=== PATIENT | female | born 1970 | race Caucasian/White ===

== ENCOUNTER 2016-12-02 21:57 | Inpatient (IN) | payer MEDICAID ==
[~2016-12-02] VITALS: Ht 167.6 cm; Wt 99.8 kg
[~2016-12-02 21:57] MED LIST: ALBUTEROL2.5 MG/3 M INH; BENADRYL50 MG ORAL; FERROUS SULFAT325 MG ORAL; GABAPENTIN300 MG ORAL; MOTRIN IB200 MG ORAL; NORCO 5-325 TA1 EACH ORAL; TEGRETOL XR200 MG ORAL; TRAMADOL HCL50 MG ORAL; VENLAFAXINE HCL25 MG ORAL; ZOFRAN ODT4 MG ORAL
[2016-12-02] MEDS ORDERED: HYDROmorphone 1mg/ml Carpuject IVP ONE (22:30)
--- NOTE | 2016-12-02 22:32 | Emergency Room Report ---
History of Present Illness General Chief Complaint: Chest Pain Source: Patient Present Illness HPI This is a 46-year-old female with a history of chronic pain. She presents with chief complaint of chest pain. Onset for last 2 days. She says been coughing for last 2 days and woke up with severe pain. Worse with inspiration. Worse with movement. Nothing made it better. Pain is 10 out of 10. Localized the left chest. No radiation. No diaphoresis. No shortness of breath. Allergies: Coded Allergies: AMOXICILLIN (Verified Allergy, Mild, 06/28/15) ASPIRIN (Verified Allergy, Mild, 06/28/15) SALICYLATES (Verified Allergy, Mild, 06/28/15) Patient History Past Medical History: see triage record, old chart reviewed Past Surgical History: other Pertinent Family History: none Social History: Denies: alcohol use, drug use, smoking Now: No Immunizations: other Reviewed Nursing Documentation: PMH: Agreed, PSxH: Agreed Nursing Documentation-PMH Hx Asthma: Yes Hx Gastrointestinal Problems: Yes - GALLSTONES Review of Systems Eye: Denies: blurred vision, eye pain ENT: Denies: ear pain, nose congestion, throat swelling Respiratory: Denies: cough, shortness of breath Cardiovascular: Reports: chest pain, Denies: palpitations Gastrointestinal: Denies: abdominal pain, diarrhea, nausea, vomiting Musculoskeletal: Denies: back pain, joint pain Skin: Denies: rash Neurological: Denies: headache, numbness Endocrine: Denies: increased thirst, increased urine Hematologic/Lymphatic: Denies: easy bruising All Other Systems: negative except mentioned in HPI Physical Exam Vital Signs Date Time Temp Pulse Resp B/P Pulse Ox O2 Delivery O2 Flow Rate FiO2 12/02/16 22:14 98.8 111 18 112/69 91 Room Air vitals with tachycardia and hypoxia Sp02 EP Interpretation: abnormal General Appearance: well appearing, alert, GCS 15, mild distress Head: normocephalic, atraumatic Eyes: bilateral eye EOMI, bilateral eye PERRL ENT: hearing grossly normal, normal pharynx Neck: full range of motion, supple, no meningismus Respiratory: chest non-tender, crackles - Left side Cardiovascular #1: regular rate, rhythm, no murmur Gastrointestinal: normal bowel sounds, non tender, no mass, no organomegaly, no bruit, non-distended Musculoskeletal: back normal, gait/station normal, normal range of motion Psychiatric: mood/affect normal Skin: warm/dry Medical Decision Making Diagnostic Impression: Primary Impression: Pneumonia Qualified Codes: J18.9 - Pneumonia, unspecified organism Additional Impressions: Intractable pain Sepsis Qualified Codes: A41.9 - Sepsis, unspecified organism Cocaine abuse Amphetamine abuse Proteinuria ER Course Patient presents with chest pain and finding consistent with pneumonia. CT scan also showed pneumonia. No evidence of any ACS, PE, dissection to name a few. She continued to complain of severe pain. Because of this we'll admit for IV antibiotics and pain control. This may be secondary to drug abuse. Lab Results Impression labs with leukocytosis. EKG Diagnostic Results Rate: normal, tachycardiac Rhythm: NSR ST Segments: no acute changes Rhythm Strip Diag. Results EP Interpretation: yes Rate: 100 Rhythm: NSR, no PVC's, no ectopy Chest X-Ray Diagnostic Results EP Interpretation: Yes Findings: no pneumothorax, other - LLL infiltrate with effusion Number of Views: 1 CT/MRI/US Diagnostic Results CT/MRI/US Diagnostic Results : Imaging Test Ordered: CT chest Impression Read by radiologist as LLL infiltrate with effusion. Last Vital Signs Date Time Temp Pulse Resp B/P Pulse Ox O2 Delivery O2 Flow Rate FiO2 12/02/16 22:14 98.8 111 18 112/69 91 Room Air Status: improved Disposition: ADMITTED INPATIENT Condition: Serious MITCH TANNER M.D. Dec 02, 2016 22:32
[2016-12-02 22:57] VITALS: BP 128/68
[2016-12-02 23:10] LABS: BASOPHILS % (AUTO) 0.7 % (0.0-2.0); LYMPHOCYTES % (AUTO) 13.7 % (20.0-45.0); MEAN CORPUSCULAR HGB CONC 33.4 G/DL (32.0-36.0); MEAN CORPUSCULAR VOLUME 90 FL (80-99); MEAN PLATELET VOLUME 5.8 FL (6.5-10.1); MONOCYTES % (AUTO) 8.3 % (1.0-10.0); NEUTROPHILS % (AUTO) 74.4 % (45.0-75.0); PLATELET COUNT 519 K/UL (150-450); RED BLOOD COUNT 4.72 M/UL (4.20-5.40); RED CELL DISTRIBUTION WIDTH 11.6 % (11.6-14.8); WHITE BLOOD COUNT 17.9 K/UL (4.8-10.8)
[2016-12-02 23:20] LABS: APPEARANCE,URINE SLIGHTLY CLOUDY; KETONES,URINE 1+ (NEGATIVE); LEUKOCYTE ESTERASE ,URINE 1+ (NEGATIVE); NITRITE,URINE NEGATIVE (NEGATIVE); PH,URINE 5 (4.5-8.0); PROTEIN,URINE 2+ (NEGATIVE); UROBILINOGEN,URINE 4 MG/DL (0.0-1.0)
[2016-12-02 23:24] LABS: ALANINE AMINOTRANSFERASE 26 U/L (3-33); ANION GAP 18 (5-15); ASPARTATE AMINO TRANSFERASE 28 U/L (5-40); CALCIUM 8.8 mg/dL (8.6-10.2); CARBON DIOXIDE 25 mEQ/L (20-30); CHLORIDE 94 mEQ/L (98-107); CREATININE 0.8 mg/dL (0.5-0.9); GLOMERULAR FILTRATION RATE > 60 mL/min (>60); HEMOLYSIS 2; POTASSIUM 3.4 mEQ/L (3.4-4.9); SODIUM 137 mEQ/L (135-145); TOTAL PROTEIN 7.1 g/dL (6.6-8.7); TROPONIN I < 0.30 ng/mL (<=0.30)
[2016-12-02 23:25] LABS: ICTOTEST POSITIVE
[2016-12-02 23:27] LABS: BACTERIA,URINE FEW /HPF; RBC,URINE 0-2 /HPF (0 - 2); SQUAMOUS EPITHELIAL CELL,UR MODERATE /LPF (NONE/OCC); WBC,URINE 0-2 /HPF (0 - 2)
[2016-12-02 23:28] LABS: MUCUS,URINE MODERATE /LPF (NONE/OCC)
[2016-12-02 23:34] LABS: CKMB < 1.5 ng/mL (< 3.8)
[2016-12-02 23:42] LABS: REFLEX LACTIC ACID YES OR NO YES
[2016-12-02 23:50] VITALS: BP 123/72
[2016-12-03] MEDS ORDERED: cefTRIAXone 1 GM in NS 55 ML IVPB ONE (01:15)
[2016-12-03] MEDS ORDERED: Morphine Sulfate 4mg/ml Inj IVP ONE ×2 (01:30→02:15)
[2016-12-03 02:05] VITALS: BP 124/77
[2016-12-03] MEDS ORDERED: Azithromycin 250mg tab ORAL ONE (02:15)
[2016-12-03 03:18] VITALS: BP 121/71
[2016-12-03] MEDS ORDERED: GABAPENTIN600 MG ORAL (04:28)
[2016-12-03] MEDS ORDERED: IBUPROFEN600 MG ORAL (04:31)
[2016-12-03] MEDS ORDERED: CYCLOBENZAPRINE10 MG ORAL (04:34)
[2016-12-03] MEDS ORDERED: DILAUDID2 MG ORAL (04:37)
[2016-12-03] MEDS ORDERED: MELOXICAM7.5 MG PO (04:37)
[2016-12-03] MEDS ORDERED: PRILOSEC OTC20 MG ORAL (04:37)
[2016-12-03] MEDS ORDERED: TYLENOL EXTRA500 MG ORAL (04:37)
[2016-12-03] MEDS ORDERED: Promethazine/Codeine 5ml UD ORAL PRN (06:15)
[2016-12-03] MEDS ORDERED: Nitroglycerin Subl 0.4mg tab (Bottle Of 25) SL PRN (06:15)
[2016-12-03] MEDS ORDERED: DuoNeb 0.5-3(2.5)mg/3ml neb HHN PRN (06:15)
[2016-12-03] MEDS ORDERED: Miralax 17gm pkt ORAL PRN (06:15)
[2016-12-03] MEDS ORDERED: Mylanta II UD 30ml ORAL PRN (06:15)
[2016-12-03 08:13] VITALS: BP 119/74
[2016-12-03] MEDS: Heparin 5000 units/ml inj SUBQ SCH ×2 (09:00→20:23)
[2016-12-03] MEDS: carBAMazepine XR 200mg tab ORAL SCH (09:00)
[2016-12-03] MEDS: Vancomycin 1250mg in D5W 275ml IVPB SCH ×3 (09:11→22:28)
--- NOTE | 2016-12-03 09:16 | Infectious Diseases Prog Note ---
Assessment/Plan Problems: (1) CAP (community acquired pneumonia) Assessment & Plan: continue vancomycin and aztreonam empirically, send blood and sputum culture (2) Sepsis Assessment & Plan: due to pneumonia , continue wide spectrum antibiotics , send blood culture (3) Drug abuse Assessment & Plan: will screen for HIV and hepatitis, recommend counseling and rehabilitation (4) UTI (urinary tract infection) Assessment & Plan: continue aztreonam and send culture Subjective Allergies: Coded Allergies: AMOXICILLIN (Verified Allergy, Mild, 06/28/15) ASPIRIN (Verified Allergy, Mild, 06/28/15) SALICYLATES (Verified Allergy, Mild, 06/28/15) Objective Vital Signs Last 24 Hour Vital Signs Date Time Temp Pulse Resp B/P Pulse Ox O2 Delivery O2 Flow Rate FiO2 12/03/16 08:13 99.0 102 19 119/74 95 Room Air 12/03/16 08:08 101 20 Room Air 12/03/16 03:30 98.8 101 20 121/71 94 Room Air 12/03/16 03:18 98.8 101 20 121/71 94 Room Air 12/03/16 02:44 98.8 12/03/16 02:05 98.8 101 24 124/77 94 Room Air 12/03/16 01:53 98.8 12/02/16 23:50 98.8 106 14 123/72 97 Room Air 12/02/16 23:50 98.8 12/02/16 22:58 111 18 Room Air 12/02/16 22:57 98.8 105 17 128/68 96 Room Air 12/02/16 22:14 98.8 111 18 112/69 91 Room Air Height (Feet): 5 Height (Inches): 6.00 Weight (Pounds): 220 Laboratory Tests Test 12/02/16 22:50 12/03/16 02:30 White Blood Count 17.9 K/UL (4.8-10.8) H Red Blood Count 4.72 M/UL (4.20-5.40) Hemoglobin 14.1 G/DL (12.0-16.0) Hematocrit 42.4 % (37.0-47.0) Mean Corpuscular Volume 90 FL (80-99) Mean Corpuscular Hemoglobin 30.0 PG (27.0-31.0) Mean Corpuscular Hemoglobin Concent 33.4 G/DL (32.0-36.0) Red Cell Distribution Width 11.6 % (11.6-14.8) Platelet Count 519 K/UL (150-450) H Mean Platelet Volume 5.8 FL (6.5-10.1) L Neutrophils (%) (Auto) 74.4 % (45.0-75.0) Lymphocytes (%) (Auto) 13.7 % (20.0-45.0) L Monocytes (%) (Auto) 8.3 % (1.0-10.0) Eosinophils (%) (Auto) 3.0 % (0.0-3.0) Basophils (%) (Auto) 0.7 % (0.0-2.0) D-Dimer 2633 ng/mL (<500) H Urine Color Yellow Urine Appearance Slightly cloudy Urine pH 5 (4.5-8.0) Urine Specific [place] 1.025 (1.005-1.035) Urine Protein 2+ (NEGATIVE) H Urine Glucose (UA) Negative (NEGATIVE) Urine Ketones 1+ (NEGATIVE) H Urine Occult Blood Negative (NEGATIVE) Urine Nitrite Negative (NEGATIVE) Urine Bilirubin 1+ (NEGATIVE) H Urine Ictotest Positive Urine Urobilinogen 4 MG/DL (0.0-1.0) H Urine Leukocyte Esterase 1+ (NEGATIVE) H Urine RBC 0-2 /HPF (0 - 2) Urine WBC 0-2 /HPF (0 - 2) Urine Squamous Epithelial Cells Moderate /LPF (NONE/OCC) H Urine Bacteria Few /HPF (NONE) Urine Mucus Moderate /LPF (NONE/OCC) H Urine HCG, Qualitative Negative Sodium Level 137 mEQ/L (135-145) Potassium Level 3.4 mEQ/L (3.4-4.9) Chloride Level 94 mEQ/L (98-107) L Carbon Dioxide Level 25 mEQ/L (20-30) Anion Gap 18 (5-15) H Blood Urea Nitrogen 8 mg/dL (7-23) Creatinine 0.8 mg/dL (0.5-0.9) Estimat Glomerular Filtration Rate > 60 mL/min (>60) Glucose Level 192 mg/dL (74-106) H Lactic Acid Level 2.10 mmol/L (0.66-2.22) 0.90 mmol/L (0.66-2.22) Calcium Level 8.8 mg/dL (8.6-10.2) Total Bilirubin 0.3 mg/dL (0.0-1.2) Aspartate Amino Transf (AST/SGOT) 28 U/L (5-40) Alanine Aminotransferase (ALT/SGPT) 26 U/L (3-33) Alkaline Phosphatase 72 U/L (35-104) Total Creatine Kinase 33 U/L (26-140) Creatine Kinase MB < 1.5 ng/mL (< 3.8) Troponin I < 0.30 ng/mL (<=0.30) Total Protein 7.1 g/dL (6.6-8.7) Albumin 3.6 g/dL (3.5-5.2) Globulin 3.5 g/dL Albumin/Globulin Ratio 1.0 (1.0-2.7) Urine Opiates Screen Negative (NEGATIVE) Urine Barbiturates Screen Negative (NEGATIVE) Phencyclidine (PCP) Screen Negative (NEGATIVE) Urine Amphetamines Screen Positive (NEGATIVE) H Urine Benzodiazepines Screen Negative (NEGATIVE) Urine Cocaine Screen Positive (NEGATIVE) H Urine Marijuana (THC) Screen Negative (NEGATIVE) Current Medications Medications (Trade) Dose Ordered Sig/Ok Route PRN Reason Start Time Stop Time Status Last Admin Dose Admin Acetaminophen (Tylenol) 650 mg Q4H PRN ORAL fever 12/03/16 06:15 01/02/17 06:14 Al Hydroxide/Mg Hydroxide (Mylanta II) 30 ml Q6H PRN ORAL dyspepsia 12/03/16 06:15 01/02/17 06:14 Albuterol/ Ipratropium (DuoNeb 0.5-3(2.5)mg/3ml) 3 ml Q4H PRN HHN Shortness of Breath 12/03/16 06:15 12/08/16 06:14 Aztreonam/Sodium Chloride (Azactam/Sodium Chloride) 55 ml @ 110 mls/hr Q8H IVPB 12/03/16 14:00 12/10/16 13:59 Carbamazepine (TEGretol XR) 200 mg DAILY ORAL 12/03/16 09:00 01/02/17 08:59 Heparin Sodium (Porcine) (Heparin 5000 units/ml) 5,000 units EVERY 12 HOURS SUBQ 12/03/16 09:00 01/02/17 08:59 Nitroglycerin (Ntg) 0.4 mg Q5M PRN SL Prn Chest Pain 12/03/16 06:15 01/02/17 06:14 Ondansetron HCl (Zofran) 4 mg Q6H PRN IVP Nausea & Vomiting 12/03/16 06:15 01/02/17 06:14 Polyethylene Glycol (Miralax) 17 gm DAILYPRN PRN ORAL Constipation 12/03/16 06:15 01/02/17 06:14 Promethazine HCl/ Codeine (Phenergan with Codeine) 5 ml Q4H PRN ORAL For Cough 12/03/16 06:15 01/02/17 06:14 Temazepam 15 mg 15 mg HSPRN PRN ORAL Insomnia 12/03/16 06:15 12/10/16 06:14 Vancomycin HCl 1 ea 1 ea DAILY PRN MISC Per rx protocol 12/03/16 06:15 01/02/17 06:14 Vancomycin HCl/ Dextrose (Vancomycin/D5W) 275 ml @ 183.708 mls/hr Q8H IVPB 12/03/16 07:00 12/08/16 06:59 Josue Kelley M.D. Dec 03, 2016 09:16
--- NOTE | 2016-12-03 10:23 | Diagnostic Imaging Report ---
Indication: Chest pain Technique: One view of the chest Comparison: 01/31/2009 Findings: Interim development of left basilar opacity, consistent with combination of consolidation and pleural fluid. This is also demonstrated on subsequent chest CTA. Heart size is upper limits of normal. The right lung and pleural space are clear Impression: Left basilar opacity, consistent with parenchymal consolidation and pleural fluid documented on subsequent chest CT
[2016-12-03] MEDS: Morphine Sulfate 4mg/ml Inj IVP PRN ×3 (11:05→20:24)
--- NOTE | 2016-12-03 11:08 | Consultation ---
History of Present Illness General Date patient seen: Dec 03, 2016 Chief Complaint: Chest Pain Reason for Consultation: pneumonia Present Illness HPI 46-year-old female with a history of chronic pain. She presents with chief complaint of chest pain. Onset for last 2 days. She says been coughing for last 2 days and woke up with severe pain. She had a cxr and CT chest in ER showing LLL effusion. She doens't recall having fever or chills Allergies: Coded Allergies: AMOXICILLIN (Verified Allergy, Mild, 06/28/15) ASPIRIN (Verified Allergy, Mild, 06/28/15) SALICYLATES (Verified Allergy, Mild, 06/28/15) Medication History Scheduled Carbamazepine (Tegretol Xr), 200 MG ORAL 5 TIMES PER DAY, (Reported) Cyclobenzaprine Hcl* (Flexeril*), 10 MG ORAL THREE TIMES A DAY, (Reported) Ferrous Sulfate* (Ferrous Sulfate*), 325 MG ORAL TWICE A DAY, (Reported) Gabapentin* (Gabapentin*), 600 MG ORAL THREE TIMES A DAY, (Reported) Hydromorphone HCl (Dilaudid), 2 MG ORAL Q4H, (Reported) Ibuprofen* (Motrin*), 600 MG ORAL THREE TIMES A DAY, (Reported) Meloxicam* (Meloxicam*), 7.5 MG PO DAILY, (Reported) Omeprazole Magnesium (Prilosec Otc), 20 MG ORAL DAILY, (Reported) Scheduled PRN Acetaminophen* (Tylenol Extra Strength*), 500 MG ORAL Q6H PRN for Mild Pain/ Temp > 100.5, (Reported) Albuterol Sulfate* (Albuterol Sulfate Hhn*), 3 ML INH Q6H PRN for Shortness of Breath, (Reported) Diphenhydramine HCl (Diphenhydramine HCl), 50 MG ORAL HS PRN for Itching, ( Reported) Ondansetron Odt* (Zofran Odt*), 4 MG ORAL Q8H PRN for Nausea & Vomiting Discontinued Medications Gabapentin* (Gabapentin*), 300 MG ORAL THREE TIMES A DAY, (Reported) Discontinued Reason: Medication dose changed Hydrocodone Bit/Acetaminophen 5-325* (Banner 5-325*), 1 TAB ORAL Q6H PRN for For Pain Discontinued Reason: Pt stopped taking med Ibuprofen* (Motrin Ib*), 200 MG ORAL Q6H, (Reported) Discontinued Reason: Medication dose changed Tramadol Hcl* (Ultram*), 50 MG ORAL Q6H PRN for For Pain, (Reported) Discontinued Reason: Pt stopped taking med Tramadol Hcl* (Ultram*), 50 MG ORAL Q6H PRN for For Pain Discontinued Reason: Pt stopped taking med Venlafaxine Hcl* (Effexor*), 100 MG ORAL THREE TIMES A DAY, (Reported) Discontinued Reason: Pt stopped taking med Patient History Healthcare decision maker Resuscitation status Full Code Advanced Directive on File Past Medical/Surgical History Past Medical/Surgical History: (1) Drug abuse (2) Amphetamine abuse Review of Systems All Other Systems: negative except mentioned in HPI Physical Exam General Appearance: WD/WN Lines, tubes and drains: peripheral, central line HEENT: normocephalic, atraumatic Respiratory/Chest: chest wall non-tender, lungs clear Cardiovascular/Chest: normal peripheral pulses, normal rate Abdomen: normal bowel sounds, non tender Genitourinary/Rectal: normal genital exam Last 24 Hour Vital Signs Date Time Temp Pulse Resp B/P Pulse Ox O2 Delivery O2 Flow Rate FiO2 12/03/16 08:13 99.0 102 19 119/74 95 Room Air 12/03/16 08:08 101 20 Room Air 12/03/16 03:30 98.8 101 20 121/71 94 Room Air 12/03/16 03:18 98.8 101 20 121/71 94 Room Air 12/03/16 02:44 98.8 12/03/16 02:05 98.8 101 24 124/77 94 Room Air 12/03/16 01:53 98.8 12/02/16 23:50 98.8 106 14 123/72 97 Room Air 12/02/16 23:50 98.8 12/02/16 22:58 111 18 Room Air 12/02/16 22:57 98.8 105 17 128/68 96 Room Air 12/02/16 22:14 98.8 111 18 112/69 91 Room Air Intake and Output 12/02/16 12/03/16 19:00 07:00 Intake Total 1425 ml Balance 1425 ml Intake Oral 120 ml IV Total 1305 ml # Voids 1 Laboratory Tests Test 12/02/16 22:50 12/03/16 02:30 White Blood Count 17.9 K/UL (4.8-10.8) H Red Blood Count 4.72 M/UL (4.20-5.40) Hemoglobin 14.1 G/DL (12.0-16.0) Hematocrit 42.4 % (37.0-47.0) Mean Corpuscular Volume 90 FL (80-99) Mean Corpuscular Hemoglobin 30.0 PG (27.0-31.0) Mean Corpuscular Hemoglobin Concent 33.4 G/DL (32.0-36.0) Red Cell Distribution Width 11.6 % (11.6-14.8) Platelet Count 519 K/UL (150-450) H Mean Platelet Volume 5.8 FL (6.5-10.1) L Neutrophils (%) (Auto) 74.4 % (45.0-75.0) Lymphocytes (%) (Auto) 13.7 % (20.0-45.0) L Monocytes (%) (Auto) 8.3 % (1.0-10.0) Eosinophils (%) (Auto) 3.0 % (0.0-3.0) Basophils (%) (Auto) 0.7 % (0.0-2.0) D-Dimer 2633 ng/mL (<500) H Urine Color Yellow Urine Appearance Slightly cloudy Urine pH 5 (4.5-8.0) Urine Specific [place] 1.025 (1.005-1.035) Urine Protein 2+ (NEGATIVE) H Urine Glucose (UA) Negative (NEGATIVE) Urine Ketones 1+ (NEGATIVE) H Urine Occult Blood Negative (NEGATIVE) Urine Nitrite Negative (NEGATIVE) Urine Bilirubin 1+ (NEGATIVE) H Urine Ictotest Positive Urine Urobilinogen 4 MG/DL (0.0-1.0) H Urine Leukocyte Esterase 1+ (NEGATIVE) H Urine RBC 0-2 /HPF (0 - 2) Urine WBC 0-2 /HPF (0 - 2) Urine Squamous Epithelial Cells Moderate /LPF (NONE/OCC) H Urine Bacteria Few /HPF (NONE) Urine Mucus Moderate /LPF (NONE/OCC) H Urine HCG, Qualitative Negative Sodium Level 137 mEQ/L (135-145) Potassium Level 3.4 mEQ/L (3.4-4.9) Chloride Level 94 mEQ/L (98-107) L Carbon Dioxide Level 25 mEQ/L (20-30) Anion Gap 18 (5-15) H Blood Urea Nitrogen 8 mg/dL (7-23) Creatinine 0.8 mg/dL (0.5-0.9) Estimat Glomerular Filtration Rate > 60 mL/min (>60) Glucose Level 192 mg/dL (74-106) H Lactic Acid Level 2.10 mmol/L (0.66-2.22) 0.90 mmol/L (0.66-2.22) Calcium Level 8.8 mg/dL (8.6-10.2) Total Bilirubin 0.3 mg/dL (0.0-1.2) Aspartate Amino Transf (AST/SGOT) 28 U/L (5-40) Alanine Aminotransferase (ALT/SGPT) 26 U/L (3-33) Alkaline Phosphatase 72 U/L (35-104) Total Creatine Kinase 33 U/L (26-140) Creatine Kinase MB < 1.5 ng/mL (< 3.8) Troponin I < 0.30 ng/mL (<=0.30) Total Protein 7.1 g/dL (6.6-8.7) Albumin 3.6 g/dL (3.5-5.2) Globulin 3.5 g/dL Albumin/Globulin Ratio 1.0 (1.0-2.7) Urine Opiates Screen Negative (NEGATIVE) Urine Barbiturates Screen Negative (NEGATIVE) Phencyclidine (PCP) Screen Negative (NEGATIVE) Urine Amphetamines Screen Positive (NEGATIVE) H Urine Benzodiazepines Screen Negative (NEGATIVE) Urine Cocaine Screen Positive (NEGATIVE) H Urine Marijuana (THC) Screen Negative (NEGATIVE) Height (Feet): 5 Height (Inches): 6.00 Weight (Pounds): 220 Medications Current Medications Medications (Trade) Dose Ordered Sig/Ok Route PRN Reason Start Time Stop Time Status Last Admin Dose Admin Acetaminophen (Tylenol) 650 mg Q4H PRN ORAL fever 12/03/16 06:15 01/02/17 06:14 Al Hydroxide/Mg Hydroxide (Mylanta II) 30 ml Q6H PRN ORAL dyspepsia 12/03/16 06:15 01/02/17 06:14 Albuterol/ Ipratropium (DuoNeb 0.5-3(2.5)mg/3ml) 3 ml Q4H PRN HHN Shortness of Breath 12/03/16 06:15 12/08/16 06:14 Aztreonam/Sodium Chloride (Azactam/Sodium Chloride) 55 ml @ 110 mls/hr Q8H IVPB 12/03/16 14:00 12/10/16 13:59 Carbamazepine (TEGretol XR) 200 mg DAILY ORAL 12/03/16 09:00 01/02/17 08:59 Heparin Sodium (Porcine) (Heparin 5000 units/ml) 5,000 units EVERY 12 HOURS SUBQ 12/03/16 09:00 01/02/17 08:59 Morphine Sulfate (Morphine Sulfate) 4 mg Q4H PRN IVP Severe Pain (Pain Scale 7-10) 12/03/16 10:45 12/10/16 10:44 Nitroglycerin (Ntg) 0.4 mg Q5M PRN SL Prn Chest Pain 12/03/16 06:15 01/02/17 06:14 Ondansetron HCl (Zofran) 4 mg Q6H PRN IVP Nausea & Vomiting 12/03/16 06:15 01/02/17 06:14 Polyethylene Glycol (Miralax) 17 gm DAILYPRN PRN ORAL Constipation 12/03/16 06:15 01/02/17 06:14 Promethazine HCl/ Codeine (Phenergan with Codeine) 5 ml Q4H PRN ORAL For Cough 12/03/16 06:15 01/02/17 06:14 Temazepam 15 mg 15 mg HSPRN PRN ORAL Insomnia 12/03/16 06:15 12/10/16 06:14 Vancomycin HCl 1 ea 1 ea DAILY PRN MISC Per rx protocol 12/03/16 06:15 01/02/17 06:14 Vancomycin HCl/ Dextrose (Vancomycin/D5W) 275 ml @ 183.708 mls/hr Q8H IVPB 12/03/16 07:00 12/08/16 06:59 12/03/16 09:11 Assessment/Plan Problem List: (1) Pneumonia ICD Codes: J18.9 - Pneumonia, unspecified organism SNOMED: 057821603 Qualifiers: Qualified Codes: J18.9 - Pneumonia, unspecified organism (2) Pleural effusion ICD Codes: J90 - Pleural effusion, not elsewhere classified SNOMED: 70546697 (3) Amphetamine abuse ICD Codes: F15.10 - Other stimulant abuse, uncomplicated SNOMED: 14449463, 431551243 Assessment/Plan respiratory treatment IV antibiotics thoracentesis HIV PPd testing. LUIGI RAMÍREZ Dec 03, 2016 11:08
[2016-12-03 11:30] VITALS: BP 126/75
--- NOTE | 2016-12-03 12:11 | Cardiology Report ---
APPROVED REPORT EKG Measurement Heart [id number] Sinus tachycardia Otherwise normal ECG
[2016-12-03] MEDS ORDERED: PPD Tuberculin Skin Test 5TU IDERMAL ONE (13:00)
[2016-12-03 13:37] LABS: INR 1.1 (0.9-1.1); PROTHROMBIN TIME 10.7 SEC (9.30-11.50)
[2016-12-03] MEDS: Aztreonam Inj 1 GM in NS 55 ML IVPB SCH ×3 (14:47→21:12)
[2016-12-03 15:58] LABS: TROPONIN I < 0.30 ng/mL (<=0.30)
[2016-12-03 16:00] VITALS: BP 124/77
--- NOTE | 2016-12-03 16:07 | Diagnostic Imaging Report ---
Indication: PAIN Technique: 3 views of the left shoulder Comparison: None Findings: No acute fractures or dislocations. Joint spaces are preserved. Impression: Negative
[2016-12-03] MEDS: NovoLOG Insulin Flexpen SUBQ SCH ×3 (16:30→20:23)
[2016-12-03] MEDS: metroNIDAZOLE 500mg tab ORAL SCH ×2 (16:46→21:06)
[2016-12-03 20:00] VITALS: BP 124/74
--- NOTE | 2016-12-03 21:27 | History and Physical Report ---
DATE OF ADMISSION: 12/03/2016 TIME SEEN: 1 p.m. ATTENDING PHYSICIAN: Aidan Melara D.O. CONSULTANTS: 1. Bhavani Escobar M.D. 2. Josue Kelley M.D. CHIEF COMPLIANT: Shortness of breath and coughing. HISTORY OF PRESENT ILLNESS: The patient is a 46-year-old female, homeless, who presented to [facility] last night with increased shortness of breath and coughing for a week, diagnosed with pneumonia, coughing, and sepsis and admitted to medical floor for further treatment. Currently, calm, slightly short of breath, in bed, , and no complaints otherwise. PAST MEDICAL HISTORY: Includes diabetes. PAST SURGICAL HISTORY: Chest . MEDICATIONS: Aztreonam, morphine, gabapentin, vancomycin, MiraLax, Zofran, promethazine, vancomycin, Restoril, and Phenergan With Codeine. ALLERGIES: Penicillin, aspirin, amoxicillin, and salicylate. SOCIAL HISTORY: No smoking. No alcohol. Positive methamphetamine use. REVIEW OF SYSTEMS: No chest pain. Slightly short of breath. No nausea, vomiting, or diarrhea. PHYSICAL EXAMINATION: In general, calm in bed, oriented x3, and in no acute distress. LABORATORY DATA: White count 17 and platelets 519,000, otherwise CBC is normal. BMP show chloride 94 and glucose 192, otherwise normal. INR, D-dimer 253. Urine tox is positive for amphetamine and cocaine. Urinalysis, 1+ leukocyte esterase. ASSESSMENT: 1. Urinary tract infection. 2. Pneumonia. 3. Shortness of breath. 4. Cough. 5. Sepsis. 6. diabetes. PLAN: Continue premedications. O2 and pulmonary treatment. Antibiotics per Infectious Disease. Blood pressure, controlled. Blood sugar, controlled. Dietary followup. OT, PT, and dietary evaluation. CBC and BMP in the morning. We will continue to follow this patient. Dr. Escobar, Dr. Kelley, and Dr. Wright to consult. Aidan Melara D.O. DR: BETTY JOB#: [id number] CC:
--- NOTE | 2016-12-03 22:07 | Consultation ---
DATE OF CONSULTATION: REQUESTING PHYSICIAN: Aidan Melara D.O. REASON FOR CONSULTATION: Pneumonia, possible sepsis, recommendation for antibiotics therapy. HISTORY OF PRESENT ILLNESS: The patient is a 46-year-old female with history of asthma, gallstones, chronic pain syndrome, presented to the emergency room with chief complaint of left-sided chest pain for two days. The patient had a dry cough and developed severe left-sided chest pain worse with breathing and movement, pain was 10/10, localized on the left chest, get worse with moving her left arm and shoulder, radiates to the back. Denied any shortness of breath but she had cough productive and chills. The patient denied any trauma to the chest. She had temperature of 98.8 in the emergency room, saturating 91% on room air. The patient's chest x-ray showed left lower infiltrate with effusion. The patient was started on antibiotics therapy and I was consulted by the primary provider for antibiotics treatment and further recommendation. REVIEW OF SYSTEMS: A 12 point system reviewed were all negative apart from the one I mentioned above in my History and Physical. PAST MEDICAL HISTORY: Significant for asthma and gallstones. PAST SURGICAL HISTORY: Negative. MEDICATIONS: The patient received ceftriaxone and Zithromax in the emergency room. For the rest of the medications, please refer to MAR. ALLERGIES: She is allergic to amoxicillin, aspirin, and salicylates. FAMILY HISTORY: Noncontributory. SOCIAL HISTORY: The patient used drugs. She tested positive for cocaine and amphetamine, she sniff it and does not inject it. Denies any tobacco. She drink alcohol occasionally. She lives home alone. Unemployed on disability. PHYSICAL EXAMINATION: VITAL SIGNS: Temperature 98.9, pulse 106, respirations 20, blood pressure 126/75, saturation 90% on room air. GENERAL: Middle-aged female, lying in bed, awake, alert, complaining of left-sided pleuritic chest pain not in acute distress. HEENT: normocephalic and atraumatic. Pupils are reactive to light equally. Moist oral mucosa. No exudate. NECK: Supple. No lymphadenopathy. CARDIOVASCULAR: Regular rate and rhythm. No murmur. Tachycardic. LUNGS: She had diminished breathing sound on the left side mainly at the bases with crackles. Normal breathing sound with local chest wall tenderness and decreased range of motion in the left shoulder. No swelling or effusion in the left shoulder. ABDOMEN: Obese, soft, nontender nondistended. Positive bowel sounds. No hepatosplenomegaly. No ascites. EXTREMITIES: No edema or cyanosis. His left shoulder tenderness. SKIN: No rash or hives. LABORATORY AND DIAGNOSTIC DATA: White count 17.9, hemoglobin 14.1, and platelet count 519,000. BUN of 8 and creatinine of 0.8. Glucose of 192. AST of 28, ALT of 26. Serology was negative for human immunodeficiency virus and hepatitis panel is pending. Microbiology pending at this point. Imaging, chest x-ray showed left basilar opacity consistent with parenchymal consolidation and pleural fluid documented on subsequent chest CT. ASSESSMENT AND PLAN: 1. Community-acquired pneumonia complicated with pleural effusion, rule out empyema. We will continue vancomycin and aztreonam at this point since there were started in the emergency room. We will add Flagyl to cover anaerobes. Send blood culture and sputum culture. Recommend thoracentesis and fluid to be sent for culture, AFB, and fungal to rule out empyema. Pulmonary is following. 2. Sepsis due to pneumonia. Continue wide-spectrum antibiotics and blood culture. Await result. 3. Drug abuse including cocaine and amphetamines. We will screen patient for human immunodeficiency virus and hepatitis. Recommend counseling and rehabilitation. 4. Urinary tract infection. Continue aztreonam and await urine culture. Josue Kelley M.D. DR: Crystal JOB#: [id number] CC: SANDRA
[2016-12-04] VITALS (7 sets, daily range): BP systolic 113–130; BP diastolic 72–81
[2016-12-04] MEDS: Morphine Sulfate 4mg/ml Inj IVP PRN ×5 (05:22→23:56)
[2016-12-04] MEDS: metroNIDAZOLE 500mg tab ORAL SCH ×3 (05:22→21:14)
[2016-12-04] MEDS: NovoLOG Insulin Flexpen SUBQ SCH ×4 (05:54→21:00)
[2016-12-04] MEDS: Aztreonam Inj 1 GM in NS 55 ML IVPB SCH ×3 (05:55→21:14)
[2016-12-04] MEDS: Vancomycin 1250mg in D5W 275ml IVPB SCH ×4 (06:41→23:56)
[2016-12-04 07:16] LABS: BASOPHILS % (AUTO) 0.5 % (0.0-2.0); EOSINOPHILS % (AUTO) 1.5 % (0.0-3.0); LYMPHOCYTES % (AUTO) 7.3 % (20.0-45.0); MEAN CORPUSCULAR HEMOGLOBIN 30.5 PG (27.0-31.0); MEAN CORPUSCULAR HGB CONC 34.6 G/DL (32.0-36.0); MEAN CORPUSCULAR VOLUME 88 FL (80-99); MEAN PLATELET VOLUME 6.3 FL (6.5-10.1); MONOCYTES % (AUTO) 10.4 % (1.0-10.0); NEUTROPHILS % (AUTO) 80.4 % (45.0-75.0); PLATELET COUNT 449 K/UL (150-450); RED BLOOD COUNT 4.16 M/UL (4.20-5.40); RED CELL DISTRIBUTION WIDTH 11.6 % (11.6-14.8); WHITE BLOOD COUNT 17.2 K/UL (4.8-10.8)
[2016-12-04 07:32] LABS: ANION GAP 12 (5-15); CALCIUM 8.7 mg/dL (8.6-10.2); CARBON DIOXIDE 26 mEQ/L (20-30); CHLORIDE 100 mEQ/L (98-107); CREATININE 0.7 mg/dL (0.5-0.9); GLOMERULAR FILTRATION RATE > 60 mL/min (>60); HEMOLYSIS 4; PHOSPHORUS 3.3 mg/dL (2.5-4.8); SODIUM 138 mEQ/L (135-145)
[2016-12-04 07:53] LABS: ANION GAP 13 (5-15); CALCIUM 8.7 mg/dL (8.6-10.2); CARBON DIOXIDE 24 mEQ/L (20-30); CHLORIDE 97 mEQ/L (98-107); CREATININE 0.6 mg/dL (0.5-0.9); GLOMERULAR FILTRATION RATE > 60 mL/min (>60); POTASSIUM 4.6 mEQ/L (3.4-4.9); SODIUM 134 mEQ/L (135-145)
--- NOTE | 2016-12-04 08:47 | Consultation ---
DATE OF CONSULTATION: 12/04/2016 ENDOCRINOLOGY CONSULTATION CONSULTING PHYSICIAN: Evan Wright M.D. REFERRING PHYSICIAN: Aidan Melara D.O. REASON FOR CONSULTATION: Diabetes management. HISTORY OF PRESENT ILLNESS: The patient is a 46-year-old female with history of asthma, gallstones, chronic pain syndrome, presented to the hospital with left-sided chest pain with right pneumonia. The patient is diabetic and Endocrinology was consulted . PAST MEDICAL HISTORY: Diabetes type 1, asthma, and gallstones. PAST SURGICAL HISTORY: None. MEDICATIONS: Reviewed and reconciled. ALLERGIES: Amoxicillin, aspirin, and salicylates SOCIAL HISTORY: The patient is to use drugs, tested positive for cocaine and amphetamine. No alcohol and no smoking. She lives at home. She is unemployed on disability. FAMILY HISTORY: Noncontributory. REVIEW OF SYSTEMS: As per history of present illness. PHYSICAL EXAMINATION: VITAL SIGNS: Blood pressure is 126/75, pulse of 100, temperature of 98.0 degrees, and respiratory rate 18. HEENT: Pupils are equal and reactive to light and accommodation. Sclerae are anicteric NECK: No JVD. No thyromegaly. No bruit. LUNGS: Diminished breath sounds on the left side. HEART: Regular rate and rhythm. ABDOMEN: Positive bowel sounds. EXTREMITIES: No clubbing. No cyanosis. No edema. LABORATORY AND DIAGNOSTIC DATA: Laboratory values, sodium 137, potassium 3.4, chloride 94, bicarbonate 25, BUN 8, creatinine 0.9, and glucose of 192. A1c is pending. WBC 58892, hemoglobin 14, hematocrit 42.4, and platelets of 519,000. DIAGNOSES: 1. Pneumonia. 2. Diabetes, out of control. PLAN: Blood glucose monitoring before meal and at bedtime. Covering with sliding scale insulin. Will decide on basal-bolus insulin regimen versus oral regimen. I will follow her during her stay. Thank you, Dr. Melara, for the courtesy of this consultation. Evan Wright M.D. DR: BRITTON/shelley JOB#: [id number] CC: SANDRA
[2016-12-04] MEDS: carBAMazepine XR 200mg tab ORAL SCH (08:48)
[2016-12-04] MEDS: Heparin 5000 units/ml inj SUBQ SCH ×2 (08:48→21:00)
--- NOTE | 2016-12-04 13:52 | General Progress Note ---
Assessment/Plan Problem List: (1) Sepsis ICD Codes: A41.9 - Sepsis, unspecified organism SNOMED: 23907196, 532688907 Qualifiers: Qualified Codes: A41.9 - Sepsis, unspecified organism (2) Pneumonia ICD Codes: J18.9 - Pneumonia, unspecified organism SNOMED: 750637527 Qualifiers: Qualified Codes: J18.9 - Pneumonia, unspecified organism (3) UTI (urinary tract infection) ICD Codes: N39.0 - Urinary tract infection, site not specified SNOMED: 42289741 (4) Pleural effusion ICD Codes: J90 - Pleural effusion, not elsewhere classified SNOMED: 69393168 Status: stable, progressing, tolerating diet Assessment/Plan o2 pulm tx abx cbc bmp am Subjective Constitutional: Reports: weakness Respiratory: Reports: shortness of breath Allergies: Coded Allergies: AMOXICILLIN (Verified Allergy, Mild, 06/28/15) ASPIRIN (Verified Allergy, Mild, 06/28/15) SALICYLATES (Verified Allergy, Mild, 06/28/15) All Systems: reviewed and negative except above Subjective o2nc sleepy Objective Last 24 Hour Vital Signs Date Time Temp Pulse Resp B/P Pulse Ox O2 Delivery O2 Flow Rate FiO2 12/04/16 08:01 100.9 101 20 124/79 95 Nasal Cannula 3.0 12/04/16 07:48 106 20 Room Air 12/04/16 07:47 Nasal Cannula 3.0 32 12/04/16 07:47 94 Nasal Cannula 3.0 32 12/04/16 05:52 97.8 12/04/16 04:00 97.8 94 18 121/74 89 Room Air 12/04/16 00:00 97.7 95 18 113/76 85 Room Air 12/03/16 22:06 99.1 12/03/16 20:19 Room Air 12/03/16 20:19 110 18 Room Air 12/03/16 20:19 94 Room Air 12/03/16 20:00 100.6 108 21 124/74 96 Room Air 12/03/16 16:00 99.9 100 20 124/77 94 Nasal Cannula 3.0 12/03/16 15:07 94 Nasal Cannula 2.0 28 12/03/16 15:07 Nasal Cannula 2.0 28 Intake and Output 12/03/16 12/04/16 19:00 07:00 Intake Total 850.000 ml 320 ml Balance 850.000 ml 320 ml Intake Oral 520 ml 320 ml IV Total 330.000 ml # Voids 2 3 Laboratory Tests 12/03/16 14:25: Troponin I < 0.30 12/04/16 05:50: White Blood Count 17.2H, Red Blood Count 4.16L, Hemoglobin 12.7, Hematocrit 36.7L, Mean Corpuscular Volume 88, Mean Corpuscular Hemoglobin 30.5, Mean Corpuscular Hemoglobin Concent 34.6, Red Cell Distribution Width 11.6, Platelet Count 449, Mean Platelet Volume 6.3L, Neutrophils (%) (Auto) 80.4H, Lymphocytes (%) (Auto) 7.3L, Monocytes (%) (Auto) 10.4H, Eosinophils (%) (Auto) 1.5, Basophils (%) (Auto) 0.5, Sodium Level 134L, Potassium Level 4.6, Chloride Level 97L, Carbon Dioxide Level 24, Anion Gap 13, Blood Urea Nitrogen 12, Creatinine 0.6, Estimat Glomerular Filtration Rate > 60, Glucose Level 120H, Calcium Level 8.7, Phosphorus Level 3.3, Albumin 2.9L Height (Feet): 5 Height (Inches): 6.00 Weight (Pounds): 220 General Appearance: lethargic EENT: normal ENT inspection Neck: normal alignment Cardiovascular: normal peripheral pulses, normal rate, regular rhythm Respiratory/Chest: chest wall non-tender, lungs clear, decreased breath sounds Abdomen: normal bowel sounds, non tender, soft Extremities: normal inspection Edema: no edema noted Arm (L), no edema noted Arm (R), no edema noted Leg (L), no edema noted Leg (R), no edema noted Pedal (L), no edema noted Pedal (R), no edema noted Generalized Neurologic: responsive, motor weakness Skin: normal pigmentation, warm/dry MARIZOL MAGUIRE Dec 04, 2016 13:52
--- NOTE | 2016-12-04 16:59 | Infectious Diseases Prog Note ---
Assessment/Plan Problems: (1) CAP (community acquired pneumonia) Assessment & Plan: continue vancomycin, flagyl and aztreonam empirically, send blood and sputum culture (2) Sepsis Assessment & Plan: due to pneumonia , continue wide spectrum antibiotics , send blood culture (3) Drug abuse Assessment & Plan: will screen for HIV and hepatitis, recommend counseling and rehabilitation (4) UTI (urinary tract infection) Assessment & Plan: continue aztreonam and send culture (5) Pleural effusion Assessment & Plan: needs to rule out empyema, recommend thoracentesis and fluids to be sent for culture , fungal and AFB, and for cytology Subjective Constitutional: Reports: fatigue, fever Respiratory: Reports: dry cough Cardiovascular: Reports: chest pain Psychiatric: Reports: anxiety, depression Allergies: Coded Allergies: AMOXICILLIN (Verified Allergy, Mild, 06/28/15) ASPIRIN (Verified Allergy, Mild, 06/28/15) SALICYLATES (Verified Allergy, Mild, 06/28/15) All Systems: reviewed and negative except above Objective Vital Signs Last 24 Hour Vital Signs Date Time Temp Pulse Resp B/P Pulse Ox O2 Delivery O2 Flow Rate FiO2 12/04/16 16:30 100.0 107 20 128/81 93 Nasal Cannula 3.0 12/04/16 12:00 99.8 100 20 130/75 95 Nasal Cannula 3.0 12/04/16 08:01 100.9 101 20 124/79 95 Nasal Cannula 3.0 12/04/16 07:48 106 20 Room Air 12/04/16 07:47 Nasal Cannula 3.0 32 12/04/16 07:47 94 Nasal Cannula 3.0 32 12/04/16 05:52 97.8 12/04/16 04:00 97.8 94 18 121/74 89 Room Air 12/04/16 00:00 97.7 95 18 113/76 85 Room Air 12/03/16 22:06 99.1 12/03/16 20:19 Room Air 12/03/16 20:19 110 18 Room Air 12/03/16 20:19 94 Room Air 12/03/16 20:00 100.6 108 21 124/74 96 Room Air Height (Feet): 5 Height (Inches): 6.00 Weight (Pounds): 220 General Appearance: WD/WN, no acute distress HEENT: normocephalic, atraumatic, anicteric, mucous membranes moist Respiratory/Chest: normal breath sounds, no respiratory distress, no accessory muscle use, decreased breath sounds, crackles/rales Cardiovascular: normal peripheral pulses, normal rate, regular rhythm, no gallop/murmur, no JVD Abdomen: normal bowel sounds, soft, non tender, no organomegaly, non distended , no mass, no scars Extremities: no cyanosis, no clubbing Skin: no rash, no lesions, no ulcers Microbiology Date/Time Source Procedure Growth Status 12/02/16 22:50 Blood Blood Culture - Preliminary NO GROWTH AFTER 24 HOURS Resulted 12/02/16 22:35 Blood Blood Culture - Preliminary NO GROWTH AFTER 24 HOURS Resulted Laboratory Tests Test 12/04/16 05:50 White Blood Count 17.2 K/UL (4.8-10.8) H Red Blood Count 4.16 M/UL (4.20-5.40) L Hemoglobin 12.7 G/DL (12.0-16.0) Hematocrit 36.7 % (37.0-47.0) L Mean Corpuscular Volume 88 FL (80-99) Mean Corpuscular Hemoglobin 30.5 PG (27.0-31.0) Mean Corpuscular Hemoglobin Concent 34.6 G/DL (32.0-36.0) Red Cell Distribution Width 11.6 % (11.6-14.8) Platelet Count 449 K/UL (150-450) Mean Platelet Volume 6.3 FL (6.5-10.1) L Neutrophils (%) (Auto) 80.4 % (45.0-75.0) H Lymphocytes (%) (Auto) 7.3 % (20.0-45.0) L Monocytes (%) (Auto) 10.4 % (1.0-10.0) H Eosinophils (%) (Auto) 1.5 % (0.0-3.0) Basophils (%) (Auto) 0.5 % (0.0-2.0) Sodium Level 134 mEQ/L (135-145) L Potassium Level 4.6 mEQ/L (3.4-4.9) Chloride Level 97 mEQ/L (98-107) L Carbon Dioxide Level 24 mEQ/L (20-30) Anion Gap 13 (5-15) Blood Urea Nitrogen 12 mg/dL (7-23) Creatinine 0.6 mg/dL (0.5-0.9) Estimat Glomerular Filtration Rate > 60 mL/min (>60) Glucose Level 120 mg/dL (74-106) H Calcium Level 8.7 mg/dL (8.6-10.2) Phosphorus Level 3.3 mg/dL (2.5-4.8) Albumin 2.9 g/dL (3.5-5.2) L Current Medications Medications (Trade) Dose Ordered Sig/Ok Route PRN Reason Start Time Stop Time Status Last Admin Dose Admin Acetaminophen (Tylenol) 650 mg Q4H PRN ORAL fever 12/03/16 06:15 01/02/17 06:14 12/03/16 21:07 Al Hydroxide/Mg Hydroxide (Mylanta II) 30 ml Q6H PRN ORAL dyspepsia 12/03/16 06:15 01/02/17 06:14 Albuterol/ Ipratropium (DuoNeb 0.5-3(2.5)mg/3ml) 3 ml Q4H PRN HHN Shortness of Breath 12/03/16 06:15 12/08/16 06:14 Aztreonam/Sodium Chloride (Azactam/Sodium Chloride) 55 ml @ 110 mls/hr Q8H IVPB 12/03/16 14:00 12/10/16 13:59 12/04/16 13:05 Carbamazepine (TEGretol XR) 200 mg DAILY ORAL 12/03/16 09:00 01/02/17 08:59 Dextrose (Dextrose 50%) STAT PRN IV Hypoglycemia 12/03/16 13:45 01/02/17 13:44 Heparin Sodium (Porcine) (Heparin 5000 units/ml) 5,000 units EVERY 12 HOURS SUBQ 12/03/16 09:00 01/02/17 08:59 Insulin Aspart (NovoLOG) BEFORE MEALS AND HS SUBQ 12/03/16 16:30 01/02/17 16:29 Metronidazole 500 mg 500 mg Q8HR ORAL 12/03/16 16:30 12/10/16 16:29 12/04/16 14:46 Morphine Sulfate (Morphine Sulfate) 4 mg Q4H PRN IVP Severe Pain (Pain Scale 7-10) 12/03/16 10:45 12/10/16 10:44 12/04/16 14:51 Nitroglycerin (Ntg) 0.4 mg Q5M PRN SL Prn Chest Pain 12/03/16 06:15 01/02/17 06:14 Ondansetron HCl (Zofran) 4 mg Q6H PRN IVP Nausea & Vomiting 12/03/16 06:15 01/02/17 06:14 12/03/16 16:47 Polyethylene Glycol (Miralax) 17 gm DAILYPRN PRN ORAL Constipation 12/03/16 06:15 01/02/17 06:14 Promethazine HCl/ Codeine (Phenergan with Codeine) 5 ml Q4H PRN ORAL For Cough 12/03/16 06:15 01/02/17 06:14 Temazepam 15 mg 15 mg HSPRN PRN ORAL Insomnia 12/03/16 06:15 12/10/16 06:14 Vancomycin HCl (Vanco rx to dose) 1 ea DAILY PRN MISC Per rx protocol 12/03/16 06:15 01/02/17 06:14 Vancomycin HCl/ Dextrose (Vancomycin/D5W) 275 ml @ 183.708 mls/hr Q8H IVPB 12/04/16 16:00 12/09/16 15:59 Josue Kelley M.D. Dec 04, 2016 16:59
[2016-12-04] MEDS ORDERED: Tubing IV Secondary IV ONE (19:46)
[2016-12-04] MEDS ORDERED: NS 275ml ONE (19:46)
--- NOTE | 2016-12-04 23:35 | Pulmonology Progress Note ---
Assessment/Plan Problems: (1) Pneumonia (2) Pleural effusion (3) Amphetamine abuse Assessment/Plan iv antibiotics check cultures tolerating diet Subjective ROS Limited/Unobtainable: No Interval Events: still has chest pain Allergies: Coded Allergies: AMOXICILLIN (Verified Allergy, Mild, 06/28/15) ASPIRIN (Verified Allergy, Mild, 06/28/15) SALICYLATES (Verified Allergy, Mild, 06/28/15) Objective Last 24 Hour Vital Signs Date Time Temp Pulse Resp B/P Pulse Ox O2 Delivery O2 Flow Rate FiO2 12/04/16 23:31 97.5 92 22 122/72 93 Nasal Cannula 3.0 12/04/16 20:17 Nasal Cannula 3.0 32 12/04/16 20:16 94 Nasal Cannula 3.0 32 12/04/16 20:16 90 18 Nasal Cannula 2.0 12/04/16 20:00 98.2 96 18 130/80 94 Nasal Cannula 3.0 12/04/16 18:09 98.2 12/04/16 16:30 100.0 107 20 128/81 93 Nasal Cannula 3.0 12/04/16 12:00 99.8 100 20 130/75 95 Nasal Cannula 3.0 12/04/16 08:01 100.9 101 20 124/79 95 Nasal Cannula 3.0 12/04/16 07:48 106 20 Room Air 12/04/16 07:47 Nasal Cannula 3.0 32 12/04/16 07:47 94 Nasal Cannula 3.0 32 12/04/16 05:52 97.8 12/04/16 04:00 97.8 94 18 121/74 89 Room Air 12/04/16 00:00 97.7 95 18 113/76 85 Room Air Intake and Output 12/03/16 12/04/16 19:00 07:00 Intake Total 850.000 ml 320 ml Balance 850.000 ml 320 ml Intake Oral 520 ml 320 ml IV Total 330.000 ml # Voids 2 3 General Appearance: WD/WN HEENT: normocephalic, atraumatic Respiratory/Chest: chest wall non-tender, lungs clear Breasts: no masses Cardiovascular: normal peripheral pulses Abdomen: normal bowel sounds, soft, non tender Extremities: no cyanosis, no clubbing 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, no motor/sensory deficits Lymphatic: no neck adenopathy Microbiology Date/Time Source Procedure Growth Status 12/02/16 22:50 Blood Blood Culture - Preliminary NO GROWTH AFTER 24 HOURS Resulted 12/02/16 22:35 Blood Blood Culture - Preliminary NO GROWTH AFTER 24 HOURS Resulted Laboratory Tests 12/04/16 05:50: White Blood Count 17.2H, Red Blood Count 4.16L, Hemoglobin 12.7, Hematocrit 36.7L, Mean Corpuscular Volume 88, Mean Corpuscular Hemoglobin 30.5, Mean Corpuscular Hemoglobin Concent 34.6, Red Cell Distribution Width 11.6, Platelet Count 449, Mean Platelet Volume 6.3L, Neutrophils (%) (Auto) 80.4H, Lymphocytes (%) (Auto) 7.3L, Monocytes (%) (Auto) 10.4H, Eosinophils (%) (Auto) 1.5, Basophils (%) (Auto) 0.5, Sodium Level 134L, Potassium Level 4.6, Chloride Level 97L, Carbon Dioxide Level 24, Anion Gap 13, Blood Urea Nitrogen 12, Creatinine 0.6, Estimat Glomerular Filtration Rate > 60, Glucose Level 120H, Calcium Level 8.7, Phosphorus Level 3.3, Albumin 2.9L Current Medications Medications (Trade) Dose Ordered Sig/Ok Route PRN Reason Start Time Stop Time Status Last Admin Dose Admin Acetaminophen (Tylenol) 650 mg Q4H PRN ORAL fever 12/03/16 06:15 01/02/17 06:14 12/04/16 17:10 Al Hydroxide/Mg Hydroxide (Mylanta II) 30 ml Q6H PRN ORAL dyspepsia 12/03/16 06:15 01/02/17 06:14 Albuterol/ Ipratropium (DuoNeb 0.5-3(2.5)mg/3ml) 3 ml Q4H PRN HHN Shortness of Breath 12/03/16 06:15 12/08/16 06:14 Aztreonam/Sodium Chloride (Azactam/Sodium Chloride) 55 ml @ 110 mls/hr Q8H IVPB 12/03/16 14:00 12/10/16 13:59 12/04/16 21:14 Carbamazepine (TEGretol XR) 200 mg DAILY ORAL 12/03/16 09:00 01/02/17 08:59 Dextrose (Dextrose 50%) STAT PRN IV Hypoglycemia 12/03/16 13:45 01/02/17 13:44 Heparin Sodium (Porcine) (Heparin 5000 units/ml) 5,000 units EVERY 12 HOURS SUBQ 12/03/16 09:00 01/02/17 08:59 Insulin Aspart (NovoLOG) BEFORE MEALS AND HS SUBQ 12/03/16 16:30 01/02/17 16:29 12/04/16 17:15 Metronidazole 500 mg 500 mg Q8HR ORAL 12/03/16 16:30 12/10/16 16:29 12/04/16 21:14 Morphine Sulfate (Morphine Sulfate) 4 mg Q4H PRN IVP Severe Pain (Pain Scale 7-10) 12/03/16 10:45 12/10/16 10:44 12/04/16 19:34 Nitroglycerin (Ntg) 0.4 mg Q5M PRN SL Prn Chest Pain 12/03/16 06:15 01/02/17 06:14 Ondansetron HCl (Zofran) 4 mg Q6H PRN IVP Nausea & Vomiting 12/03/16 06:15 01/02/17 06:14 12/04/16 20:19 Polyethylene Glycol (Miralax) 17 gm DAILYPRN PRN ORAL Constipation 12/03/16 06:15 01/02/17 06:14 Promethazine HCl/ Codeine (Phenergan with Codeine) 5 ml Q4H PRN ORAL For Cough 12/03/16 06:15 01/02/17 06:14 Temazepam 15 mg 15 mg HSPRN PRN ORAL Insomnia 12/03/16 06:15 12/10/16 06:14 Vancomycin HCl (Vanco rx to dose) 1 ea DAILY PRN MISC Per rx protocol 12/03/16 06:15 01/02/17 06:14 Vancomycin HCl/ Dextrose (Vancomycin/D5W) 275 ml @ 183.708 mls/hr Q8H IVPB 12/04/16 16:00 12/09/16 15:59 LUIGI RAMÍREZ Dec 04, 2016 23:35
[2016-12-05 04:00] VITALS: BP 130/77
[2016-12-05] MEDS: metroNIDAZOLE 500mg tab ORAL SCH ×3 (05:15→21:25)
[2016-12-05] MEDS: Aztreonam Inj 1 GM in NS 55 ML IVPB SCH ×3 (05:15→21:25)
[2016-12-05] MEDS: Morphine Sulfate 4mg/ml Inj IVP PRN ×5 (05:16→23:27)
[2016-12-05] MEDS: NovoLOG Insulin Flexpen SUBQ SCH ×4 (05:59→21:00)
[2016-12-05 07:02] LABS: ANION GAP 11 (5-15); CALCIUM 8.7 mg/dL (8.6-10.2); CARBON DIOXIDE 29 mEQ/L (20-30); CHLORIDE 93 mEQ/L (98-107); CREATININE 0.6 mg/dL (0.5-0.9); GLOMERULAR FILTRATION RATE > 60 mL/min (>60); HEMOLYSIS 1; POTASSIUM 4.1 mEQ/L (3.4-4.9); SODIUM 133 mEQ/L (135-145)
[2016-12-05 07:05] LABS: MEAN CORPUSCULAR HEMOGLOBIN 30.1 PG (27.0-31.0); MEAN CORPUSCULAR HGB CONC 34.1 G/DL (32.0-36.0); MEAN CORPUSCULAR VOLUME 88 FL (80-99); MEAN PLATELET VOLUME 6.1 FL (6.5-10.1); PLATELET COUNT 471 K/UL (150-450); RED BLOOD COUNT 4.23 M/UL (4.20-5.40); RED CELL DISTRIBUTION WIDTH 11.7 % (11.6-14.8); WHITE BLOOD COUNT 18.6 K/UL (4.8-10.8)
[2016-12-05 08:32] VITALS: BP 121/77
[2016-12-05 08:37] LABS: BAND NEUTROPHILS % (MANUAL) 0 % (0-8); BASOPHILS % (MANUAL) 0 % (0-2); EOSINOPHILS % (MANUAL) 1 % (0-3); LYMPHOCYTES % (MANUAL) 8 % (20-45); NEUTROPHILS % (MANUAL) 79 % (45-75); PLATELET ESTIMATE INCREASED; PLATELET MORPHOLOGY NORMAL; TOTAL CELLS COUNTED 100
[2016-12-05] MEDS: Heparin 5000 units/ml inj SUBQ SCH ×2 (09:00→21:00)
[2016-12-05] MEDS: carBAMazepine XR 200mg tab ORAL SCH (09:00)
[2016-12-05] MEDS: Vancomycin 1250mg in D5W 275ml IVPB SCH ×3 (09:39→23:26)
[2016-12-05 12:47] VITALS: BP 134/77
--- NOTE | 2016-12-05 14:26 | General Progress Note ---
Assessment/Plan Problem List: (1) Sepsis ICD Codes: A41.9 - Sepsis, unspecified organism SNOMED: 84129975, 305153366 Qualifiers: Qualified Codes: A41.9 - Sepsis, unspecified organism (2) Pneumonia ICD Codes: J18.9 - Pneumonia, unspecified organism SNOMED: 467545910 Qualifiers: Qualified Codes: J18.9 - Pneumonia, unspecified organism (3) UTI (urinary tract infection) ICD Codes: N39.0 - Urinary tract infection, site not specified SNOMED: 19289089 (4) Pleural effusion ICD Codes: J90 - Pleural effusion, not elsewhere classified SNOMED: 86277202 Status: stable, progressing, tolerating diet Assessment/Plan o2 pulm tx abx cbc bmp am dc plan Subjective Constitutional: Reports: weakness Allergies: Coded Allergies: AMOXICILLIN (Verified Allergy, Mild, 06/28/15) ASPIRIN (Verified Allergy, Mild, 06/28/15) SALICYLATES (Verified Allergy, Mild, 06/28/15) All Systems: reviewed and negative except above Subjective o2nc sleepy Objective Last 24 Hour Vital Signs Date Time Temp Pulse Resp B/P Pulse Ox O2 Delivery O2 Flow Rate FiO2 12/05/16 12:47 98.2 101 20 134/77 95 Room Air 12/05/16 08:32 99.7 102 21 121/77 95 Room Air 12/05/16 07:52 Nasal Cannula 2.0 28 12/05/16 07:51 93 Nasal Cannula 2.0 28 12/05/16 07:51 102 20 Nasal Cannula 2.0 12/05/16 05:46 97.6 12/05/16 04:00 97.6 102 22 130/77 93 Nasal Cannula 3.0 12/04/16 23:31 97.5 92 22 122/72 93 Nasal Cannula 3.0 12/04/16 20:17 Nasal Cannula 3.0 32 12/04/16 20:16 94 Nasal Cannula 3.0 32 12/04/16 20:16 90 18 Nasal Cannula 2.0 12/04/16 20:00 98.2 96 18 130/80 94 Nasal Cannula 3.0 12/04/16 18:09 98.2 12/04/16 16:30 100.0 107 20 128/81 93 Nasal Cannula 3.0 Intake and Output 12/04/16 12/05/16 19:00 07:00 Intake Total 1135 ml 955.000 ml Balance 1135 ml 955.000 ml Intake Oral 1080 ml 570 ml IV Total 55 ml 385.000 ml # Voids 5 1 # Bowel Movements 1 Laboratory Tests 12/05/16 05:25: White Blood Count 18.6H, Red Blood Count 4.23, Hemoglobin 12.7, Hematocrit 37.3 , Mean Corpuscular Volume 88, Mean Corpuscular Hemoglobin 30.1, Mean Corpuscular Hemoglobin Concent 34.1, Red Cell Distribution Width 11.7, Platelet Count 471H, Mean Platelet Volume 6.1L, Neutrophils (%) (Auto) , Lymphocytes (%) (Auto) , Monocytes (%) (Auto) , Eosinophils (%) (Auto) , Basophils (%) (Auto) , Differential Total Cells Counted 100, Neutrophils % (Manual) 79H, Lymphocytes % (Manual) 8L, Monocytes % (Manual) 12H, Eosinophils % (Manual) 1, Basophils % ( Manual) 0, Band Neutrophils 0, Platelet Estimate IncreasedH, Platelet Morphology Normal, Red Blood Cell Morphology Normal, Sodium Level 133L, Potassium Level 4.1, Chloride Level 93L, Carbon Dioxide Level 29, Anion Gap 11, Blood Urea Nitrogen 10, Creatinine 0.6, Estimat Glomerular Filtration Rate > 60 , Glucose Level 122H, Calcium Level 8.7 Height (Feet): 5 Height (Inches): 6.00 Weight (Pounds): 220 General Appearance: lethargic EENT: normal ENT inspection Neck: normal alignment Cardiovascular: normal peripheral pulses, normal rate, regular rhythm Respiratory/Chest: chest wall non-tender, lungs clear, decreased breath sounds Abdomen: normal bowel sounds, non tender, soft Extremities: normal inspection Edema: no edema noted Arm (L), no edema noted Arm (R), no edema noted Leg (L), no edema noted Leg (R), no edema noted Pedal (L), no edema noted Pedal (R), no edema noted Generalized Neurologic: responsive, motor weakness Skin: normal pigmentation, warm/dry MARIZOL MAGUIRE Dec 05, 2016 14:26
[2016-12-05 16:00] VITALS: BP 135/82
--- NOTE | 2016-12-05 17:55 | Infectious Diseases Prog Note ---
Assessment/Plan Problems: (1) CAP (community acquired pneumonia) Assessment & Plan: continue vancomycin, flagyl and aztreonam empirically, send blood and sputum culture (2) Sepsis Assessment & Plan: due to pneumonia , continue wide spectrum antibiotics , send blood culture (3) Drug abuse Assessment & Plan: will screen for HIV and hepatitis, recommend counseling and rehabilitation (4) UTI (urinary tract infection) Assessment & Plan: continue aztreonam and send culture (5) Pleural effusion Assessment & Plan: needs to rule out empyema, recommend thoracentesis and fluids to be sent for culture , fungal and AFB, and for cytology Subjective Respiratory: Reports: dry cough Cardiovascular: Reports: chest pain Allergies: Coded Allergies: AMOXICILLIN (Verified Allergy, Mild, 06/28/15) ASPIRIN (Verified Allergy, Mild, 06/28/15) SALICYLATES (Verified Allergy, Mild, 06/28/15) All Systems: reviewed and negative except above Objective Vital Signs Last 24 Hour Vital Signs Date Time Temp Pulse Resp B/P Pulse Ox O2 Delivery O2 Flow Rate FiO2 12/05/16 16:00 97.3 111 23 135/82 92 Nasal Cannula 3.0 12/05/16 12:47 98.2 101 20 134/77 95 Room Air 12/05/16 08:32 99.7 102 21 121/77 95 Room Air 12/05/16 07:52 Nasal Cannula 2.0 28 12/05/16 07:51 93 Nasal Cannula 2.0 28 12/05/16 07:51 102 20 Nasal Cannula 2.0 12/05/16 05:46 97.6 12/05/16 04:00 97.6 102 22 130/77 93 Nasal Cannula 3.0 12/04/16 23:31 97.5 92 22 122/72 93 Nasal Cannula 3.0 12/04/16 20:17 Nasal Cannula 3.0 32 12/04/16 20:16 94 Nasal Cannula 3.0 32 12/04/16 20:16 90 18 Nasal Cannula 2.0 12/04/16 20:00 98.2 96 18 130/80 94 Nasal Cannula 3.0 12/04/16 18:09 98.2 Height (Feet): 5 Height (Inches): 6.00 Weight (Pounds): 220 General Appearance: WD/WN, no acute distress HEENT: normocephalic, atraumatic, anicteric, mucous membranes moist Respiratory/Chest: lungs clear, no respiratory distress, no accessory muscle use, decreased breath sounds, crackles/rales Cardiovascular: normal peripheral pulses, normal rate, regular rhythm Abdomen: normal bowel sounds, soft, non tender, no organomegaly, non distended , no mass, no scars Extremities: no cyanosis, no clubbing Skin: no rash, no lesions Microbiology Date/Time Source Procedure Growth Status 12/02/16 22:50 Blood Blood Culture - Preliminary NO GROWTH AFTER 48 HOURS Resulted 12/02/16 22:35 Blood Blood Culture - Preliminary NO GROWTH AFTER 48 HOURS Resulted 12/03/16 05:30 Nasal Nares MRSA Culture - Final NO METHICILLIN RESISTANT STAPH AUREUS... Complete Laboratory Tests Test 12/05/16 05:25 White Blood Count 18.6 K/UL (4.8-10.8) H Red Blood Count 4.23 M/UL (4.20-5.40) Hemoglobin 12.7 G/DL (12.0-16.0) Hematocrit 37.3 % (37.0-47.0) Mean Corpuscular Volume 88 FL (80-99) Mean Corpuscular Hemoglobin 30.1 PG (27.0-31.0) Mean Corpuscular Hemoglobin Concent 34.1 G/DL (32.0-36.0) Red Cell Distribution Width 11.7 % (11.6-14.8) Platelet Count 471 K/UL (150-450) H Mean Platelet Volume 6.1 FL (6.5-10.1) L Neutrophils (%) (Auto) % (45.0-75.0) Lymphocytes (%) (Auto) % (20.0-45.0) Monocytes (%) (Auto) % (1.0-10.0) Eosinophils (%) (Auto) % (0.0-3.0) Basophils (%) (Auto) % (0.0-2.0) Differential Total Cells Counted 100 Neutrophils % (Manual) 79 % (45-75) H Lymphocytes % (Manual) 8 % (20-45) L Monocytes % (Manual) 12 % (1-10) H Eosinophils % (Manual) 1 % (0-3) Basophils % (Manual) 0 % (0-2) Band Neutrophils 0 % (0-8) Platelet Estimate Increased H Platelet Morphology Normal Red Blood Cell Morphology Normal Sodium Level 133 mEQ/L (135-145) L Potassium Level 4.1 mEQ/L (3.4-4.9) Chloride Level 93 mEQ/L (98-107) L Carbon Dioxide Level 29 mEQ/L (20-30) Anion Gap 11 (5-15) Blood Urea Nitrogen 10 mg/dL (7-23) Creatinine 0.6 mg/dL (0.5-0.9) Estimat Glomerular Filtration Rate > 60 mL/min (>60) Glucose Level 122 mg/dL (74-106) H Calcium Level 8.7 mg/dL (8.6-10.2) Current Medications Medications (Trade) Dose Ordered Sig/Ok Route PRN Reason Start Time Stop Time Status Last Admin Dose Admin Acetaminophen (Tylenol) 650 mg Q4H PRN ORAL fever 12/03/16 06:15 01/02/17 06:14 12/04/16 17:10 Al Hydroxide/Mg Hydroxide (Mylanta II) 30 ml Q6H PRN ORAL dyspepsia 12/03/16 06:15 01/02/17 06:14 Albuterol/ Ipratropium (DuoNeb 0.5-3(2.5)mg/3ml) 3 ml Q4H PRN HHN Shortness of Breath 12/03/16 06:15 12/08/16 06:14 Aztreonam/Sodium Chloride (Azactam/Sodium Chloride) 55 ml @ 110 mls/hr Q8H IVPB 12/03/16 14:00 12/10/16 13:59 12/05/16 13:57 Carbamazepine (TEGretol XR) 200 mg DAILY ORAL 12/03/16 09:00 01/02/17 08:59 Dextrose (Dextrose 50%) STAT PRN IV Hypoglycemia 12/03/16 13:45 01/02/17 13:44 Heparin Sodium (Porcine) (Heparin 5000 units/ml) 5,000 units EVERY 12 HOURS SUBQ 12/03/16 09:00 01/02/17 08:59 Insulin Aspart (NovoLOG) BEFORE MEALS AND HS SUBQ 12/03/16 16:30 01/02/17 16:29 12/04/16 17:15 Metronidazole 500 mg 500 mg Q8HR ORAL 12/03/16 16:30 12/10/16 16:29 12/05/16 13:57 Morphine Sulfate (Morphine Sulfate) 4 mg Q4H PRN IVP Severe Pain (Pain Scale 7-10) 12/03/16 10:45 12/10/16 10:44 12/05/16 13:57 Nitroglycerin (Ntg) 0.4 mg Q5M PRN SL Prn Chest Pain 12/03/16 06:15 01/02/17 06:14 Ondansetron HCl (Zofran) 4 mg Q6H PRN IVP Nausea & Vomiting 12/03/16 06:15 01/02/17 06:14 12/04/16 20:19 Polyethylene Glycol (Miralax) 17 gm DAILYPRN PRN ORAL Constipation 12/03/16 06:15 01/02/17 06:14 Promethazine HCl/ Codeine (Phenergan with Codeine) 5 ml Q4H PRN ORAL For Cough 12/03/16 06:15 01/02/17 06:14 Temazepam 15 mg 15 mg HSPRN PRN ORAL Insomnia 12/03/16 06:15 12/10/16 06:14 Vancomycin HCl (Vanco rx to dose) 1 ea DAILY PRN MISC Per rx protocol 12/03/16 06:15 01/02/17 06:14 Vancomycin HCl/ Dextrose (Vancomycin/D5W) 275 ml @ 183.708 mls/hr Q8H IVPB 12/04/16 16:00 12/09/16 15:59 12/05/16 17:00 Josue Kelley M.D. Dec 05, 2016 17:55
[2016-12-05 20:00] VITALS: BP 145/93
--- NOTE | 2016-12-05 21:58 | Pulmonology Progress Note ---
Assessment/Plan Problems: (1) Pneumonia (2) Pleural effusion (3) Amphetamine abuse Assessment/Plan thoracentesis IV antibioitcs cultures were negative. Subjective ROS Limited/Unobtainable: No Constitutional: Reports: no symptoms HEENT: Repors: no symptoms Allergies: Coded Allergies: AMOXICILLIN (Verified Allergy, Mild, 06/28/15) ASPIRIN (Verified Allergy, Mild, 06/28/15) SALICYLATES (Verified Allergy, Mild, 06/28/15) Objective Last 24 Hour Vital Signs Date Time Temp Pulse Resp B/P Pulse Ox O2 Delivery O2 Flow Rate FiO2 12/05/16 19:50 Nasal Cannula 4.0 36 12/05/16 19:50 104 20 Nasal Cannula 2.0 12/05/16 19:50 94 Nasal Cannula 4.0 36 12/05/16 16:00 97.3 111 23 135/82 92 Nasal Cannula 3.0 12/05/16 12:47 98.2 101 20 134/77 95 Room Air 12/05/16 08:32 99.7 102 21 121/77 95 Room Air 12/05/16 07:52 Nasal Cannula 2.0 28 12/05/16 07:51 93 Nasal Cannula 2.0 28 12/05/16 07:51 102 20 Nasal Cannula 2.0 12/05/16 05:46 97.6 12/05/16 04:00 97.6 102 22 130/77 93 Nasal Cannula 3.0 12/04/16 23:31 97.5 92 22 122/72 93 Nasal Cannula 3.0 Intake and Output 12/04/16 12/05/16 19:00 07:00 Intake Total 1135 ml 955.000 ml Balance 1135 ml 955.000 ml Intake Oral 1080 ml 570 ml IV Total 55 ml 385.000 ml # Voids 5 1 # Bowel Movements 1 General Appearance: WD/WN HEENT: normocephalic Respiratory/Chest: chest wall non-tender, lungs clear Abdomen: normal bowel sounds Skin: no lesions 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 Complete Laboratory Tests 12/05/16 05:25: White Blood Count 18.6H, Red Blood Count 4.23, Hemoglobin 12.7, Hematocrit 37.3 , Mean Corpuscular Volume 88, Mean Corpuscular Hemoglobin 30.1, Mean Corpuscular Hemoglobin Concent 34.1, Red Cell Distribution Width 11.7, Platelet Count 471H, Mean Platelet Volume 6.1L, Neutrophils (%) (Auto) , Lymphocytes (%) (Auto) , Monocytes (%) (Auto) , Eosinophils (%) (Auto) , Basophils (%) (Auto) , Differential Total Cells Counted 100, Neutrophils % (Manual) 79H, Lymphocytes % (Manual) 8L, Monocytes % (Manual) 12H, Eosinophils % (Manual) 1, Basophils % ( Manual) 0, Band Neutrophils 0, Platelet Estimate IncreasedH, Platelet Morphology Normal, Red Blood Cell Morphology Normal, Sodium Level 133L, Potassium Level 4.1, Chloride Level 93L, Carbon Dioxide Level 29, Anion Gap 11, Blood Urea Nitrogen 10, Creatinine 0.6, Estimat Glomerular Filtration Rate > 60 , Glucose Level 122H, Calcium Level 8.7 Current Medications Medications (Trade) Dose Ordered Sig/Ok Route PRN Reason Start Time Stop Time Status Last Admin Dose Admin Acetaminophen (Tylenol) 650 mg Q4H PRN ORAL fever 12/03/16 06:15 01/02/17 06:14 12/04/16 17:10 Al Hydroxide/Mg Hydroxide (Mylanta II) 30 ml Q6H PRN ORAL dyspepsia 12/03/16 06:15 01/02/17 06:14 Albuterol/ Ipratropium (DuoNeb 0.5-3(2.5)mg/3ml) 3 ml Q4H PRN HHN Shortness of Breath 12/03/16 06:15 12/08/16 06:14 Aztreonam/Sodium Chloride (Azactam/Sodium Chloride) 55 ml @ 110 mls/hr Q8H IVPB 12/03/16 14:00 12/10/16 13:59 12/05/16 21:25 Carbamazepine (TEGretol XR) 200 mg DAILY ORAL 12/03/16 09:00 01/02/17 08:59 Dextrose (Dextrose 50%) STAT PRN IV Hypoglycemia 12/03/16 13:45 01/02/17 13:44 Heparin Sodium (Porcine) (Heparin 5000 units/ml) 5,000 units EVERY 12 HOURS SUBQ 12/03/16 09:00 01/02/17 08:59 Insulin Aspart (NovoLOG) BEFORE MEALS AND HS SUBQ 12/03/16 16:30 01/02/17 16:29 12/04/16 17:15 Lidocaine (Lidoderm 5% PATCH) 1 patch Q24H TDERMAL 12/05/16 21:00 01/04/17 20:59 12/05/16 21:28 Metronidazole 500 mg 500 mg Q8HR ORAL 12/03/16 16:30 12/10/16 16:29 12/05/16 21:25 Morphine Sulfate (Morphine Sulfate) 6 mg Q4H PRN IVP Severe Pain (Pain Scale 7-10) 12/05/16 23:00 12/12/16 22:59 Nitroglycerin (Ntg) 0.4 mg Q5M PRN SL Prn Chest Pain 12/03/16 06:15 01/02/17 06:14 Ondansetron HCl (Zofran) 4 mg Q6H PRN IVP Nausea & Vomiting 12/03/16 06:15 01/02/17 06:14 12/05/16 18:59 Polyethylene Glycol (Miralax) 17 gm DAILYPRN PRN ORAL Constipation 12/03/16 06:15 01/02/17 06:14 Promethazine HCl/ Codeine (Phenergan with Codeine) 5 ml Q4H PRN ORAL For Cough 12/03/16 06:15 01/02/17 06:14 Temazepam 15 mg 15 mg HSPRN PRN ORAL Insomnia 12/03/16 06:15 12/10/16 06:14 Vancomycin HCl (Vanco rx to dose) 1 ea DAILY PRN MISC Per rx protocol 12/03/16 06:15 01/02/17 06:14 Vancomycin HCl/ Dextrose (Vancomycin/D5W) 275 ml @ 183.708 mls/hr Q8H IVPB 12/04/16 16:00 12/09/16 15:59 12/05/16 17:00 LUIGI RAMÍREZ Dec 05, 2016 21:58
[2016-12-06] VITALS: BP 138/94
[2016-12-06 04:00] VITALS: BP 130/86
[2016-12-06] MEDS: Aztreonam Inj 1 GM in NS 55 ML IVPB SCH ×3 (05:11→22:14)
[2016-12-06] MEDS: metroNIDAZOLE 500mg tab ORAL SCH ×3 (05:11→22:14)
[2016-12-06] MEDS: Morphine Sulfate 4mg/ml Inj IVP PRN (05:12)
[2016-12-06] MEDS: NovoLOG Insulin Flexpen SUBQ SCH ×4 (06:04→21:00)
[2016-12-06 07:18] LABS: MEAN CORPUSCULAR HEMOGLOBIN 29.6 PG (27.0-31.0); MEAN CORPUSCULAR HGB CONC 33.7 G/DL (32.0-36.0); MEAN CORPUSCULAR VOLUME 88 FL (80-99); MEAN PLATELET VOLUME 6.2 FL (6.5-10.1); PLATELET COUNT 484 K/UL (150-450); RED BLOOD COUNT 4.26 M/UL (4.20-5.40); RED CELL DISTRIBUTION WIDTH 11.8 % (11.6-14.8); WHITE BLOOD COUNT 19.5 K/UL (4.8-10.8)
[2016-12-06 07:28] LABS: ANION GAP 13 (5-15); CALCIUM 8.7 mg/dL (8.6-10.2); CARBON DIOXIDE 30 mEQ/L (20-30); CHLORIDE 90 mEQ/L (98-107); CREATININE 0.6 mg/dL (0.5-0.9); GLOMERULAR FILTRATION RATE > 60 mL/min (>60); HEMOLYSIS 3; POTASSIUM 4.1 mEQ/L (3.4-4.9); SODIUM 133 mEQ/L (135-145)
[2016-12-06] MEDS: Heparin 5000 units/ml inj SUBQ SCH ×2 (08:08→21:00)
[2016-12-06 08:26] VITALS: BP 116/76
[2016-12-06] MEDS: carBAMazepine XR 200mg tab ORAL SCH (09:00)
[2016-12-06] MEDS: Lyrica 75mg cap ORAL SCH ×3 (09:05→17:03)
[2016-12-06] MEDS: Vancomycin 1250mg in D5W 275ml IVPB SCH ×2 (09:13→17:04)
--- NOTE | 2016-12-06 09:48 | Consultation ---
History of Present Illness General Date patient seen: Dec 06, 2016 Chief Complaint: Chest Pain Reason for Consultation: pneumonia Present Illness Allergies: Coded Allergies: AMOXICILLIN (Verified Allergy, Mild, 06/28/15) ASPIRIN (Verified Allergy, Mild, 06/28/15) SALICYLATES (Verified Allergy, Mild, 06/28/15) Medication History Scheduled Carbamazepine (Tegretol Xr), 200 MG ORAL 5 TIMES PER DAY, (Reported) Cyclobenzaprine Hcl* (Flexeril*), 10 MG ORAL THREE TIMES A DAY, (Reported) Ferrous Sulfate* (Ferrous Sulfate*), 325 MG ORAL TWICE A DAY, (Reported) Gabapentin* (Gabapentin*), 600 MG ORAL THREE TIMES A DAY, (Reported) Hydromorphone HCl (Dilaudid), 2 MG ORAL Q4H, (Reported) Ibuprofen* (Motrin*), 600 MG ORAL THREE TIMES A DAY, (Reported) Meloxicam* (Meloxicam*), 7.5 MG PO DAILY, (Reported) Omeprazole Magnesium (Prilosec Otc), 20 MG ORAL DAILY, (Reported) Scheduled PRN Acetaminophen* (Tylenol Extra Strength*), 500 MG ORAL Q6H PRN for Mild Pain/ Temp > 100.5, (Reported) Albuterol Sulfate* (Albuterol Sulfate Hhn*), 3 ML INH Q6H PRN for Shortness of Breath, (Reported) Diphenhydramine HCl (Diphenhydramine HCl), 50 MG ORAL HS PRN for Itching, ( Reported) Ondansetron Odt* (Zofran Odt*), 4 MG ORAL Q8H PRN for Nausea & Vomiting Discontinued Medications Gabapentin* (Gabapentin*), 300 MG ORAL THREE TIMES A DAY, (Reported) Discontinued Reason: Medication dose changed Hydrocodone Bit/Acetaminophen 5-325* ([place] 5-325*), 1 TAB ORAL Q6H PRN for For Pain Discontinued Reason: Pt stopped taking med Ibuprofen* (Motrin Ib*), 200 MG ORAL Q6H, (Reported) Discontinued Reason: Medication dose changed Tramadol Hcl* (Ultram*), 50 MG ORAL Q6H PRN for For Pain, (Reported) Discontinued Reason: Pt stopped taking med Tramadol Hcl* (Ultram*), 50 MG ORAL Q6H PRN for For Pain Discontinued Reason: Pt stopped taking med Venlafaxine Hcl* (Effexor*), 100 MG ORAL THREE TIMES A DAY, (Reported) Discontinued Reason: Pt stopped taking med Patient History Healthcare decision maker Resuscitation status Full Code Advanced Directive on File Physical Exam Last 24 Hour Vital Signs Date Time Temp Pulse Resp B/P Pulse Ox O2 Delivery O2 Flow Rate FiO2 12/06/16 08:26 98.8 96 21 116/76 97 Room Air 12/06/16 05:42 98.3 12/06/16 04:00 98.3 100 20 130/86 Nasal Cannula 2.0 12/06/16 00:00 98.2 108 22 138/94 95 Nasal Cannula 2.0 12/05/16 19:50 Nasal Cannula 4.0 36 12/05/16 19:50 104 20 Nasal Cannula 2.0 12/05/16 19:50 94 Nasal Cannula 4.0 36 12/05/16 16:00 97.3 111 23 135/82 92 Nasal Cannula 3.0 12/05/16 12:47 98.2 101 20 134/77 95 Room Air Intake and Output 12/05/16 12/06/16 19:00 07:00 Intake Total 569.908 ml 905.000 ml Balance 569.908 ml 905.000 ml Intake Oral 240 ml 575 ml IV Total 329.908 ml 330.000 ml # Voids 3 Laboratory Tests Test 12/06/16 06:50 White Blood Count 19.5 K/UL (4.8-10.8) H Red Blood Count 4.26 M/UL (4.20-5.40) Hemoglobin 12.6 G/DL (12.0-16.0) Hematocrit 37.4 % (37.0-47.0) Mean Corpuscular Volume 88 FL (80-99) Mean Corpuscular Hemoglobin 29.6 PG (27.0-31.0) Mean Corpuscular Hemoglobin Concent 33.7 G/DL (32.0-36.0) Red Cell Distribution Width 11.8 % (11.6-14.8) Platelet Count 484 K/UL (150-450) H Mean Platelet Volume 6.2 FL (6.5-10.1) L Neutrophils (%) (Auto) % (45.0-75.0) Lymphocytes (%) (Auto) % (20.0-45.0) Monocytes (%) (Auto) % (1.0-10.0) Eosinophils (%) (Auto) % (0.0-3.0) Basophils (%) (Auto) % (0.0-2.0) Neutrophils % (Manual) Pending Lymphocytes % (Manual) Pending Platelet Estimate Pending Platelet Morphology Pending Sodium Level 133 mEQ/L (135-145) L Potassium Level 4.1 mEQ/L (3.4-4.9) Chloride Level 90 mEQ/L (98-107) L Carbon Dioxide Level 30 mEQ/L (20-30) Anion Gap 13 (5-15) Blood Urea Nitrogen 9 mg/dL (7-23) Creatinine 0.6 mg/dL (0.5-0.9) Estimat Glomerular Filtration Rate > 60 mL/min (>60) Glucose Level 123 mg/dL (74-106) H Calcium Level 8.7 mg/dL (8.6-10.2) Vancomycin Level Trough 13.4 ug/mL (5.0-12.0) H Height (Feet): 5 Height (Inches): 6.00 Weight (Pounds): 220 Medications Current Medications Medications (Trade) Dose Ordered Sig/Ok Route PRN Reason Start Time Stop Time Status Last Admin Dose Admin Acetaminophen (Tylenol) 650 mg Q4H PRN ORAL fever 12/03/16 06:15 01/02/17 06:14 12/04/16 17:10 Al Hydroxide/Mg Hydroxide (Mylanta II) 30 ml Q6H PRN ORAL dyspepsia 12/03/16 06:15 01/02/17 06:14 Albuterol/ Ipratropium (DuoNeb 0.5-3(2.5)mg/3ml) 3 ml Q4H PRN HHN Shortness of Breath 12/03/16 06:15 12/08/16 06:14 Aztreonam/Sodium Chloride (Azactam/Sodium Chloride) 55 ml @ 110 mls/hr Q8H IVPB 12/03/16 14:00 12/10/16 13:59 12/06/16 05:11 Carbamazepine (TEGretol XR) 200 mg DAILY ORAL 12/03/16 09:00 01/02/17 08:59 Dextrose (Dextrose 50%) STAT PRN IV Hypoglycemia 12/03/16 13:45 01/02/17 13:44 Heparin Sodium (Porcine) (Heparin 5000 units/ml) 5,000 units EVERY 12 HOURS SUBQ 12/03/16 09:00 01/02/17 08:59 Hydromorphone HCl (Dilaudid) 1.5 mg Q4H PRN IVP severe pain 12/06/16 08:45 12/13/16 08:44 12/06/16 09:06 Insulin Aspart (NovoLOG) BEFORE MEALS AND HS SUBQ 12/03/16 16:30 01/02/17 16:29 12/04/16 17:15 Lidocaine (Lidoderm 5% PATCH) 1 patch Q24H TDERMAL 12/05/16 21:00 01/04/17 20:59 12/05/16 21:28 Metronidazole 500 mg 500 mg Q8HR ORAL 12/03/16 16:30 12/10/16 16:29 12/06/16 05:11 Nitroglycerin (Ntg) 0.4 mg Q5M PRN SL Prn Chest Pain 12/03/16 06:15 01/02/17 06:14 Ondansetron HCl (Zofran) 4 mg Q6H PRN IVP Nausea & Vomiting 12/03/16 06:15 01/02/17 06:14 12/05/16 18:59 Oxycodone/ Acetaminophen (Percocet 10/325) 1 tab Q6H PRN ORAL moderate pain 12/06/16 08:30 12/13/16 08:29 Polyethylene Glycol (Miralax) 17 gm DAILYPRN PRN ORAL Constipation 12/03/16 06:15 01/02/17 06:14 Pregabalin (Lyrica) 150 mg THREE TIMES A DAY ORAL 12/06/16 09:00 01/05/17 08:59 12/06/16 09:05 Promethazine HCl/ Codeine (Phenergan with Codeine) 5 ml Q4H PRN ORAL For Cough 12/03/16 06:15 01/02/17 06:14 Temazepam 15 mg 15 mg HSPRN PRN ORAL Insomnia 12/03/16 06:15 12/10/16 06:14 Vancomycin HCl (Vanco rx to dose) 1 ea DAILY PRN MISC Per rx protocol 12/03/16 06:15 01/02/17 06:14 Vancomycin HCl/ Dextrose (Vancomycin/D5W) 275 ml @ 183.708 mls/hr Q8H IVPB 12/04/16 16:00 12/09/16 15:59 12/06/16 09:13 Assessment/Plan Assessment/Plan (1) Polysubstance abuse (2) Chest wall pain due to pneumonia and pleural effusion (3) Lumbar DDD (4) Lumbar Spondylosis (5) Lumbar Radiculopathy seen dictated HARSH SCOTT Dec 06, 2016 09:48
[2016-12-06 10:00] LABS: BAND NEUTROPHILS % (MANUAL) 1 % (0-8); BASOPHILS % (MANUAL) 0 % (0-2); EOSINOPHILS % (MANUAL) 0 % (0-3); HYPOCHROMASIA 1+; LYMPHOCYTES % (MANUAL) 5 % (20-45); NEUTROPHILS % (MANUAL) 83 % (45-75); PLATELET ESTIMATE ADEQUATE; PLATELET MORPHOLOGY NORMAL; TOTAL CELLS COUNTED 100
--- NOTE | 2016-12-06 12:54 | General Progress Note ---
Assessment/Plan Problem List: (1) Sepsis ICD Codes: A41.9 - Sepsis, unspecified organism SNOMED: 97662193, 316908032 Qualifiers: Qualified Codes: A41.9 - Sepsis, unspecified organism (2) Pneumonia ICD Codes: J18.9 - Pneumonia, unspecified organism SNOMED: 782765272 Qualifiers: Qualified Codes: J18.9 - Pneumonia, unspecified organism (3) UTI (urinary tract infection) ICD Codes: N39.0 - Urinary tract infection, site not specified SNOMED: 42345068 (4) Pleural effusion ICD Codes: J90 - Pleural effusion, not elsewhere classified SNOMED: 41954891 Status: stable, progressing, tolerating diet Assessment/Plan o2 pulm tx abx cbc bmp am dc plan Subjective Constitutional: Reports: weakness Respiratory: Reports: shortness of breath Allergies: Coded Allergies: AMOXICILLIN (Verified Allergy, Mild, 06/28/15) ASPIRIN (Verified Allergy, Mild, 06/28/15) SALICYLATES (Verified Allergy, Mild, 06/28/15) All Systems: reviewed and negative except above Subjective o2nc sleepy awaiting thorocentesis Objective Last 24 Hour Vital Signs Date Time Temp Pulse Resp B/P Pulse Ox O2 Delivery O2 Flow Rate FiO2 12/06/16 09:36 98.8 12/06/16 09:36 98.8 12/06/16 08:26 98.8 96 21 116/76 97 Room Air 12/06/16 05:42 98.3 12/06/16 04:00 98.3 100 20 130/86 Nasal Cannula 2.0 12/06/16 00:00 98.2 108 22 138/94 95 Nasal Cannula 2.0 12/05/16 19:50 Nasal Cannula 4.0 36 12/05/16 19:50 104 20 Nasal Cannula 2.0 12/05/16 19:50 94 Nasal Cannula 4.0 36 12/05/16 16:00 97.3 111 23 135/82 92 Nasal Cannula 3.0 Intake and Output 12/05/16 12/06/16 18:59 06:59 Intake Total 569.908 ml 905.000 ml Balance 569.908 ml 905.000 ml Intake Oral 240 ml 575 ml IV Total 329.908 ml 330.000 ml # Voids 3 Laboratory Tests 12/06/16 06:50: White Blood Count 19.5H, Red Blood Count 4.26, Hemoglobin 12.6, Hematocrit 37.4 , Mean Corpuscular Volume 88, Mean Corpuscular Hemoglobin 29.6, Mean Corpuscular Hemoglobin Concent 33.7, Red Cell Distribution Width 11.8, Platelet Count 484H, Mean Platelet Volume 6.2L, Neutrophils (%) (Auto) , Lymphocytes (%) (Auto) , Monocytes (%) (Auto) , Eosinophils (%) (Auto) , Basophils (%) (Auto) , Differential Total Cells Counted 100, Neutrophils % (Manual) 83H, Lymphocytes % (Manual) 5L, Monocytes % (Manual) 11H, Eosinophils % (Manual) 0, Basophils % ( Manual) 0, Band Neutrophils 1, Platelet Estimate Adequate, Platelet Morphology Normal, Hypochromasia 1+, Sodium Level 133L, Potassium Level 4.1, Chloride Level 90L, Carbon Dioxide Level 30, Anion Gap 13, Blood Urea Nitrogen 9, Creatinine 0.6, Estimat Glomerular Filtration Rate > 60, Glucose Level 123H, Calcium Level 8.7, Vancomycin Level Trough 13.4H Height (Feet): 5 Height (Inches): 6.00 Weight (Pounds): 220 General Appearance: lethargic EENT: normal ENT inspection Neck: normal alignment Cardiovascular: normal peripheral pulses, normal rate, regular rhythm Respiratory/Chest: chest wall non-tender, lungs clear, decreased breath sounds Abdomen: normal bowel sounds, non tender, soft Extremities: normal inspection Edema: no edema noted Arm (L), no edema noted Arm (R), no edema noted Leg (L), no edema noted Leg (R), no edema noted Pedal (L), no edema noted Pedal (R), no edema noted Generalized Skin: normal pigmentation, warm/dry MARIZOL MAGUIRE Dec 06, 2016 12:54
--- NOTE | 2016-12-06 12:59 | Diagnostic Imaging Report ---
ndication: Chest Technique: IV administration nonionic contrast. Spiral acquisitions obtained from the lung bases to the lung apices. Multiplanar and 3-D reconstructions were generated. Total dose length product 1566 mGycm. CTDIvol(s) 12, 88, 42 mGy Comparison: None Findings: There is image degradation due to motion artifact. This precludes confident exclusion of lower lobe pulmonary embolus on either side. There are no gross large vessel central pulmonary emboli no evidence of upper lobe pulmonary emboli. Pulmonary arterial opacification is adequate. The main pulmonary artery is ectatic, measures 3.6 cm diameter. No evidence of right ventricular dilatation. The heart size is upper limits of normal The lungs demonstrate consolidation and atelectasis of much of the left lower lobe. There is a moderate-sized left-sided pleural effusion. Some atelectasis is seen in the inferior lingula. Some atelectatic changes are seen in the medial right lower lobe. There is a moderate to large sliding-type hiatal hernia. There is some wall thickening of the distal esophagus. No mediastinal or hilar Nasser adenopathy. There is a low-attenuation posterior right lobe thyroid nodule which measures 3.1 x 1.8 cm. No axillary or chest wall mass or adenopathy. The included upper abdominal anatomy is unremarkable Impression: Limited evaluation for pulmonary emboli, due to motion artifact. No gross large vessel central pulmonary embolus demonstrated ectatic main pulmonary artery, could indicate pulmonary tear hypertension Consolidation and atelectasis of most of the left lower lobe. Moderate size left-sided pleural effusion Parenchymal atelectatic changes elsewhere, as described Moderate to large sliding-type hiatal hernia. Associated distal esophageal wall thickening, could indicate esophagitis. Neoplasm less likely but also possible 3.1 x 1.8 cm posterior right lobe thyroid nodule. Further evaluation with thyroid ultrasound is recommended This agrees with the preliminary interpretation provided overnight by [facility]. The CT scanner at [facility] is accredited by the [employer] and the scans are performed using protocols designed to limit radiation exposure to as low as reasonably achievable to attain images of sufficient resolution adequate for diagnostic evaluation.
[2016-12-06 13:00] VITALS: BP 118/73
--- NOTE | 2016-12-06 14:04 | Diagnostic Imaging Report ---
Indications: Status post left thoracentesis Technique: Portable AP chest Findings: Comparison: 12/02/16 There has been marked increase in volume of left pleural effusion. Left mid and lower lung zones obscured. Linear densities and aerated portions of left upper lung. No pneumothorax. Right lung and pleura remain clear. Cardiac silhouette partially obscured. Pulmonary vasculature within normal limits. IMPRESSION: Marked increase in volume of left pleural effusion despite thoracentesis, since previous exam; no pneumothorax Underlying left mid and lower lung base pathology not excludable Subsegmental atelectasis left upper lung
--- NOTE | 2016-12-06 14:05 | Diagnostic Imaging Report ---
Indications: Shortness of breath, pleural effusion Technique: Procedure, indications, risks and alternatives were explained to the patient who understands and gives consent to proceed. The left pleural space was surveyed sonographically. The skin over the posterior aspect of the left hemithorax was sterilely prepped and draped in usual fashion. Skin and subcutaneous soft tissues were infiltrated with 1% lidocaine and sodium bicarbonate. A small dermatotomy was made, through which an 8 Estonian thoracentesis catheter was advanced under direct sonographic guidance into the left pleural space. Pleural fluid was maximally drained via vacuum apparatus.. Followup imaging was performed. Catheter was removed. Dermatotomy site was manually compressed to achieve stasis, then cleansed and bandaged. Patient tolerated the procedure well without immediate complications. Fluid was sent to laboratory and pathology for analysis, as ordered. Findings: Initial imaging demonstrates a large amount of fluid within the left pleural space with multiple loculations. Post procedure imaging demonstrates decrease in volume of of left pleural fluid with significant residual. Thoracentesis yields 800 cc of 3 fluid. IMPRESSION: Ultrasound-guided left thoracentesis yielding 800 cc of of pleural fluid , laboratory and pathology results pending. Multiloculation of left pleural effusion with incomplete drainage Followup chest radiograph pending.
[2016-12-06 16:00] VITALS: BP 124/74
--- NOTE | 2016-12-06 17:04 | Pulmonology Progress Note ---
Assessment/Plan Problems: (1) Pneumonia (2) Pleural effusion (3) Amphetamine abuse Assessment/Plan pt had thoracentesis, 800 cc removed. cxr today is worse than yesterday, with increasing amoutn of fluid I called thoracic to see her Subjective ROS Limited/Unobtainable: No Constitutional: Reports: no symptoms HEENT: Repors: no symptoms Respiratory: Reports: no symptoms Cardiovascular: Reports: no symptoms Allergies: Coded Allergies: AMOXICILLIN (Verified Allergy, Mild, 06/28/15) ASPIRIN (Verified Allergy, Mild, 06/28/15) SALICYLATES (Verified Allergy, Mild, 06/28/15) Objective Last 24 Hour Vital Signs Date Time Temp Pulse Resp B/P Pulse Ox O2 Delivery O2 Flow Rate FiO2 12/06/16 16:00 98.3 95 21 124/74 98 Nasal Cannula 2.5 12/06/16 14:46 98.0 12/06/16 14:46 98.0 12/06/16 13:00 98.0 90 19 118/73 98 Room Air 12/06/16 08:26 98.8 96 21 116/76 97 Room Air 12/06/16 06:50 94 18 Nasal Cannula 2.0 12/06/16 06:49 96 Nasal Cannula 2.0 12/06/16 06:48 Nasal Cannula 2.0 12/06/16 05:42 98.3 12/06/16 04:00 98.3 100 20 130/86 Nasal Cannula 2.0 12/06/16 00:00 98.2 108 22 138/94 95 Nasal Cannula 2.0 12/05/16 19:50 Nasal Cannula 4.0 36 12/05/16 19:50 104 20 Nasal Cannula 2.0 12/05/16 19:50 94 Nasal Cannula 4.0 36 Intake and Output 12/05/16 12/06/16 19:00 07:00 Intake Total 569.908 ml 905.000 ml Balance 569.908 ml 905.000 ml Intake Oral 240 ml 575 ml IV Total 329.908 ml 330.000 ml # Voids 3 Respiratory/Chest: chest wall non-tender, lungs clear Breasts: no masses Cardiovascular: normal peripheral pulses, normal rate Abdomen: normal bowel sounds, soft, non tender Genitourinary: normal external genitalia Extremities: no clubbing 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 normal, no motor/sensory deficits Laboratory Tests 12/06/16 06:50: White Blood Count 19.5H, Red Blood Count 4.26, Hemoglobin 12.6, Hematocrit 37.4 , Mean Corpuscular Volume 88, Mean Corpuscular Hemoglobin 29.6, Mean Corpuscular Hemoglobin Concent 33.7, Red Cell Distribution Width 11.8, Platelet Count 484H, Mean Platelet Volume 6.2L, Neutrophils (%) (Auto) , Lymphocytes (%) (Auto) , Monocytes (%) (Auto) , Eosinophils (%) (Auto) , Basophils (%) (Auto) , Differential Total Cells Counted 100, Neutrophils % (Manual) 83H, Lymphocytes % (Manual) 5L, Monocytes % (Manual) 11H, Eosinophils % (Manual) 0, Basophils % ( Manual) 0, Band Neutrophils 1, Platelet Estimate Adequate, Platelet Morphology Normal, Hypochromasia 1+, Sodium Level 133L, Potassium Level 4.1, Chloride Level 90L, Carbon Dioxide Level 30, Anion Gap 13, Blood Urea Nitrogen 9, Creatinine 0.6, Estimat Glomerular Filtration Rate > 60, Glucose Level 123H, Calcium Level 8.7, Vancomycin Level Trough 13.4H Current Medications Medications (Trade) Dose Ordered Sig/Ok Route PRN Reason Start Time Stop Time Status Last Admin Dose Admin Acetaminophen (Tylenol) 650 mg Q4H PRN ORAL fever 12/03/16 06:15 01/02/17 06:14 12/04/16 17:10 Al Hydroxide/Mg Hydroxide (Mylanta II) 30 ml Q6H PRN ORAL dyspepsia 12/03/16 06:15 01/02/17 06:14 Albuterol/ Ipratropium (DuoNeb 0.5-3(2.5)mg/3ml) 3 ml Q4H PRN HHN Shortness of Breath 12/03/16 06:15 12/08/16 06:14 Aztreonam/Sodium Chloride (Azactam/Sodium Chloride) 55 ml @ 110 mls/hr Q8H IVPB 12/03/16 14:00 12/10/16 13:59 12/06/16 14:06 Carbamazepine (TEGretol XR) 200 mg DAILY ORAL 12/03/16 09:00 01/02/17 08:59 Dextrose (Dextrose 50%) STAT PRN IV Hypoglycemia 12/03/16 13:45 01/02/17 13:44 Heparin Sodium (Porcine) (Heparin 5000 units/ml) 5,000 units EVERY 12 HOURS SUBQ 12/03/16 09:00 01/02/17 08:59 Hydromorphone HCl (Dilaudid) 1.5 mg Q4H PRN IVP severe pain 12/06/16 08:45 12/13/16 08:44 12/06/16 14:16 Insulin Aspart (NovoLOG) BEFORE MEALS AND HS SUBQ 12/03/16 16:30 01/02/17 16:29 12/04/16 17:15 Lidocaine (Lidoderm 5% PATCH) 1 patch Q24H TDERMAL 12/05/16 21:00 01/04/17 20:59 12/05/16 21:28 Metronidazole 500 mg 500 mg Q8HR ORAL 12/03/16 16:30 12/10/16 16:29 12/06/16 14:06 Nitroglycerin (Ntg) 0.4 mg Q5M PRN SL Prn Chest Pain 12/03/16 06:15 01/02/17 06:14 Ondansetron HCl (Zofran) 4 mg Q6H PRN IVP Nausea & Vomiting 12/03/16 06:15 01/02/17 06:14 12/05/16 18:59 Oxycodone/ Acetaminophen (Percocet 10/325) 1 tab Q6H PRN ORAL moderate pain 12/06/16 08:30 12/13/16 08:29 Polyethylene Glycol (Miralax) 17 gm DAILYPRN PRN ORAL Constipation 12/03/16 06:15 01/02/17 06:14 Pregabalin (Lyrica) 150 mg THREE TIMES A DAY ORAL 12/06/16 09:00 01/05/17 08:59 12/06/16 14:03 Promethazine HCl/ Codeine (Phenergan with Codeine) 5 ml Q4H PRN ORAL For Cough 12/03/16 06:15 01/02/17 06:14 Temazepam 15 mg 15 mg HSPRN PRN ORAL Insomnia 12/03/16 06:15 12/10/16 06:14 Vancomycin HCl (Vanco rx to dose) 1 ea DAILY PRN MISC Per rx protocol 12/03/16 06:15 3/1/17 06:14 Vancomycin HCl/ Dextrose (Vancomycin/D5W) 275 ml @ 183.708 mls/hr Q8H IVPB 12/04/16 16:00 12/09/16 15:59 12/06/16 09:13 LUIGI RAMÍREZ Dec 06, 2016 17:04
[2016-12-06 20:00] VITALS: BP 119/69
--- NOTE | 2016-12-06 20:20 | Infectious Diseases Prog Note ---
Assessment/Plan Problems: (1) Pleural effusion Assessment & Plan: loculated, S/P thoracentesis , await fluids culture to rule out empyema, recommend thoracic surgery evaluation for possible decortication (2) CAP (community acquired pneumonia) Assessment & Plan: complicated with loculated pleural effusion , S/P thoracentesis , continue vancomycin, flagyl and aztreonam empirically, await blood and sputum culture (3) UTI (urinary tract infection) Assessment & Plan: continue aztreonam , await culture (4) Sepsis Assessment & Plan: due to pneumonia , continue wide spectrum antibiotics , send blood culture (5) Drug abuse Assessment & Plan: screening for HIV and hepatitis are negative , recommend counseling and rehabilitation Subjective Constitutional: Reports: fatigue Respiratory: Reports: dry cough Cardiovascular: Reports: chest pain, dyspnea on exertion Musculoskeletal: Reports: pain Allergies: Coded Allergies: AMOXICILLIN (Verified Allergy, Mild, 06/28/15) ASPIRIN (Verified Allergy, Mild, 06/28/15) SALICYLATES (Verified Allergy, Mild, 06/28/15) All Systems: reviewed and negative except above Objective Vital Signs Last 24 Hour Vital Signs Date Time Temp Pulse Resp B/P Pulse Ox O2 Delivery O2 Flow Rate FiO2 12/06/16 16:00 98.3 95 21 124/74 98 Nasal Cannula 2.5 12/06/16 14:46 98.0 12/06/16 14:46 98.0 12/06/16 13:00 98.0 90 19 118/73 98 Room Air 12/06/16 08:26 98.8 96 21 116/76 97 Room Air 12/06/16 06:50 94 18 Nasal Cannula 2.0 12/06/16 06:49 96 Nasal Cannula 2.0 12/06/16 06:48 Nasal Cannula 2.0 12/06/16 05:42 98.3 12/06/16 04:00 98.3 100 20 130/86 Nasal Cannula 2.0 12/06/16 00:00 98.2 108 22 138/94 95 Nasal Cannula 2.0 Height (Feet): 5 Height (Inches): 6.00 Weight (Pounds): 220 General Appearance: WD/WN, no acute distress HEENT: normocephalic, atraumatic, anicteric, mucous membranes moist Respiratory/Chest: normal breath sounds, no respiratory distress, no accessory muscle use, decreased breath sounds, crackles/rales Cardiovascular: normal peripheral pulses, normal rate, regular rhythm, no gallop/murmur, no JVD Abdomen: normal bowel sounds, soft, non tender, no organomegaly, non distended , no mass, no scars Extremities: no cyanosis, no clubbing Skin: no rash, no lesions Laboratory Tests Test 12/06/16 06:50 White Blood Count 19.5 K/UL (4.8-10.8) H Red Blood Count 4.26 M/UL (4.20-5.40) Hemoglobin 12.6 G/DL (12.0-16.0) Hematocrit 37.4 % (37.0-47.0) Mean Corpuscular Volume 88 FL (80-99) Mean Corpuscular Hemoglobin 29.6 PG (27.0-31.0) Mean Corpuscular Hemoglobin Concent 33.7 G/DL (32.0-36.0) Red Cell Distribution Width 11.8 % (11.6-14.8) Platelet Count 484 K/UL (150-450) H Mean Platelet Volume 6.2 FL (6.5-10.1) L Neutrophils (%) (Auto) % (45.0-75.0) Lymphocytes (%) (Auto) % (20.0-45.0) Monocytes (%) (Auto) % (1.0-10.0) Eosinophils (%) (Auto) % (0.0-3.0) Basophils (%) (Auto) % (0.0-2.0) Differential Total Cells Counted 100 Neutrophils % (Manual) 83 % (45-75) H Lymphocytes % (Manual) 5 % (20-45) L Monocytes % (Manual) 11 % (1-10) H Eosinophils % (Manual) 0 % (0-3) Basophils % (Manual) 0 % (0-2) Band Neutrophils 1 % (0-8) Platelet Estimate Adequate Platelet Morphology Normal Hypochromasia 1+ Sodium Level 133 mEQ/L (135-145) L Potassium Level 4.1 mEQ/L (3.4-4.9) Chloride Level 90 mEQ/L (98-107) L Carbon Dioxide Level 30 mEQ/L (20-30) Anion Gap 13 (5-15) Blood Urea Nitrogen 9 mg/dL (7-23) Creatinine 0.6 mg/dL (0.5-0.9) Estimat Glomerular Filtration Rate > 60 mL/min (>60) Glucose Level 123 mg/dL (74-106) H Calcium Level 8.7 mg/dL (8.6-10.2) Vancomycin Level Trough 13.4 ug/mL (5.0-12.0) H Current Medications Medications (Trade) Dose Ordered Sig/Ok Route PRN Reason Start Time Stop Time Status Last Admin Dose Admin Acetaminophen (Tylenol) 650 mg Q4H PRN ORAL fever 12/03/16 06:15 01/02/17 06:14 12/04/16 17:10 Al Hydroxide/Mg Hydroxide (Mylanta II) 30 ml Q6H PRN ORAL dyspepsia 12/03/16 06:15 01/02/17 06:14 Albuterol/ Ipratropium (DuoNeb 0.5-3(2.5)mg/3ml) 3 ml Q4H PRN HHN Shortness of Breath 12/03/16 06:15 12/08/16 06:14 Aztreonam/Sodium Chloride (Azactam/Sodium Chloride) 55 ml @ 110 mls/hr Q8H IVPB 12/03/16 14:00 12/10/16 13:59 12/06/16 14:06 Carbamazepine (TEGretol XR) 200 mg DAILY ORAL 12/03/16 09:00 01/02/17 08:59 Dextrose (Dextrose 50%) STAT PRN IV Hypoglycemia 12/03/16 13:45 01/02/17 13:44 Heparin Sodium (Porcine) (Heparin 5000 units/ml) 5,000 units EVERY 12 HOURS SUBQ 12/03/16 09:00 01/02/17 08:59 Hydromorphone HCl (Dilaudid) 1.5 mg Q4H PRN IVP severe pain 12/06/16 08:45 12/13/16 08:44 12/06/16 14:16 Insulin Aspart (NovoLOG) BEFORE MEALS AND HS SUBQ 12/03/16 16:30 01/02/17 16:29 12/04/16 17:15 Lidocaine (Lidoderm 5% PATCH) 1 patch Q24H TDERMAL 12/05/16 21:00 01/04/17 20:59 12/05/16 21:28 Metronidazole 500 mg 500 mg Q8HR ORAL 12/03/16 16:30 12/10/16 16:29 12/06/16 14:06 Nitroglycerin (Ntg) 0.4 mg Q5M PRN SL Prn Chest Pain 12/03/16 06:15 01/02/17 06:14 Ondansetron HCl (Zofran) 4 mg Q6H PRN IVP Nausea & Vomiting 12/03/16 06:15 01/02/17 06:14 12/05/16 18:59 Oxycodone/ Acetaminophen (Percocet 10/325) 1 tab Q6H PRN ORAL moderate pain 12/06/16 08:30 12/13/16 08:29 Polyethylene Glycol (Miralax) 17 gm DAILYPRN PRN ORAL Constipation 12/03/16 06:15 01/02/17 06:14 Pregabalin (Lyrica) 150 mg THREE TIMES A DAY ORAL 12/06/16 09:00 01/05/17 08:59 12/06/16 17:03 Promethazine HCl/ Codeine (Phenergan with Codeine) 5 ml Q4H PRN ORAL For Cough 12/03/16 06:15 01/02/17 06:14 Temazepam 15 mg 15 mg HSPRN PRN ORAL Insomnia 12/03/16 06:15 12/10/16 06:14 Vancomycin HCl (Vanco rx to dose) 1 ea DAILY PRN MISC Per rx protocol 12/03/16 06:15 01/02/17 06:14 Vancomycin HCl/ Dextrose (Vancomycin/D5W) 275 ml @ 183.708 mls/hr Q8H IVPB 12/04/16 16:00 12/09/16 15:59 12/06/16 17:04 Josue Kelley M.D. Dec 06, 2016 20:20
[2016-12-07] MEDS: Vancomycin 1250mg in D5W 275ml IVPB SCH ×3 (00:08→16:00)
[2016-12-07 00:11] VITALS: BP 118/71
[2016-12-07 04:00] VITALS: BP 106/72
--- NOTE | 2016-12-07 06:08 | Consultation ---
DATE OF CONSULTATION: 12/06/2016 PAIN MANAGEMENT CONSULTATION CONSULTING PHYSICIAN: Reny Castellano M.D. REFERRING PHYSICIAN: Aidan Melara D.O. CHIEF COMPLAINT: Left-sided chest pain and low back pain. HISTORY OF PRESENT ILLNESS: This is a 46-year-old female, who is being seen on the Medical/Surgical floor of [facility] for initial complaints of pain management consultation. The patient has been admitted under the care of Dr. Melara, being seen by mortar carrier and having pain in the left side of her chest due to the pneumonia and pleural effusion, was found on admission to be positive for cocaine and amphetamine abuse in the urine. Reports that she has had a history of low back pain, which is chronic. At this time, the patient's pain is 10/10, on morphine 6 mg IV every four hours as needed for severe pain, which was ordered by Dr. Castellano with minimal pain relief. As an outpatient, the patient was taking Percocet 10 mg three times a day with Neurontin 600 mg four times a day and at times Dilaudid 2 mg tablets or tramadol 50 mg tablet. At this time, the patient is in severe pain. The pain is not tolerable at this time. We were consulted, so that the patient would have pain control while here in the hospital. PAST MEDICAL HISTORY: Bipolar disorder and diabetes. PAST SURGICAL HISTORY: , tubal surgery, collapsed lung, appendectomy, and knee surgery. MEDICATIONS: Tegretol, Flexeril, ferrous sulfate, Neurontin, Dilaudid, Motrin, meloxicam, Prilosec, Tylenol Extra-Strength, albuterol, Benadryl, and Zofran. ALLERGIES: Penicillin. SOCIAL HISTORY: Cocaine abuse and amphetamine abuse. REVIEW OF SYSTEMS: Denies rash, fever, chills, sweating, dizziness, drowsiness, blurred vision, sore throat, or change in weight. No bowel or bladder incontinence. She is complaining of left-sided chest wall pain and back pain. PHYSICAL EXAMINATION: GENERAL: Alert, awake, and oriented. VITAL SIGNS: Blood pressure 116/76, heart rate is 96, saturation 97% saturation, respiratory rate 21, and temperature 98.8 degrees Fahrenheit. Height is 5 feet 6 inches. Weight is 285 pounds. HEENT: PERRLA. NECK: Range of motion is decreased due to the patient's clinical condition. LUNGS: Decreased breath sounds bilaterally. HEART: S1 and S2, regular. ABDOMEN: Obese. BACK: Range of motion is decreased due to the patient's clinical condition. EXTREMITIES: Upper extremities: The range of motion is decreased due to the patient's clinical condition. Motor is intact. No cyanosis, clubbing or edema. Sensory is intact. Lower extremities, the range of motion is decreased due to the patient's clinical condition. Motor is intact. No cyanosis, clubbing or edema noted. Sensory is intact. There is no adenopathy. ASSESSMENT AND PLAN: This is a 46-year-old female with polysubstance abuse, chest wall pain due to pneumonia and pleural effusion, lumbar degenerative disease, lumbar spondylosis, and lumbar radiculopathy. The patient will discontinue the morphine, started on Dilaudid 1.5 mg IV every four hours as needed for severe pain and Percocet 10 mg every six hours as needed for moderate pain, and Lyrica 50 mg tablet three times a day. The patient was discussed with Dr. Castellano and Dr. Castellano concurred. We will follow the patient. Thank you very much for the courtesy of this consultation. Reny Castellano M.D. SOULEYMANE Epps DR: SEAN JOB#: [id number] CC:
[2016-12-07] MEDS: NovoLOG Insulin Flexpen SUBQ SCH ×4 (06:30→20:58)
[2016-12-07] MEDS: Aztreonam Inj 1 GM in NS 55 ML IVPB SCH ×3 (06:42→22:00)
[2016-12-07] MEDS: metroNIDAZOLE 500mg tab ORAL SCH ×3 (06:45→22:01)
[2016-12-07 07:25] LABS: BASOPHILS % (AUTO) 0.7 % (0.0-2.0); LYMPHOCYTES % (AUTO) 13.1 % (20.0-45.0); MEAN CORPUSCULAR HEMOGLOBIN 29.5 PG (27.0-31.0); MEAN CORPUSCULAR HGB CONC 33.5 G/DL (32.0-36.0); MEAN CORPUSCULAR VOLUME 88 FL (80-99); MEAN PLATELET VOLUME 6.1 FL (6.5-10.1); MONOCYTES % (AUTO) 11.2 % (1.0-10.0); PLATELET COUNT 486 K/UL (150-450); RED BLOOD COUNT 4.13 M/UL (4.20-5.40); RED CELL DISTRIBUTION WIDTH 11.8 % (11.6-14.8); WHITE BLOOD COUNT 13.3 K/UL (4.8-10.8)
[2016-12-07 08:13] LABS: ANION GAP 11 (5-15); CALCIUM 8.9 mg/dL (8.6-10.2); CARBON DIOXIDE 31 mEQ/L (20-30); CHLORIDE 94 mEQ/L (98-107); CREATININE 0.6 mg/dL (0.5-0.9); GLOMERULAR FILTRATION RATE > 60 mL/min (>60); HEMOLYSIS 1; POTASSIUM 4.3 mEQ/L (3.4-4.9); SODIUM 136 mEQ/L (135-145)
[2016-12-07 08:28] VITALS: BP 106/60
[2016-12-07] MEDS: Heparin 5000 units/ml inj SUBQ SCH ×2 (09:00→20:58)
[2016-12-07] MEDS: Lyrica 75mg cap ORAL SCH ×3 (09:13→17:44)
[2016-12-07] MEDS: carBAMazepine XR 200mg tab ORAL SCH (09:13)
--- NOTE | 2016-12-07 10:26 | General Progress Note ---
Assessment/Plan Assessment/Plan (1) Polysubstance abuse (2) Chest wall pain due to pneumonia and pleural effusion (3) Lumbar DDD (4) Lumbar Spondylosis (5) Lumbar Radiculopathy We will continue Dilaudid, Percocet and Lyrica. The patient was discussed with Dr. Castellano and Dr. Castellano concurred. Subjective Date patient seen: Dec 07, 2016 Time patient seen: 09:45 - am Allergies: Coded Allergies: AMOXICILLIN (Verified Allergy, Mild, 06/28/15) ASPIRIN (Verified Allergy, Mild, 06/28/15) SALICYLATES (Verified Allergy, Mild, 06/28/15) Subjective REVIEW OF SYSTEMS: Denies rash, fever, chills, sweating, dizziness, drowsiness, blurred vision, sore throat, or change in weight. No bowel or bladder incontinence. She is complaining of left-sided chest wall pain and back pain. SUBJECTIVE: Pt states that her pain has been reduced on the changed medications The pain is a 7/10 reduced to a 2/10 while on the medications. Objective Last 24 Hour Vital Signs Date Time Temp Pulse Resp B/P Pulse Ox O2 Delivery O2 Flow Rate FiO2 12/07/16 10:11 97.9 12/07/16 10:11 97.9 12/07/16 08:28 97.9 90 20 106/60 95 Room Air 12/07/16 04:00 97.2 90 20 106/72 93 Nasal Cannula 12/07/16 00:11 97.7 79 21 118/71 95 Nasal Cannula 12/06/16 20:00 98.3 91 21 119/69 97 Nasal Cannula 2.0 12/06/16 19:02 95 Nasal Cannula 2.0 12/06/16 19:02 Nasal Cannula 2.0 28 12/06/16 19:02 91 18 Nasal Cannula 2.0 12/06/16 16:00 98.3 95 21 124/74 98 Nasal Cannula 2.5 12/06/16 13:00 98.0 90 19 118/73 98 Room Air Intake and Output 12/06/16 12/07/16 19:00 07:00 Intake Total 910.000 ml 655 ml Output Total 500 ml Balance 410.000 ml 655 ml Intake Oral 360 ml 600 ml IV Total 550.000 ml 55 ml Output Urine Total 500 ml # Voids 3 4 # Bowel Movements 1 Laboratory Tests 12/07/16 05:25: White Blood Count 13.3H, Red Blood Count 4.13L, Hemoglobin 12.2, Hematocrit 36.4L, Mean Corpuscular Volume 88, Mean Corpuscular Hemoglobin 29.5, Mean Corpuscular Hemoglobin Concent 33.5, Red Cell Distribution Width 11.8, Platelet Count 486H, Mean Platelet Volume 6.1L, Neutrophils (%) (Auto) 72.0, Lymphocytes (%) (Auto) 13.1L, Monocytes (%) (Auto) 11.2H, Eosinophils (%) (Auto) 3.0, Basophils (%) (Auto) 0.7, Sodium Level 136, Potassium Level 4.3, Chloride Level 94L, Carbon Dioxide Level 31H, Anion Gap 11, Blood Urea Nitrogen 11, Creatinine 0.6, Estimat Glomerular Filtration Rate > 60, Glucose Level 94, Calcium Level 8.9 Height (Feet): 5 Height (Inches): 6.00 Weight (Pounds): 220 Objective PHYSICAL EXAMINATION: GENERAL: Alert, awake, and oriented. HEENT: PERRLA. NECK: Range of motion is decreased due to the patient's clinical condition. LUNGS: Decreased breath sounds bilaterally. HEART: S1 and S2, regular. ABDOMEN: Obese. BACK: Range of motion is decreased due to the patient's pain and condition. EXTREMITIES: No cyanosis, clubbing or edema. NEURO: No changes HARSH SCOTT Dec 07, 2016 10:26
[2016-12-07 12:27] VITALS: BP 116/69
--- NOTE | 2016-12-07 12:49 | Diagnostic Imaging Report ---
Indication: MASS pain Technique: Grayscale and duplex images of the thyroid Comparison: Reference made to chest CT angiogram 12/02/2016 Findings: Right thyroid lobe measures 3.9 cm length x 2.4 cm AP. Left thyroid lobe measures 2.8 cm length x 1.5 cm AP. Both thyroid lobes demonstrate normal echogenicity.. In the right thyroid lower pole, there is a 3.2 x 1.9 cm mass, corresponding to the abnormality described on recent CT scan. This is solid, slightly hypoechoic as compared to normal thyroid parenchyma. The left thyroid lobe demonstrates a few subcentimeter nodules. Impression: 3.2 x 1.9 cm posterior right lower pole thyroid nodule, corresponding to abnormality described on recent CT. Further evaluation with tissue sampling should be considered Subcentimeter left lobe thyroid nodules.
--- NOTE | 2016-12-07 13:17 | General Progress Note ---
Assessment/Plan Problem List: (1) Sepsis ICD Codes: A41.9 - Sepsis, unspecified organism SNOMED: 46753292, 880322357 Qualifiers: Qualified Codes: A41.9 - Sepsis, unspecified organism (2) Pneumonia ICD Codes: J18.9 - Pneumonia, unspecified organism SNOMED: 176044146 Qualifiers: Qualified Codes: J18.9 - Pneumonia, unspecified organism (3) UTI (urinary tract infection) ICD Codes: N39.0 - Urinary tract infection, site not specified SNOMED: 33383482 (4) Pleural effusion ICD Codes: J90 - Pleural effusion, not elsewhere classified SNOMED: 79945757 Status: stable, progressing, tolerating diet Assessment/Plan o2 pulm tx abx cbc bmp am dc plan Subjective Constitutional: Reports: weakness Allergies: Coded Allergies: AMOXICILLIN (Verified Allergy, Mild, 06/28/15) ASPIRIN (Verified Allergy, Mild, 06/28/15) SALICYLATES (Verified Allergy, Mild, 06/28/15) All Systems: reviewed and negative except above Subjective o2nc sleepy s/p thorocentesis Objective Last 24 Hour Vital Signs Date Time Temp Pulse Resp B/P Pulse Ox O2 Delivery O2 Flow Rate FiO2 12/07/16 12:27 98.8 93 20 116/69 95 Room Air 12/07/16 10:11 97.9 12/07/16 10:11 97.9 12/07/16 08:28 97.9 90 20 106/60 95 Room Air 12/07/16 04:00 97.2 90 20 106/72 93 Nasal Cannula 12/07/16 00:11 97.7 79 21 118/71 95 Nasal Cannula 12/06/16 20:00 98.3 91 21 119/69 97 Nasal Cannula 2.0 12/06/16 19:02 95 Nasal Cannula 2.0 12/06/16 19:02 Nasal Cannula 2.0 28 12/06/16 19:02 91 18 Nasal Cannula 2.0 12/06/16 16:00 98.3 95 21 124/74 98 Nasal Cannula 2.5 Intake and Output 12/06/16 12/07/16 19:00 07:00 Intake Total 910.000 ml 655 ml Output Total 500 ml Balance 410.000 ml 655 ml Intake Oral 360 ml 600 ml IV Total 550.000 ml 55 ml Output Urine Total 500 ml # Voids 3 4 # Bowel Movements 1 Laboratory Tests 12/07/16 05:25: White Blood Count 13.3H, Red Blood Count 4.13L, Hemoglobin 12.2, Hematocrit 36.4L, Mean Corpuscular Volume 88, Mean Corpuscular Hemoglobin 29.5, Mean Corpuscular Hemoglobin Concent 33.5, Red Cell Distribution Width 11.8, Platelet Count 486H, Mean Platelet Volume 6.1L, Neutrophils (%) (Auto) 72.0, Lymphocytes (%) (Auto) 13.1L, Monocytes (%) (Auto) 11.2H, Eosinophils (%) (Auto) 3.0, Basophils (%) (Auto) 0.7, Sodium Level 136, Potassium Level 4.3, Chloride Level 94L, Carbon Dioxide Level 31H, Anion Gap 11, Blood Urea Nitrogen 11, Creatinine 0.6, Estimat Glomerular Filtration Rate > 60, Glucose Level 94, Calcium Level 8.9 Height (Feet): 5 Height (Inches): 6.00 Weight (Pounds): 220 General Appearance: alert EENT: normal ENT inspection Neck: normal alignment Cardiovascular: normal peripheral pulses, normal rate, regular rhythm Respiratory/Chest: chest wall non-tender, lungs clear, decreased breath sounds Abdomen: normal bowel sounds, non tender, soft Extremities: normal inspection Edema: no edema noted Arm (L), no edema noted Arm (R), no edema noted Leg (L), no edema noted Leg (R), no edema noted Pedal (L), no edema noted Pedal (R), no edema noted Generalized Neurologic: responsive, 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
[2016-12-07 16:00] VITALS: BP 117/71
--- NOTE | 2016-12-07 17:41 | Infectious Diseases Prog Note ---
Assessment/Plan Problems: (1) Pleural effusion Assessment & Plan: loculated, S/P thoracentesis , await fluids culture to rule out empyema, recommend thoracic surgery evaluation for possible decortication (2) CAP (community acquired pneumonia) Assessment & Plan: complicated with loculated pleural effusion , S/P thoracentesis , continue vancomycin, flagyl and aztreonam empirically, await blood and sputum culture (3) UTI (urinary tract infection) Assessment & Plan: continue aztreonam , await culture (4) Sepsis Assessment & Plan: due to pneumonia , continue wide spectrum antibiotics , send blood culture (5) Drug abuse Assessment & Plan: screening for HIV and hepatitis are negative , recommend counseling and rehabilitation Subjective Respiratory: Reports: dry cough Breasts: Reports: tenderness Cardiovascular: Reports: chest pain Allergies: Coded Allergies: AMOXICILLIN (Verified Allergy, Mild, 06/28/15) ASPIRIN (Verified Allergy, Mild, 06/28/15) SALICYLATES (Verified Allergy, Mild, 06/28/15) All Systems: reviewed and negative except above Objective Vital Signs Last 24 Hour Vital Signs Date Time Temp Pulse Resp B/P Pulse Ox O2 Delivery O2 Flow Rate FiO2 12/07/16 16:00 99.9 98 20 117/71 96 Nasal Cannula 2.0 12/07/16 14:29 98.8 12/07/16 12:27 98.8 93 20 116/69 95 Room Air 12/07/16 10:11 97.9 12/07/16 08:28 97.9 90 20 106/60 95 Room Air 12/07/16 04:00 97.2 90 20 106/72 93 Nasal Cannula 12/07/16 00:11 97.7 79 21 118/71 95 Nasal Cannula 12/06/16 20:00 98.3 91 21 119/69 97 Nasal Cannula 2.0 12/06/16 19:02 95 Nasal Cannula 2.0 12/06/16 19:02 Nasal Cannula 2.0 28 12/06/16 19:02 91 18 Nasal Cannula 2.0 Height (Feet): 5 Height (Inches): 6.00 Weight (Pounds): 220 General Appearance: WD/WN, no acute distress HEENT: normocephalic, atraumatic, anicteric, mucous membranes moist Respiratory/Chest: chest wall non-tender, lungs clear, normal breath sounds, no respiratory distress, no accessory muscle use Cardiovascular: normal peripheral pulses, normal rate, regular rhythm, no gallop/murmur, no JVD Abdomen: normal bowel sounds, soft, non tender, no organomegaly, non distended , no mass, no scars Extremities: no cyanosis, no clubbing Skin: no rash, no lesions, no ulcers Microbiology Date/Time Source Procedure Growth Status 12/06/16 16:00 Other Fluid Gram Stain - Final Resulted 12/06/16 16:00 Other Fluid Body Fluid Culture Pending Resulted Laboratory Tests Test 12/07/16 05:25 White Blood Count 13.3 K/UL (4.8-10.8) H Red Blood Count 4.13 M/UL (4.20-5.40) L Hemoglobin 12.2 G/DL (12.0-16.0) Hematocrit 36.4 % (37.0-47.0) L Mean Corpuscular Volume 88 FL (80-99) Mean Corpuscular Hemoglobin 29.5 PG (27.0-31.0) Mean Corpuscular Hemoglobin Concent 33.5 G/DL (32.0-36.0) Red Cell Distribution Width 11.8 % (11.6-14.8) Platelet Count 486 K/UL (150-450) H Mean Platelet Volume 6.1 FL (6.5-10.1) L Neutrophils (%) (Auto) 72.0 % (45.0-75.0) Lymphocytes (%) (Auto) 13.1 % (20.0-45.0) L Monocytes (%) (Auto) 11.2 % (1.0-10.0) H Eosinophils (%) (Auto) 3.0 % (0.0-3.0) Basophils (%) (Auto) 0.7 % (0.0-2.0) Sodium Level 136 mEQ/L (135-145) Potassium Level 4.3 mEQ/L (3.4-4.9) Chloride Level 94 mEQ/L (98-107) L Carbon Dioxide Level 31 mEQ/L (20-30) H Anion Gap 11 (5-15) Blood Urea Nitrogen 11 mg/dL (7-23) Creatinine 0.6 mg/dL (0.5-0.9) Estimat Glomerular Filtration Rate > 60 mL/min (>60) Glucose Level 94 mg/dL (74-106) Calcium Level 8.9 mg/dL (8.6-10.2) Current Medications Medications (Trade) Dose Ordered Sig/Ok Route PRN Reason Start Time Stop Time Status Last Admin Dose Admin Acetaminophen (Tylenol) 650 mg Q4H PRN ORAL fever 12/03/16 06:15 01/02/17 06:14 12/04/16 17:10 Al Hydroxide/Mg Hydroxide (Mylanta II) 30 ml Q6H PRN ORAL dyspepsia 12/03/16 06:15 01/02/17 06:14 Albuterol/ Ipratropium (DuoNeb 0.5-3(2.5)mg/3ml) 3 ml Q4H PRN HHN Shortness of Breath 12/03/16 06:15 12/08/16 06:14 Aztreonam/Sodium Chloride (Azactam/Sodium Chloride) 55 ml @ 110 mls/hr Q8H IVPB 12/03/16 14:00 12/10/16 13:59 12/07/16 15:15 Carbamazepine (TEGretol XR) 200 mg DAILY ORAL 12/03/16 09:00 01/02/17 08:59 12/07/16 09:13 Dextrose (Dextrose 50%) STAT PRN IV Hypoglycemia 12/03/16 13:45 01/02/17 13:44 Heparin Sodium (Porcine) (Heparin 5000 units/ml) 5,000 units EVERY 12 HOURS SUBQ 12/03/16 09:00 01/02/17 08:59 Heparin Sodium/ Sodium Chloride (Heparin 2000 units/Ns 1000ml premix) 2,000 unit ONCE PRN INJ PICC PLACEMENT 12/10/16 09:00 12/10/16 23:59 Hydromorphone HCl (Dilaudid) 1.5 mg Q4H PRN IVP severe pain 12/06/16 08:45 12/13/16 08:44 12/07/16 09:41 Insulin Aspart (NovoLOG) BEFORE MEALS AND HS SUBQ 12/03/16 16:30 01/02/17 16:29 12/04/16 17:15 Lidocaine (Lidoderm 5% PATCH) 1 patch Q24H TDERMAL 12/05/16 21:00 01/04/17 20:59 12/06/16 22:15 Lidocaine HCl (Xylocaine 1% 30ml) 30 ml ONCE PRN INJ PICC PLACEMENT 12/10/16 09:00 12/10/16 23:59 Metronidazole 500 mg 500 mg Q8HR ORAL 12/03/16 16:30 12/10/16 16:29 12/07/16 13:30 Nitroglycerin (Ntg) 0.4 mg Q5M PRN SL Prn Chest Pain 12/03/16 06:15 01/02/17 06:14 Ondansetron HCl (Zofran) 4 mg Q6H PRN IVP Nausea & Vomiting 12/03/16 06:15 01/02/17 06:14 12/07/16 11:29 Oxycodone/ Acetaminophen (Percocet 10/325) 1 tab Q6H PRN ORAL moderate pain 12/06/16 08:30 12/13/16 08:29 12/07/16 16:39 Polyethylene Glycol (Miralax) 17 gm DAILYPRN PRN ORAL Constipation 12/03/16 06:15 01/02/17 06:14 Pregabalin (Lyrica) 150 mg THREE TIMES A DAY ORAL 12/06/16 09:00 01/05/17 08:59 12/07/16 13:30 Promethazine HCl/ Codeine (Phenergan with Codeine) 5 ml Q4H PRN ORAL For Cough 12/03/16 06:15 01/02/17 06:14 Sodium Bicarbonate (Sodium Bicarbonate) 50 ml ONCE PRN IV PICC PLACEMENT 12/10/16 06:00 12/10/16 23:59 Temazepam 15 mg 15 mg HSPRN PRN ORAL Insomnia 12/03/16 06:15 12/10/16 06:14 Vancomycin HCl (Vanco rx to dose) 1 ea DAILY PRN MISC Per rx protocol 12/03/16 06:15 01/02/17 06:14 Vancomycin HCl/ Dextrose (Vancomycin/D5W) 275 ml @ 183.708 mls/hr Q8H IVPB 12/04/16 16:00 12/09/16 15:59 12/07/16 09:32 Josue Kelley M.D. Dec 07, 2016 17:41
[2016-12-07 20:00] VITALS: BP 118/77
[2016-12-08] VITALS: BP 110/79
[2016-12-08 04:00] VITALS: BP 119/69
[2016-12-08] MEDS: metroNIDAZOLE 500mg tab ORAL SCH ×3 (05:59→21:25)
[2016-12-08] MEDS: Aztreonam Inj 1 GM in NS 55 ML IVPB SCH ×2 (06:00→11:50)
[2016-12-08] MEDS: NovoLOG Insulin Flexpen SUBQ SCH ×4 (06:01→20:13)
[2016-12-08 08:00] VITALS: BP 123/83
[2016-12-08] MEDS: Vancomycin 1250mg in D5W 275ml IVPB SCH ×3 (08:00)
--- NOTE | 2016-12-08 08:27 | General Progress Note ---
Assessment/Plan Problem List: (1) Sepsis ICD Codes: A41.9 - Sepsis, unspecified organism SNOMED: 79439538, [id number] Qualifiers: Qualified Codes: A41.9 - Sepsis, unspecified organism (2) Pneumonia ICD Codes: J18.9 - Pneumonia, unspecified organism SNOMED: 535652911 Qualifiers: Qualified Codes: J18.9 - Pneumonia, unspecified organism (3) UTI (urinary tract infection) ICD Codes: N39.0 - Urinary tract infection, site not specified SNOMED: 15014662 (4) Pleural effusion ICD Codes: J90 - Pleural effusion, not elsewhere classified SNOMED: 85176124 Status: stable, progressing, tolerating diet Assessment/Plan o2 pulm tx abx cbc bmp am dc plan Subjective Constitutional: Reports: weakness Allergies: Coded Allergies: AMOXICILLIN (Verified Allergy, Mild, 06/28/15) ASPIRIN (Verified Allergy, Mild, 06/28/15) SALICYLATES (Verified Allergy, Mild, 06/28/15) All Systems: reviewed and negative except above Subjective o2nc sleepy s/p thorocentesis Objective Last 24 Hour Vital Signs Date Time Temp Pulse Resp B/P Pulse Ox O2 Delivery O2 Flow Rate FiO2 12/08/16 05:47 96.6 12/08/16 04:00 97.8 78 20 119/69 98 Room Air 12/08/16 00:00 96.6 103 19 110/79 93 Nasal Cannula 3.0 12/07/16 20:00 96.8 105 19 118/77 92 Nasal Cannula 3.0 12/07/16 19:05 Nasal Cannula 2.0 28 12/07/16 19:05 95 2.0 12/07/16 19:05 95 20 Nasal Cannula 2.0 12/07/16 16:00 99.9 98 20 117/71 96 Nasal Cannula 2.0 12/07/16 14:29 98.8 12/07/16 12:27 98.8 93 20 116/69 95 Room Air 12/07/16 10:11 97.9 12/07/16 08:28 97.9 90 20 106/60 95 Room Air Intake and Output 12/07/16 12/08/16 19:00 07:00 Intake Total 1115.000 ml 460 ml Balance 1115.000 ml 460 ml Intake Oral 840 ml 460 ml IV Total 275.000 ml # Voids 3 3 Height (Feet): 5 Height (Inches): 6.00 Weight (Pounds): 220 General Appearance: alert EENT: normal ENT inspection Neck: supple Cardiovascular: normal peripheral pulses, normal rate Respiratory/Chest: chest wall non-tender, lungs clear, decreased breath sounds Abdomen: normal bowel sounds, non tender, soft Extremities: normal inspection Edema: no edema noted Arm (L), no edema noted Arm (R), no edema noted Leg (L), no edema noted Leg (R), no edema noted Pedal (L), no edema noted Pedal (R), no edema noted Generalized Neurologic: motor weakness Skin: normal pigmentation, warm/dry MARIZOL MAGUIRE Dec 08, 2016 08:27
[2016-12-08 08:54] LABS: BASOPHILS % (AUTO) 0.6 % (0.0-2.0); EOSINOPHILS % (AUTO) 1.6 % (0.0-3.0); LYMPHOCYTES % (AUTO) 16.7 % (20.0-45.0); MEAN CORPUSCULAR HEMOGLOBIN 28.7 PG (27.0-31.0); MEAN CORPUSCULAR HGB CONC 32.9 G/DL (32.0-36.0); MEAN CORPUSCULAR VOLUME 87 FL (80-99); MEAN PLATELET VOLUME 6.1 FL (6.5-10.1); MONOCYTES % (AUTO) 7.7 % (1.0-10.0); NEUTROPHILS % (AUTO) 73.4 % (45.0-75.0); PLATELET COUNT 494 K/UL (150-450); RED CELL DISTRIBUTION WIDTH 11.8 % (11.6-14.8); WHITE BLOOD COUNT 14.3 K/UL (4.8-10.8)
[2016-12-08] MEDS: Heparin 5000 units/ml inj SUBQ SCH ×2 (08:56→20:12)
[2016-12-08] MEDS: carBAMazepine XR 200mg tab ORAL SCH (08:56)
[2016-12-08] MEDS: Lyrica 75mg cap ORAL SCH ×3 (08:56→17:38)
[2016-12-08 09:27] LABS: ANION GAP 11 (5-15); CALCIUM 8.5 mg/dL (8.6-10.2); CARBON DIOXIDE 31 mEQ/L (20-30); CHLORIDE 94 mEQ/L (98-107); CREATININE 0.6 mg/dL (0.5-0.9); GLOMERULAR FILTRATION RATE > 60 mL/min (>60); HEMOLYSIS 3; POTASSIUM 3.6 mEQ/L (3.4-4.9); SODIUM 136 mEQ/L (135-145)
[2016-12-08] MEDS ORDERED: Tubing IV Secondary IV ONE (10:59)
[2016-12-08] MEDS ORDERED: NS 275ml ONE (10:59)
[2016-12-08 11:08] VITALS: BP 105/63
[2016-12-08 11:16] LABS: FREE T3 2.5 pg/mL (2.3-4.2); THYROID STIMULATING HORMONE 1.46 uIU/mL (0.300-4.500)
[2016-12-08 16:00] VITALS: BP 114/71
--- NOTE | 2016-12-08 16:23 | Infectious Diseases Prog Note ---
Assessment/Plan Problems: (1) Pleural effusion Assessment & Plan: loculated, S/P thoracentesis , fluids culture was negative , but it was done while she was on wide spectrum antibiotics , so will treat her as an empyema for 4 weeks from the date she had her thoracentesis , she was evaluated by thoracic surgery for possible decortication but she refused, she also refused IV antibiotics therapy too, but agreed to take oral, she understand the risk of refusing surgery and IV antibiotics therapy, all questions were answered , she is welling to proceed with oral treatment. recommend repeating CT scan of the chest in 4 weeks once she is done with her antibiotics therapy , D/W nurse and patient, and PCP (2) CAP (community acquired pneumonia) Assessment & Plan: complicated with loculated pleural effusion , S/P thoracentesis , on vancomycin, flagyl and aztreonam empirically, blood and sputum culture are negative, will switch to oral regimen , she refused iv treatment. (3) UTI (urinary tract infection) Assessment & Plan: on aztreonam , culture was not done (4) Sepsis Assessment & Plan: due to pneumonia , continue wide spectrum antibiotics , send blood culture (5) Drug abuse Assessment & Plan: screening for HIV and hepatitis are negative , recommend counseling and rehabilitation Subjective Constitutional: Reports: fatigue Respiratory: Reports: dry cough Cardiovascular: Reports: chest pain Allergies: Coded Allergies: AMOXICILLIN (Verified Allergy, Mild, 06/28/15) ASPIRIN (Verified Allergy, Mild, 06/28/15) SALICYLATES (Verified Allergy, Mild, 06/28/15) All Systems: reviewed and negative except above Objective Vital Signs Last 24 Hour Vital Signs Date Time Temp Pulse Resp B/P Pulse Ox O2 Delivery O2 Flow Rate FiO2 12/08/16 14:55 97.7 12/08/16 12:10 97.7 12/08/16 11:08 97.7 94 22 105/63 90 Room Air 12/08/16 08:00 97.9 96 20 123/83 94 Room Air 12/08/16 04:00 97.8 78 20 119/69 98 Room Air 12/08/16 00:00 96.6 103 19 110/79 93 Nasal Cannula 3.0 12/07/16 20:00 96.8 105 19 118/77 92 Nasal Cannula 3.0 12/07/16 19:05 Nasal Cannula 2.0 28 12/07/16 19:05 95 2.0 12/07/16 19:05 95 20 Nasal Cannula 2.0 Height (Feet): 5 Height (Inches): 6.00 Weight (Pounds): 220 General Appearance: WD/WN, no acute distress HEENT: normocephalic, atraumatic, anicteric, mucous membranes moist Respiratory/Chest: normal breath sounds, no respiratory distress, no accessory muscle use, decreased breath sounds, crackles/rales Cardiovascular: normal peripheral pulses, normal rate, regular rhythm, no gallop/murmur, no JVD Abdomen: normal bowel sounds, soft, non tender, no organomegaly, non distended , no mass, no scars Extremities: no cyanosis, no clubbing Skin: no rash, no lesions, no ulcers Microbiology Date/Time Source Procedure Growth Status 12/06/16 16:00 Other Fluid Gram Stain - Final Resulted 12/06/16 16:00 Other Fluid Body Fluid Culture - Preliminary NO GROWTH AFTER 24 HOURS Resulted Laboratory Tests Test 12/08/16 08:40 White Blood Count 14.3 K/UL (4.8-10.8) H Red Blood Count 4.10 M/UL (4.20-5.40) L Hemoglobin 11.7 G/DL (12.0-16.0) L Hematocrit 35.7 % (37.0-47.0) L Mean Corpuscular Volume 87 FL (80-99) Mean Corpuscular Hemoglobin 28.7 PG (27.0-31.0) Mean Corpuscular Hemoglobin Concent 32.9 G/DL (32.0-36.0) Red Cell Distribution Width 11.8 % (11.6-14.8) Platelet Count 494 K/UL (150-450) H Mean Platelet Volume 6.1 FL (6.5-10.1) L Neutrophils (%) (Auto) 73.4 % (45.0-75.0) Lymphocytes (%) (Auto) 16.7 % (20.0-45.0) L Monocytes (%) (Auto) 7.7 % (1.0-10.0) Eosinophils (%) (Auto) 1.6 % (0.0-3.0) Basophils (%) (Auto) 0.6 % (0.0-2.0) Sodium Level 136 mEQ/L (135-145) Potassium Level 3.6 mEQ/L (3.4-4.9) Chloride Level 94 mEQ/L (98-107) L Carbon Dioxide Level 31 mEQ/L (20-30) H Anion Gap 11 (5-15) Blood Urea Nitrogen 10 mg/dL (7-23) Creatinine 0.6 mg/dL (0.5-0.9) Estimat Glomerular Filtration Rate > 60 mL/min (>60) Glucose Level 150 mg/dL (74-106) H Calcium Level 8.5 mg/dL (8.6-10.2) L Thyroid Stimulating Hormone (TSH) 1.460 uIU/mL (0.300-4.500) Free Thyroxine 1.25 ng/dL (0.86-1.85) Free Triiodothyronine 2.5 pg/mL (2.3-4.2) Current Medications Medications (Trade) Dose Ordered Sig/Ok Route PRN Reason Start Time Stop Time Status Last Admin Dose Admin Acetaminophen (Tylenol) 650 mg Q4H PRN ORAL fever 12/03/16 06:15 01/02/17 06:14 12/04/16 17:10 Al Hydroxide/Mg Hydroxide (Mylanta II) 30 ml Q6H PRN ORAL dyspepsia 12/03/16 06:15 01/02/17 06:14 Aztreonam/Sodium Chloride (Azactam/Sodium Chloride) 55 ml @ 110 mls/hr Q8H IVPB 12/03/16 14:00 12/10/16 13:59 12/07/16 15:15 Carbamazepine (TEGretol XR) 200 mg DAILY ORAL 12/03/16 09:00 01/02/17 08:59 12/08/16 08:56 Dextrose (Dextrose 50%) STAT PRN IV Hypoglycemia 12/03/16 13:45 01/02/17 13:44 Heparin Sodium (Porcine) (Heparin 5000 units/ml) 5,000 units EVERY 12 HOURS SUBQ 12/03/16 09:00 01/02/17 08:59 Heparin Sodium/ Sodium Chloride (Heparin 2000 units/Ns 1000ml premix) 2,000 unit ONCE PRN INJ PICC PLACEMENT 12/10/16 09:00 12/10/16 23:59 Hydromorphone HCl (Dilaudid) 1.5 mg Q4H PRN IVP severe pain 12/06/16 08:45 12/13/16 08:44 12/07/16 09:41 Insulin Aspart (NovoLOG) BEFORE MEALS AND HS SUBQ 12/03/16 16:30 01/02/17 16:29 12/04/16 17:15 Lidocaine (Lidoderm 5% PATCH) 1 patch Q24H TDERMAL 12/05/16 21:00 01/04/17 20:59 12/07/16 22:02 Lidocaine HCl (Xylocaine 1% 30ml) 30 ml ONCE PRN INJ PICC PLACEMENT 12/10/16 09:00 12/10/16 23:59 Metronidazole 500 mg 500 mg Q8HR ORAL 12/03/16 16:30 12/10/16 16:29 12/08/16 13:55 Nitroglycerin (Ntg) 0.4 mg Q5M PRN SL Prn Chest Pain 12/03/16 06:15 01/02/17 06:14 Ondansetron HCl (Zofran) 4 mg Q6H PRN IVP Nausea & Vomiting 12/03/16 06:15 01/02/17 06:14 12/07/16 11:29 Oxycodone/ Acetaminophen (Percocet 10/325) 1 tab Q6H PRN ORAL moderate pain 12/06/16 08:30 12/13/16 08:29 12/08/16 11:11 Polyethylene Glycol (Miralax) 17 gm DAILYPRN PRN ORAL Constipation 12/03/16 06:15 01/02/17 06:14 Pregabalin (Lyrica) 150 mg THREE TIMES A DAY ORAL 12/06/16 09:00 01/05/17 08:59 12/08/16 13:56 Promethazine HCl/ Codeine (Phenergan with Codeine) 5 ml Q4H PRN ORAL For Cough 12/03/16 06:15 01/02/17 06:14 Sodium Bicarbonate (Sodium Bicarbonate) 50 ml ONCE PRN IV PICC PLACEMENT 12/10/16 06:00 12/10/16 23:59 Temazepam 15 mg 15 mg HSPRN PRN ORAL Insomnia 12/03/16 06:15 12/10/16 06:14 Vancomycin HCl (Vanco rx to dose) 1 ea DAILY PRN MISC Per rx protocol 12/03/16 06:15 01/02/17 06:14 Vancomycin HCl/ Dextrose (Vancomycin/D5W) 275 ml @ 183.708 mls/hr Q8H IVPB 12/04/16 16:00 12/09/16 15:59 12/07/16 09:32 Josue Kelley M.D. Dec 08, 2016 16:23
--- NOTE | 2016-12-08 16:26 | Pulmonology Progress Note ---
Assessment/Plan Assessment/Plan ASSESSMENT pneumonia left loculated pleural effusion s/p thoracentesis ( incomplete) -800cc elevated D dimer thyroid nodule amphetamine abuse DM PLAN OF CARE MS floor isolation abx ID follows blood cx negative need sputum cx s/p thoracentesis ( incomplete ), loculated pleural effusion -only 800 cc obtained culture of pleural fluid preliminary negative thoracic surgery eval in progress CTA no gross evidence of central PE , revealed consolidation and atelectasis Left lobe as well as thyroid nodule thyroid US noted will need biopsy of thyroid nodule to further discern BS management with SS of insulin DVT prophylaxis case discussed and evaluated by supervising physician Subjective Allergies: Coded Allergies: AMOXICILLIN (Verified Allergy, Mild, 06/28/15) ASPIRIN (Verified Allergy, Mild, 06/28/15) SALICYLATES (Verified Allergy, Mild, 06/28/15) Subjective leukocytosis trending down, afebrile on RA pulse ox stable denies SOB, cough, Objective Last 24 Hour Vital Signs Date Time Temp Pulse Resp B/P Pulse Ox O2 Delivery O2 Flow Rate FiO2 12/08/16 14:55 97.7 12/08/16 12:10 97.7 12/08/16 11:08 97.7 94 22 105/63 90 Room Air 12/08/16 08:00 97.9 96 20 123/83 94 Room Air 12/08/16 04:00 97.8 78 20 119/69 98 Room Air 12/08/16 00:00 96.6 103 19 110/79 93 Nasal Cannula 3.0 12/07/16 20:00 96.8 105 19 118/77 92 Nasal Cannula 3.0 12/07/16 19:05 Nasal Cannula 2.0 28 12/07/16 19:05 95 2.0 12/07/16 19:05 95 20 Nasal Cannula 2.0 Intake and Output 12/07/16 12/08/16 19:00 07:00 Intake Total 1115.000 ml 460 ml Balance 1115.000 ml 460 ml Intake Oral 840 ml 460 ml IV Total 275.000 ml # Voids 3 3 General Appearance: no acute distress HEENT: normocephalic, atraumatic, anicteric, mucous membranes moist Respiratory/Chest: lungs clear - decreased BS on the left , no respiratory distress, no accessory muscle use Cardiovascular: normal rate, regular rhythm Abdomen: normal bowel sounds, soft, non tender - obese Genitourinary: normal external genitalia Extremities: no edema, pedal pulses normal Neurologic/Psychiatric: no motor/sensory deficits, alert, oriented x 3, responsive Musculoskeletal: normal muscle bulk Microbiology Date/Time Source Procedure Growth Status 12/06/16 16:00 Other Fluid Gram Stain - Final Resulted 12/06/16 16:00 Other Fluid Body Fluid Culture - Preliminary NO GROWTH AFTER 24 HOURS Resulted Laboratory Tests 12/08/16 08:40: White Blood Count 14.3H, Red Blood Count 4.10L, Hemoglobin 11.7L, Hematocrit 35.7L, Mean Corpuscular Volume 87, Mean Corpuscular Hemoglobin 28.7, Mean Corpuscular Hemoglobin Concent 32.9, Red Cell Distribution Width 11.8, Platelet Count 494H, Mean Platelet Volume 6.1L, Neutrophils (%) (Auto) 73.4, Lymphocytes (%) (Auto) 16.7L, Monocytes (%) (Auto) 7.7, Eosinophils (%) (Auto) 1.6, Basophils (%) (Auto) 0.6, Sodium Level 136, Potassium Level 3.6, Chloride Level 94L, Carbon Dioxide Level 31H, Anion Gap 11, Blood Urea Nitrogen 10, Creatinine 0.6, Estimat Glomerular Filtration Rate > 60, Glucose Level 150H, Calcium Level 8.5L, Thyroid Stimulating Hormone (TSH) 1.460, Free Thyroxine 1.25, Free Triiodothyronine 2.5 Current Medications Medications (Trade) Dose Ordered Sig/Ok Route PRN Reason Start Time Stop Time Status Last Admin Dose Admin Acetaminophen (Tylenol) 650 mg Q4H PRN ORAL fever 12/03/16 06:15 01/02/17 06:14 12/04/16 17:10 Al Hydroxide/Mg Hydroxide (Mylanta II) 30 ml Q6H PRN ORAL dyspepsia 12/03/16 06:15 01/02/17 06:14 Carbamazepine (TEGretol XR) 200 mg DAILY ORAL 12/03/16 09:00 01/02/17 08:59 12/08/16 08:56 Ciprofloxacin (Cipro 500mg tab) 500 mg EVERY 12 HOURS ORAL 12/08/16 21:00 01/03/17 20:59 UNV Dextrose (Dextrose 50%) STAT PRN IV Hypoglycemia 12/03/16 13:45 01/02/17 13:44 Doxycycline Monohydrate (Vibramycin) 100 mg EVERY 12 HOURS ORAL 12/08/16 21:00 01/03/17 20:59 UNV Heparin Sodium (Porcine) (Heparin 5000 units/ml) 5,000 units EVERY 12 HOURS SUBQ 12/03/16 09:00 01/02/17 08:59 Heparin Sodium/ Sodium Chloride (Heparin 2000 units/Ns 1000ml premix) 2,000 unit ONCE PRN INJ PICC PLACEMENT 12/10/16 09:00 12/10/16 23:59 Hydromorphone HCl (Dilaudid) 1.5 mg Q4H PRN IVP severe pain 12/06/16 08:45 12/13/16 08:44 12/07/16 09:41 Insulin Aspart (NovoLOG) BEFORE MEALS AND HS SUBQ 12/03/16 16:30 01/02/17 16:29 12/04/16 17:15 Lidocaine (Lidoderm 5% PATCH) 1 patch Q24H TDERMAL 12/05/16 21:00 01/04/17 20:59 12/07/16 22:02 Lidocaine HCl (Xylocaine 1% 30ml) 30 ml ONCE PRN INJ PICC PLACEMENT 12/10/16 09:00 12/10/16 23:59 Metronidazole (Flagyl) 500 mg Q8HR ORAL 12/08/16 22:00 01/03/17 21:59 UNV Nitroglycerin (Ntg) 0.4 mg Q5M PRN SL Prn Chest Pain 12/03/16 06:15 01/02/17 06:14 Ondansetron HCl (Zofran) 4 mg Q6H PRN IVP Nausea & Vomiting 12/03/16 06:15 01/02/17 06:14 12/07/16 11:29 Oxycodone/ Acetaminophen (Percocet 10/325) 1 tab Q6H PRN ORAL moderate pain 12/06/16 08:30 12/13/16 08:29 12/08/16 11:11 Polyethylene Glycol (Miralax) 17 gm DAILYPRN PRN ORAL Constipation 12/03/16 06:15 01/02/17 06:14 Pregabalin (Lyrica) 150 mg THREE TIMES A DAY ORAL 12/06/16 09:00 01/05/17 08:59 12/08/16 13:56 Promethazine HCl/ Codeine (Phenergan with Codeine) 5 ml Q4H PRN ORAL For Cough 12/03/16 06:15 01/02/17 06:14 Sodium Bicarbonate (Sodium Bicarbonate) 50 ml ONCE PRN IV PICC PLACEMENT 12/10/16 06:00 12/10/16 23:59 Temazepam (Restoril) 15 mg HSPRN PRN ORAL Insomnia 12/03/16 06:15 12/10/16 06:14 Vancomycin HCl (Vanco rx to dose) 1 ea DAILY PRN MISC Per rx protocol 12/03/16 06:15 01/02/17 06:14 Kayden (Miri)Mona NP Dec 08, 2016 16:26
[2016-12-08 19:00] VITALS: BP 120/71
[2016-12-08] MEDS: Ciprofloxacin 500mg tab ORAL SCH (20:14)
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
--- NOTE | 2016-12-08 22:58 | Consultation ---
DATE OF CONSULTATION: 12/07/2016 HEMATOLOGY/ONCOLOGY CONSULTATION CONSULTING PHYSICIAN: Anselmo Cronin M.D. REFERRING PHYSICIAN: Aidan Melara D.O. REASON FOR CONSULTATION: Evaluation of thyroid mass and possible thyroid mass. HISTORY OF PRESENT ILLNESS: The patient is a pleasant 46-year-old female with a past medical history of , bipolar disorder, diabetes mellitus, [facility] with complaints of left-sided chest pain due to pneumonia, pleural effusion. She had a thoracentesis, which was performed. She was found on admission to be positive for cocaine and amphetamine use. She had low back pain. Pain was 10/10. She was noted to have a thyroid mass that was noted upon ultrasound on the right lower lobe as well as thrombocytosis, platelet count 494,000 and leukocytosis of 14.3. Hematology Service was consulted for further evaluation and treatment. PAST MEDICAL HISTORY: Bipolar disorder and diabetes mellitus. PAST SURGICAL HISTORY: , tubal ligation, collapsed lung, appendectomy, and knee surgery. MEDICATIONS: Flexeril, ferrous sulfate, Neurontin, Tegretol, Dilaudid, Motrin, meloxicam, Prilosec, Tylenol Extra-Strength, albuterol, Benadryl, and Zofran. ALLERGIES: Penicillin. SOCIAL HISTORY: Cocaine use in the past and amphetamine use. REVIEW OF SYSTEMS: Constitutional: No fever, chills, or night sweats. Skin: No rashes, lumps, or itching. HEENT: No headache, hearing, or vision changes. Breasts: No lumps, pain, or discharge. Pulmonary: No cough, sputum, or shortness of breath. Cardiovascular: No chest pain, tightness, or palpitations. Gastrointestinal: No nausea, vomiting, or diarrhea. Genitourinary: No dysuria, frequency, or urgency. Musculoskeletal: No joint swelling, muscle pain, or trauma. PHYSICAL EXAMINATION: GENERAL: The patient is in no acute distress. VITAL SIGNS: Temperature 96.6 degrees Fahrenheit, pulse 96, respiratory rate 20, blood pressure 123/83, and pulse oximetry 94% on room air. PULMONARY: Decreased breath sounds bilaterally. CARDIOVASCULAR: Regular rate and rhythm. No S3 or S4. ABDOMEN: Soft, nontender, and nondistended. EXTREMITIES: A 1+ edema. LABORATORY DATA: WBC 14.2, hemoglobin 11.7, hematocrit 36, and platelet count 494,000. BUN of 10 and creatinine of 0.6. INR 1.1. negative. ASSESSMENT: 1. Thyroid mass 3.2 x 1.9 cm, corresponding to recent mass on CT scan, it is solid, likely slightly hypoechoic as compared to thyroid parenchyma. Considered to obtain TSH as well as biopsy. Order has been placed. 2. Thrombocytosis, . 3. Coronary artery disease . 4. Leukocytosis, likely secondary to sepsis, septic shock, now improved. 5. Pleural effusion secondary to pneumonia. 6. Pneumonia, complicated with loculated pleural effusion without antibiotics drug abuse. RECOMMENDATIONS: 1. hemoglobin go about 7. 2. Obtain peripheral smear. 3. Obtain TSH, T4, and T3. 4. Consider to obtain ultrasound-guided biopsy. 5. ID is to follow up on ID . 6. Antibiotics as needed. 7. Pain control. 8. DVT prophylaxis with heparin. 9. GI prophylaxis as needed. 10. . Thank you Dr. Harley Melara, for this kind referral. Please do not hesitate to contact me with any further questions. Anselmo Cronin M.D. DR: MAURILIO JOB#: [id number] CC:
[2016-12-09] VITALS: BP 110/73
[2016-12-09 04:00] VITALS: BP 111/72
[2016-12-09] MEDS: metroNIDAZOLE 500mg tab ORAL SCH ×3 (05:05→21:34)
[2016-12-09 06:29] LABS: BASOPHILS % (AUTO) 0.7 % (0.0-2.0); EOSINOPHILS % (AUTO) 2.4 % (0.0-3.0); LYMPHOCYTES % (AUTO) 12.2 % (20.0-45.0); MEAN CORPUSCULAR HEMOGLOBIN 28.5 PG (27.0-31.0); MEAN CORPUSCULAR HGB CONC 32.5 G/DL (32.0-36.0); MEAN CORPUSCULAR VOLUME 88 FL (80-99); MEAN PLATELET VOLUME 6.3 FL (6.5-10.1); MONOCYTES % (AUTO) 9.3 % (1.0-10.0); NEUTROPHILS % (AUTO) 75.3 % (45.0-75.0); PLATELET COUNT 456 K/UL (150-450); RED BLOOD COUNT 3.97 M/UL (4.20-5.40)
[2016-12-09] MEDS: NovoLOG Insulin Flexpen SUBQ SCH ×4 (06:30→20:26)
[2016-12-09 07:52] LABS: ANION GAP 13 (5-15); CALCIUM 8.2 mg/dL (8.6-10.2); CARBON DIOXIDE 30 mEQ/L (20-30); CHLORIDE 93 mEQ/L (98-107); CREATININE 0.6 mg/dL (0.5-0.9); GLOMERULAR FILTRATION RATE > 60 mL/min (>60); HEMOLYSIS 1; POTASSIUM 3.8 mEQ/L (3.4-4.9); SODIUM 136 mEQ/L (135-145)
[2016-12-09 08:00] VITALS: BP 139/77
--- NOTE | 2016-12-09 08:09 | General Progress Note ---
Assessment/Plan Problem List: (1) Sepsis ICD Codes: A41.9 - Sepsis, unspecified organism SNOMED: 75950755, [id number] Qualifiers: Qualified Codes: A41.9 - Sepsis, unspecified organism (2) Pneumonia ICD Codes: J18.9 - Pneumonia, unspecified organism SNOMED: 656935518 Qualifiers: Qualified Codes: J18.9 - Pneumonia, unspecified organism (3) UTI (urinary tract infection) ICD Codes: N39.0 - Urinary tract infection, site not specified SNOMED: 62281232 (4) Pleural effusion ICD Codes: J90 - Pleural effusion, not elsewhere classified SNOMED: 75422622 Status: stable, progressing, tolerating diet Assessment/Plan o2 pulm tx abx cbc bmp am dc plan Subjective Constitutional: Reports: weakness Allergies: Coded Allergies: AMOXICILLIN (Verified Allergy, Mild, 06/28/15) ASPIRIN (Verified Allergy, Mild, 06/28/15) SALICYLATES (Verified Allergy, Mild, 06/28/15) All Systems: reviewed and negative except above Subjective o2nc sleepy s/p thorocentesis Objective Last 24 Hour Vital Signs Date Time Temp Pulse Resp B/P Pulse Ox O2 Delivery O2 Flow Rate FiO2 12/09/16 04:04 98.2 12/09/16 04:00 97.2 85 20 111/72 93 Nasal Cannula 2.0 12/09/16 00:00 98.2 92 22 110/73 92 Nasal Cannula 2.0 12/08/16 19:25 Nasal Cannula 3.0 32 12/08/16 19:25 92 Nasal Cannula 3.0 12/08/16 19:00 97.9 88 20 120/71 Room Air 12/08/16 16:00 98.2 91 20 114/71 95 Room Air 12/08/16 14:55 97.7 12/08/16 11:08 97.7 94 22 105/63 90 Room Air Intake and Output 12/08/16 12/09/16 19:00 07:00 Intake Total 540 ml Balance 540 ml Intake Oral 540 ml # Voids 3 6 # Bowel Movements 1 Laboratory Tests 12/08/16 08:40: White Blood Count 14.3H, Red Blood Count 4.10L, Hemoglobin 11.7L, Hematocrit 35.7L, Mean Corpuscular Volume 87, Mean Corpuscular Hemoglobin 28.7, Mean Corpuscular Hemoglobin Concent 32.9, Red Cell Distribution Width 11.8, Platelet Count 494H, Mean Platelet Volume 6.1L, Neutrophils (%) (Auto) 73.4, Lymphocytes (%) (Auto) 16.7L, Monocytes (%) (Auto) 7.7, Eosinophils (%) (Auto) 1.6, Basophils (%) (Auto) 0.6, Sodium Level 136, Potassium Level 3.6, Chloride Level 94L, Carbon Dioxide Level 31H, Anion Gap 11, Blood Urea Nitrogen 10, Creatinine 0.6, Estimat Glomerular Filtration Rate > 60, Glucose Level 150H, Calcium Level 8.5L, Thyroid Stimulating Hormone (TSH) 1.460, Free Thyroxine 1.25, Free Triiodothyronine 2.5 12/09/16 04:45: White Blood Count 16.0H, Red Blood Count 3.97L, Hemoglobin 11.3L, Hematocrit 34.8L, Mean Corpuscular Volume 88, Mean Corpuscular Hemoglobin 28.5, Mean Corpuscular Hemoglobin Concent 32.5, Red Cell Distribution Width 12.0, Platelet Count 456H, Mean Platelet Volume 6.3L, Neutrophils (%) (Auto) 75.3H, Lymphocytes (%) (Auto) 12.2L, Monocytes (%) (Auto) 9.3, Eosinophils (%) (Auto) 2.4, Basophils (%) (Auto) 0.7, Sodium Level 136, Potassium Level 3.8, Chloride Level 93L, Carbon Dioxide Level 30, Anion Gap 13, Blood Urea Nitrogen 11, Creatinine 0.6, Estimat Glomerular Filtration Rate > 60, Glucose Level 112H, Calcium Level 8.2L Height (Feet): 5 Height (Inches): 6.00 Weight (Pounds): 220 General Appearance: lethargic EENT: normal ENT inspection Neck: normal alignment Cardiovascular: normal peripheral pulses, normal rate, regular rhythm Respiratory/Chest: chest wall non-tender, lungs clear, decreased breath sounds Abdomen: normal bowel sounds, non tender, soft Extremities: normal inspection Edema: no edema noted Arm (L), no edema noted Arm (R), no edema noted Leg (L), no edema noted Leg (R), no edema noted Pedal (L), no edema noted Pedal (R), no edema noted Generalized Neurologic: responsive, motor weakness Skin: normal pigmentation, warm/dry MARIZOL MAGUIRE Dec 09, 2016 08:09
--- NOTE | 2016-12-09 08:37 | General Progress Note ---
Assessment/Plan Assessment/Plan (1) Polysubstance abuse (2) Chest wall pain due to pneumonia and pleural effusion (3) Lumbar DDD (4) Lumbar Spondylosis (5) Lumbar Radiculopathy We will continue Dilaudid, Percocet and Lyrica. The patient was discussed with Dr. Castellano and Dr. Castellano concurred. Subjective Date patient seen: Dec 09, 2016 Time patient seen: 08:15 - am Allergies: Coded Allergies: AMOXICILLIN (Verified Allergy, Mild, 06/28/15) ASPIRIN (Verified Allergy, Mild, 06/28/15) SALICYLATES (Verified Allergy, Mild, 06/28/15) Subjective REVIEW OF SYSTEMS: Denies rash, fever, chills, sweating, dizziness, drowsiness, blurred vision, sore throat, or change in weight. No bowel or bladder incontinence. She is complaining of left-sided chest wall pain and back pain. SUBJECTIVE: Her pain has been at a stable 6/10 on the medications. She is comfortable in bed in no acute distress. Objective Last 24 Hour Vital Signs Date Time Temp Pulse Resp B/P Pulse Ox O2 Delivery O2 Flow Rate FiO2 12/09/16 04:04 98.2 12/09/16 04:00 97.2 85 20 111/72 93 Nasal Cannula 2.0 12/09/16 00:00 98.2 92 22 110/73 92 Nasal Cannula 2.0 12/08/16 19:25 Nasal Cannula 3.0 32 12/08/16 19:25 92 Nasal Cannula 3.0 12/08/16 19:00 97.9 88 20 120/71 Room Air 12/08/16 16:00 98.2 91 20 114/71 95 Room Air 12/08/16 14:55 97.7 12/08/16 11:08 97.7 94 22 105/63 90 Room Air Intake and Output 12/08/16 12/09/16 19:00 07:00 Intake Total 540 ml Balance 540 ml Intake Oral 540 ml # Voids 3 6 # Bowel Movements 1 Laboratory Tests 12/08/16 08:40: White Blood Count 14.3H, Red Blood Count 4.10L, Hemoglobin 11.7L, Hematocrit 35.7L, Mean Corpuscular Volume 87, Mean Corpuscular Hemoglobin 28.7, Mean Corpuscular Hemoglobin Concent 32.9, Red Cell Distribution Width 11.8, Platelet Count 494H, Mean Platelet Volume 6.1L, Neutrophils (%) (Auto) 73.4, Lymphocytes (%) (Auto) 16.7L, Monocytes (%) (Auto) 7.7, Eosinophils (%) (Auto) 1.6, Basophils (%) (Auto) 0.6, Sodium Level 136, Potassium Level 3.6, Chloride Level 94L, Carbon Dioxide Level 31H, Anion Gap 11, Blood Urea Nitrogen 10, Creatinine 0.6, Estimat Glomerular Filtration Rate > 60, Glucose Level 150H, Calcium Level 8.5L, Thyroid Stimulating Hormone (TSH) 1.460, Free Thyroxine 1.25, Free Triiodothyronine 2.5 12/09/16 04:45: White Blood Count 16.0H, Red Blood Count 3.97L, Hemoglobin 11.3L, Hematocrit 34.8L, Mean Corpuscular Volume 88, Mean Corpuscular Hemoglobin 28.5, Mean Corpuscular Hemoglobin Concent 32.5, Red Cell Distribution Width 12.0, Platelet Count 456H, Mean Platelet Volume 6.3L, Neutrophils (%) (Auto) 75.3H, Lymphocytes (%) (Auto) 12.2L, Monocytes (%) (Auto) 9.3, Eosinophils (%) (Auto) 2.4, Basophils (%) (Auto) 0.7, Sodium Level 136, Potassium Level 3.8, Chloride Level 93L, Carbon Dioxide Level 30, Anion Gap 13, Blood Urea Nitrogen 11, Creatinine 0.6, Estimat Glomerular Filtration Rate > 60, Glucose Level 112H, Calcium Level 8.2L Height (Feet): 5 Height (Inches): 6.00 Weight (Pounds): 220 Objective PHYSICAL EXAMINATION: GENERAL: Alert, awake, and oriented. HEENT: PERRLA. NECK: Range of motion is decreased due to the patient's clinical condition. LUNGS: Decreased breath sounds bilaterally. HEART: S1 and S2, regular. ABDOMEN: Obese. BACK: Range of motion is decreased due to the patient's pain and condition. EXTREMITIES: No cyanosis, clubbing or edema. NEURO: No changes HARSH SCOTT Dec 09, 2016 08:37
--- NOTE | 2016-12-09 08:51 | General Progress Note ---
Assessment/Plan Problem List: (1) Hyperglycemia ICD Codes: R73.9 - Hyperglycemia, unspecified SNOMED: 19561983 (2) Thyroid mass ICD Codes: E07.9 - Disorder of thyroid, unspecified SNOMED: 809544476 (3) CAP (community acquired pneumonia) ICD Codes: J18.9 - Pneumonia, unspecified organism SNOMED: 177702187 (4) Pleural effusion ICD Codes: J90 - Pleural effusion, not elsewhere classified SNOMED: 30250686 Assessment/Plan thyroid function is normal 3.2 cm right thyroid lobe lower pole mass has indication for FNA under ultrasound guidance - ordered Subjective Allergies: Coded Allergies: AMOXICILLIN (Verified Allergy, Mild, 06/28/15) ASPIRIN (Verified Allergy, Mild, 06/28/15) SALICYLATES (Verified Allergy, Mild, 06/28/15) All Systems: reviewed and negative except above Subjective events noted - interval notes reviewed Objective Last 24 Hour Vital Signs Date Time Temp Pulse Resp B/P Pulse Ox O2 Delivery O2 Flow Rate FiO2 12/09/16 04:04 98.2 12/09/16 04:00 97.2 85 20 111/72 93 Nasal Cannula 2.0 12/09/16 00:00 98.2 92 22 110/73 92 Nasal Cannula 2.0 12/08/16 19:25 Nasal Cannula 3.0 32 12/08/16 19:25 92 Nasal Cannula 3.0 12/08/16 19:00 97.9 88 20 120/71 Room Air 12/08/16 16:00 98.2 91 20 114/71 95 Room Air 12/08/16 14:55 97.7 12/08/16 11:08 97.7 94 22 105/63 90 Room Air Intake and Output 12/08/16 12/09/16 19:00 07:00 Intake Total 540 ml Balance 540 ml Intake Oral 540 ml # Voids 3 6 # Bowel Movements 1 Laboratory Tests 12/09/16 04:45: White Blood Count 16.0H, Red Blood Count 3.97L, Hemoglobin 11.3L, Hematocrit 34.8L, Mean Corpuscular Volume 88, Mean Corpuscular Hemoglobin 28.5, Mean Corpuscular Hemoglobin Concent 32.5, Red Cell Distribution Width 12.0, Platelet Count 456H, Mean Platelet Volume 6.3L, Neutrophils (%) (Auto) 75.3H, Lymphocytes (%) (Auto) 12.2L, Monocytes (%) (Auto) 9.3, Eosinophils (%) (Auto) 2.4, Basophils (%) (Auto) 0.7, Sodium Level 136, Potassium Level 3.8, Chloride Level 93L, Carbon Dioxide Level 30, Anion Gap 13, Blood Urea Nitrogen 11, Creatinine 0.6, Estimat Glomerular Filtration Rate > 60, Glucose Level 112H, Calcium Level 8.2L Height (Feet): 5 Height (Inches): 6.00 Weight (Pounds): 220 General Appearance: no apparent distress EENT: TMs normal Neck: normal alignment Cardiovascular: normal peripheral pulses Respiratory/Chest: decreased breath sounds Pelvis: normal external exam Objective Current Medications Medications (Trade) Dose Ordered Sig/Ok Route PRN Reason Start Time Stop Time Status Last Admin Dose Admin Acetaminophen (Tylenol) 650 mg Q4H PRN ORAL fever 12/03/16 06:15 01/02/17 06:14 12/04/16 17:10 Al Hydroxide/Mg Hydroxide (Mylanta II) 30 ml Q6H PRN ORAL dyspepsia 12/03/16 06:15 01/02/17 06:14 Carbamazepine (TEGretol XR) 200 mg DAILY ORAL 12/03/16 09:00 01/02/17 08:59 12/08/16 08:56 Ciprofloxacin (Cipro 500mg tab) 500 mg EVERY 12 HOURS ORAL 12/08/16 21:00 01/03/17 20:59 12/08/16 20:14 Dextrose (Dextrose 50%) STAT PRN IV Hypoglycemia 12/03/16 13:45 01/02/17 13:44 Doxycycline Monohydrate (Vibramycin) 100 mg EVERY 12 HOURS ORAL 12/08/16 21:00 01/03/17 20:59 12/08/16 20:14 Heparin Sodium (Porcine) (Heparin 5000 units/ml) 5,000 units EVERY 12 HOURS SUBQ 12/03/16 09:00 01/02/17 08:59 Heparin Sodium/ Sodium Chloride (Heparin 2000 units/Ns 1000ml premix) 2,000 unit ONCE PRN INJ PICC PLACEMENT 12/10/16 09:00 12/10/16 23:59 Hydromorphone HCl (Dilaudid) 1.5 mg Q4H PRN IVP severe pain 12/06/16 08:45 12/13/16 08:44 12/07/16 09:41 Insulin Aspart (NovoLOG) BEFORE MEALS AND HS SUBQ 12/03/16 16:30 01/02/17 16:29 12/04/16 17:15 Lidocaine (Lidoderm 5% PATCH) 1 patch Q24H TDERMAL 12/05/16 21:00 01/04/17 20:59 12/07/16 22:02 Lidocaine HCl (Xylocaine 1% 30ml) 30 ml ONCE PRN INJ PICC PLACEMENT 12/10/16 09:00 12/10/16 23:59 Metronidazole (Flagyl) 500 mg Q8HR ORAL 12/08/16 22:00 01/03/17 21:59 12/09/16 05:05 Nitroglycerin (Ntg) 0.4 mg Q5M PRN SL Prn Chest Pain 12/03/16 06:15 01/02/17 06:14 Ondansetron HCl (Zofran) 4 mg Q6H PRN IVP Nausea & Vomiting 12/03/16 06:15 01/02/17 06:14 12/07/16 11:29 Oxycodone/ Acetaminophen (Percocet 10/325) 1 tab Q6H PRN ORAL moderate pain 12/06/16 08:30 12/13/16 08:29 12/09/16 03:05 Polyethylene Glycol (Miralax) 17 gm DAILYPRN PRN ORAL Constipation 12/03/16 06:15 01/02/17 06:14 Pregabalin (Lyrica) 150 mg THREE TIMES A DAY ORAL 12/06/16 09:00 01/05/17 08:59 12/08/16 17:38 Promethazine HCl/ Codeine (Phenergan with Codeine) 5 ml Q4H PRN ORAL For Cough 12/03/16 06:15 01/02/17 06:14 Sodium Bicarbonate (Sodium Bicarbonate) 50 ml ONCE PRN IV PICC PLACEMENT 12/10/16 06:00 12/10/16 23:59 Temazepam (Restoril) 15 mg HSPRN PRN ORAL Insomnia 12/03/16 06:15 12/10/16 06:14 Item Value Date Time Glucose Level 112 mg/dL H 12/09/16 0445 Glucose Level 150 mg/dL H 12/08/16 0840 Bedside Blood Glucose 117 mg/dl 12/08/16 1630 JOVANY HOFFMAN Dec 09, 2016 08:51
[2016-12-09] MEDS: Heparin 5000 units/ml inj SUBQ SCH ×2 (09:00→20:26)
[2016-12-09] MEDS: Lyrica 75mg cap ORAL SCH ×3 (09:04→17:50)
[2016-12-09] MEDS: Ciprofloxacin 500mg tab ORAL SCH ×2 (09:05→20:34)
[2016-12-09] MEDS: carBAMazepine XR 200mg tab ORAL SCH (09:05)
[2016-12-09 12:00] VITALS: BP 127/75
--- NOTE | 2016-12-09 13:21 | Pulmonology Progress Note ---
Assessment/Plan Assessment/Plan ASSESSMENT pneumonia left loculated parapneumonic pleural effusion s/p thoracentesis ( incomplete) -800cc elevated D dimer thyroid nodule amphetamine abuse DM PLAN OF CARE MS floor isolation abx ID follows blood cx negative need sputum cx s/p thoracentesis ( incomplete ), loculated pleural effusion -only 800 cc obtained culture of pleural fluid preliminary negative thoracic surgery eval noted and appreciated surgeon recommend left VATS for washout CTA no gross evidence of central PE , revealed consolidation and atelectasis Left lobe as well as thyroid nodule thyroid US noted will need biopsy of thyroid nodule to further discern BS management with SS of insulin DVT prophylaxis case discussed and evaluated by supervising physician Subjective Allergies: Coded Allergies: CITRUS AND DERIVATIVES (Verified Allergy, Intermediate, Hives, 12/09/16) AMOXICILLIN (Verified Allergy, Mild, 06/28/15) ASPIRIN (Verified Allergy, Mild, 06/28/15) SALICYLATES (Verified Allergy, Mild, 06/28/15) Bumble Bee (Verified Allergy, Unknown, Hives, 12/09/16) Subjective leukocytosis with trend up today, afebrile on RA pulse ox stable denies SOB, cough, seen and evaluated by CT subregion dr Richardson Objective Last 24 Hour Vital Signs Date Time Temp Pulse Resp B/P Pulse Ox O2 Delivery O2 Flow Rate FiO2 12/09/16 12:00 98.1 100 20 127/75 93 Room Air 12/09/16 10:03 98.2 12/09/16 10:03 98.2 12/09/16 08:00 100.0 98 18 139/77 92 Room Air 12/09/16 07:08 93 Nasal Cannula 3.0 12/09/16 07:08 Nasal Cannula 3.0 12/09/16 04:00 97.2 85 20 111/72 93 Nasal Cannula 2.0 12/09/16 00:00 98.2 92 22 110/73 92 Nasal Cannula 2.0 12/08/16 19:25 Nasal Cannula 3.0 32 12/08/16 19:25 92 Nasal Cannula 3.0 12/08/16 19:00 97.9 88 20 120/71 Room Air 12/08/16 16:00 98.2 91 20 114/71 95 Room Air Intake and Output 12/08/16 12/09/16 19:00 07:00 Intake Total 540 ml Balance 540 ml Intake Oral 540 ml # Voids 3 6 # Bowel Movements 1 Objective General Appearance: no acute distress HEENT: normocephalic, atraumatic, anicteric, mucous membranes moist Respiratory/Chest: lungs clear - decreased BS on the left , no respiratory distress, no accessory muscle use Cardiovascular: normal rate, regular rhythm Abdomen: normal bowel sounds, soft, non tender - obese Genitourinary: normal external genitalia Extremities: no edema, pedal pulses normal Neurologic/Psychiatric: no motor/sensory deficits, alert, oriented x 3, responsive Musculoskeletal: normal muscle bulk Microbiology Date/Time Source Procedure Growth Status 12/06/16 16:00 Other Fluid Gram Stain - Final Resulted 12/06/16 16:00 Other Fluid Body Fluid Culture - Preliminary NO GROWTH AFTER 48 HOURS Resulted Laboratory Tests 12/09/16 04:45: White Blood Count 16.0H, Red Blood Count 3.97L, Hemoglobin 11.3L, Hematocrit 34.8L, Mean Corpuscular Volume 88, Mean Corpuscular Hemoglobin 28.5, Mean Corpuscular Hemoglobin Concent 32.5, Red Cell Distribution Width 12.0, Platelet Count 456H, Mean Platelet Volume 6.3L, Neutrophils (%) (Auto) 75.3H, Lymphocytes (%) (Auto) 12.2L, Monocytes (%) (Auto) 9.3, Eosinophils (%) (Auto) 2.4, Basophils (%) (Auto) 0.7, Sodium Level 136, Potassium Level 3.8, Chloride Level 93L, Carbon Dioxide Level 30, Anion Gap 13, Blood Urea Nitrogen 11, Creatinine 0.6, Estimat Glomerular Filtration Rate > 60, Glucose Level 112H, Calcium Level 8.2L Current Medications Medications (Trade) Dose Ordered Sig/Ok Route PRN Reason Start Time Stop Time Status Last Admin Dose Admin Acetaminophen (Tylenol) 650 mg Q4H PRN ORAL fever 12/03/16 06:15 01/02/17 06:14 12/04/16 17:10 Al Hydroxide/Mg Hydroxide (Mylanta II) 30 ml Q6H PRN ORAL dyspepsia 12/03/16 06:15 01/02/17 06:14 Carbamazepine (TEGretol XR) 200 mg DAILY ORAL 12/03/16 09:00 01/02/17 08:59 12/09/16 09:05 Ciprofloxacin (Cipro 500mg tab) 500 mg EVERY 12 HOURS ORAL 12/08/16 21:00 01/03/17 20:59 12/09/16 09:05 Dextrose (Dextrose 50%) STAT PRN IV Hypoglycemia 12/03/16 13:45 01/02/17 13:44 Doxycycline Monohydrate (Vibramycin) 100 mg EVERY 12 HOURS ORAL 12/08/16 21:00 01/03/17 20:59 12/09/16 09:04 Heparin Sodium (Porcine) (Heparin 5000 units/ml) 5,000 units EVERY 12 HOURS SUBQ 12/03/16 09:00 01/02/17 08:59 Heparin Sodium/ Sodium Chloride (Heparin 2000 units/Ns 1000ml premix) 2,000 unit ONCE PRN INJ PICC PLACEMENT 12/10/16 09:00 12/10/16 23:59 Hydromorphone HCl (Dilaudid) 1.5 mg Q4H PRN IVP severe pain 12/06/16 08:45 12/13/16 08:44 12/07/16 09:41 Insulin Aspart (NovoLOG) BEFORE MEALS AND HS SUBQ 12/03/16 16:30 01/02/17 16:29 12/04/16 17:15 Lidocaine (Lidoderm 5% PATCH) 1 patch Q24H TDERMAL 12/05/16 21:00 01/04/17 20:59 12/07/16 22:02 Lidocaine HCl (Xylocaine 1% 30ml) 30 ml ONCE PRN INJ PICC PLACEMENT 12/10/16 09:00 12/10/16 23:59 Metronidazole (Flagyl) 500 mg Q8HR ORAL 12/08/16 22:00 01/03/17 21:59 12/09/16 05:05 Nitroglycerin (Ntg) 0.4 mg Q5M PRN SL Prn Chest Pain 12/03/16 06:15 01/02/17 06:14 Ondansetron HCl (Zofran) 4 mg Q6H PRN IVP Nausea & Vomiting 12/03/16 06:15 01/02/17 06:14 12/07/16 11:29 Oxycodone/ Acetaminophen (Percocet 10/325) 1 tab Q6H PRN ORAL moderate pain 12/06/16 08:30 12/13/16 08:29 12/09/16 09:05 Polyethylene Glycol (Miralax) 17 gm DAILYPRN PRN ORAL Constipation 12/03/16 06:15 01/02/17 06:14 Pregabalin (Lyrica) 150 mg THREE TIMES A DAY ORAL 12/06/16 09:00 01/05/17 08:59 12/09/16 09:04 Promethazine HCl/ Codeine (Phenergan with Codeine) 5 ml Q4H PRN ORAL For Cough 12/03/16 06:15 01/02/17 06:14 Sodium Bicarbonate (Sodium Bicarbonate) 50 ml ONCE PRN IV PICC PLACEMENT 12/10/16 06:00 12/10/16 23:59 Temazepam (Restoril) 15 mg HSPRN PRN ORAL Insomnia 12/03/16 06:15 12/10/16 06:14 Kayden ([facility])Mona NP Dec 09, 2016 13:21
[2016-12-09] MEDS ORDERED: DuoNeb 0.5-3(2.5)mg/3ml neb HHN PRN (13:30)
--- NOTE | 2016-12-09 13:45 | General Progress Note ---
Assessment/Plan Assessment/Plan ASSESSMENT: 1. Thyroid mass 3.2 x 1.9 cm, corresponding to recent mass on CT scan, it is solid, likely slightly hypoechoic as compared to thyroid parenchyma. Obtain bx 2. Thrombocytosis, likely reactive process 3. Anemia 2/2 chronic disease 4. Leukocytosis, likely secondary to sepsis, septic shock, has now improved. 5. Pleural effusion secondary to pneumonia. 6. Pneumonia, complicated with loculated pleural effusion RECOMMENDATIONS: 1. Transfuse to hemoglobin >7. 2. Obtain peripheral smear. 3. Endo recs 4. To Obtain a FNA bx 5. Followup on ID recs 6. Antibiotics as needed. 7. Pain control. 8. DVT prophylaxis with heparin. 9. GI prophylaxis as needed. 10. staff Thank you, Anselmo Cronin MD Subjective Constitutional: Reports: no symptoms HEENT: Reports: no symptoms Cardiovascular: Reports: no symptoms Respiratory: Reports: no symptoms Gastrointestinal/Abdominal: Reports: poor appetite Genitourinary: Reports: no symptoms Neurologic/Psychiatric: Reports: no symptoms Endocrine: Reports: no symptoms Hematologic/Lymphatic: Reports: anemia Allergies: Coded Allergies: CITRUS AND DERIVATIVES (Verified Allergy, Intermediate, Hives, 12/09/16) AMOXICILLIN (Verified Allergy, Mild, 06/28/15) ASPIRIN (Verified Allergy, Mild, 06/28/15) SALICYLATES (Verified Allergy, Mild, 06/28/15) Bumble Bee (Verified Allergy, Unknown, Hives, 12/09/16) Subjective stable, no fevers or chills reported, no hematochezia Objective Last 24 Hour Vital Signs Date Time Temp Pulse Resp B/P Pulse Ox O2 Delivery O2 Flow Rate FiO2 12/09/16 12:00 98.1 100 20 127/75 93 Room Air 12/09/16 10:03 98.2 12/09/16 10:03 98.2 12/09/16 08:00 100.0 98 18 139/77 92 Room Air 12/09/16 07:08 93 Nasal Cannula 3.0 12/09/16 07:08 Nasal Cannula 3.0 12/09/16 04:00 97.2 85 20 111/72 93 Nasal Cannula 2.0 12/09/16 00:00 98.2 92 22 110/73 92 Nasal Cannula 2.0 12/08/16 19:25 Nasal Cannula 3.0 32 12/08/16 19:25 92 Nasal Cannula 3.0 12/08/16 19:00 97.9 88 20 120/71 Room Air 12/08/16 16:00 98.2 91 20 114/71 95 Room Air Intake and Output 12/08/16 12/09/16 19:00 07:00 Intake Total 540 ml Balance 540 ml Intake Oral 540 ml # Voids 3 6 # Bowel Movements 1 Laboratory Tests 12/09/16 04:45: White Blood Count 16.0H, Red Blood Count 3.97L, Hemoglobin 11.3L, Hematocrit 34.8L, Mean Corpuscular Volume 88, Mean Corpuscular Hemoglobin 28.5, Mean Corpuscular Hemoglobin Concent 32.5, Red Cell Distribution Width 12.0, Platelet Count 456H, Mean Platelet Volume 6.3L, Neutrophils (%) (Auto) 75.3H, Lymphocytes (%) (Auto) 12.2L, Monocytes (%) (Auto) 9.3, Eosinophils (%) (Auto) 2.4, Basophils (%) (Auto) 0.7, Sodium Level 136, Potassium Level 3.8, Chloride Level 93L, Carbon Dioxide Level 30, Anion Gap 13, Blood Urea Nitrogen 11, Creatinine 0.6, Estimat Glomerular Filtration Rate > 60, Glucose Level 112H, Calcium Level 8.2L Height (Feet): 5 Height (Inches): 6.00 Weight (Pounds): 220 General Appearance: no apparent distress EENT: TMs normal Neck: normal alignment Cardiovascular: regular rhythm Respiratory/Chest: lungs clear Abdomen: non tender Extremities: non-tender Edema: 1+ Leg (L), 1+ Leg (R) Edema: mild edema Neurologic: alert Skin: warm/dry Anselmo Cronin Dec 09, 2016 13:45
--- NOTE | 2016-12-09 14:25 | General Progress Note ---
Assessment/Plan Assessment/Plan ASSESSMENT: 1. Thyroid mass 3.2 x 1.9 cm, corresponding to recent mass on CT scan, it is solid, likely slightly hypoechoic as compared to thyroid parenchyma. Obtain bx 2. Thrombocytosis, likely reactive process 3. Anemia 2/2 chronic disease 4. Leukocytosis, likely secondary to sepsis, septic shock, has now improved. 5. Pleural effusion secondary to pneumonia. 6. Pneumonia, complicated with loculated pleural effusion RECOMMENDATIONS: 1. Maintain hemoglobin >7. 2. Obtain peripheral smear. 3. Endo recs to follow 4. Obtain a FNA bx 5. Followup on ID recs 6. Antibiotics as needed. 7. Pain control. 8. DVT prophylaxis with heparin. 9. GI prophylaxis as needed. 10. staff Thank you, Manuel Cronin MD Subjective Date patient seen: Dec 08, 2016 Constitutional: Reports: no symptoms HEENT: Reports: no symptoms Cardiovascular: Reports: no symptoms Respiratory: Reports: no symptoms Gastrointestinal/Abdominal: Reports: poor appetite Genitourinary: Reports: no symptoms Neurologic/Psychiatric: Reports: no symptoms Endocrine: Reports: no symptoms Hematologic/Lymphatic: Reports: anemia Allergies: Coded Allergies: CITRUS AND DERIVATIVES (Verified Allergy, Intermediate, Hives, 12/09/16) AMOXICILLIN (Verified Allergy, Mild, 06/28/15) ASPIRIN (Verified Allergy, Mild, 06/28/15) SALICYLATES (Verified Allergy, Mild, 06/28/15) Bumble Bee (Verified Allergy, Unknown, Hives, 12/09/16) Subjective stable, no events noted Objective Last 24 Hour Vital Signs Date Time Temp Pulse Resp B/P Pulse Ox O2 Delivery O2 Flow Rate FiO2 12/09/16 12:00 98.1 100 20 127/75 93 Room Air 12/09/16 10:03 98.2 12/09/16 10:03 98.2 12/09/16 08:00 100.0 98 18 139/77 92 Room Air 12/09/16 07:08 93 Nasal Cannula 3.0 12/09/16 07:08 Nasal Cannula 3.0 12/09/16 04:00 97.2 85 20 111/72 93 Nasal Cannula 2.0 12/09/16 00:00 98.2 92 22 110/73 92 Nasal Cannula 2.0 12/08/16 19:25 Nasal Cannula 3.0 32 12/08/16 19:25 92 Nasal Cannula 3.0 12/08/16 19:00 97.9 88 20 120/71 Room Air 12/08/16 16:00 98.2 91 20 114/71 95 Room Air Intake and Output 12/08/16 12/09/16 19:00 07:00 Intake Total 540 ml Balance 540 ml Intake Oral 540 ml # Voids 3 6 # Bowel Movements 1 Laboratory Tests 12/09/16 04:45: White Blood Count 16.0H, Red Blood Count 3.97L, Hemoglobin 11.3L, Hematocrit 34.8L, Mean Corpuscular Volume 88, Mean Corpuscular Hemoglobin 28.5, Mean Corpuscular Hemoglobin Concent 32.5, Red Cell Distribution Width 12.0, Platelet Count 456H, Mean Platelet Volume 6.3L, Neutrophils (%) (Auto) 75.3H, Lymphocytes (%) (Auto) 12.2L, Monocytes (%) (Auto) 9.3, Eosinophils (%) (Auto) 2.4, Basophils (%) (Auto) 0.7, Sodium Level 136, Potassium Level 3.8, Chloride Level 93L, Carbon Dioxide Level 30, Anion Gap 13, Blood Urea Nitrogen 11, Creatinine 0.6, Estimat Glomerular Filtration Rate > 60, Glucose Level 112H, Calcium Level 8.2L Height (Feet): 5 Height (Inches): 6.00 Weight (Pounds): 220 General Appearance: no apparent distress EENT: TMs normal Neck: supple Cardiovascular: regular rhythm Respiratory/Chest: lungs clear, no accessory muscle use Extremities: normal inspection Edema: 1+ Leg (L), 1+ Leg (R) Edema: mild edema Neurologic: alert Skin: warm/dry MANUEL CRONIN Dec 09, 2016 14:24
[2016-12-09 16:00] VITALS: BP 128/74
--- NOTE | 2016-12-09 19:57 | Infectious Diseases Prog Note ---
Assessment/Plan Problems: (1) Sepsis Assessment & Plan: with recurrent fever and elevated WBC, due to pneumonia and empyema, need surgical drainage , patient is still refusing , recommend psych eval , continue oral antibiotics for now , blood culture is negative (2) UTI (urinary tract infection) Assessment & Plan: on ciprofloxacin , culture was not done (3) Pleural effusion Assessment & Plan: loculated, S/P thoracentesis , fluids culture was negative , but it was done while she was on wide spectrum antibiotics , so will treat her as an empyema for 4 weeks from the date she had her thoracentesis , she was evaluated by thoracic surgery for possible decortication but she refused, she also refused IV antibiotics therapy too, but agreed to take oral, she understand the risk of refusing surgery and IV antibiotics therapy, all questions were answered , she is welling to proceed with oral treatment. recommend repeating CT scan of the chest in 4 weeks once she is done with her antibiotics therapy , D/W nurse and patient, and PCP (4) CAP (community acquired pneumonia) Assessment & Plan: complicated with loculated pleural effusion , S/P thoracentesis , refused iv vancomycin, flagyl and aztreonam , blood and sputum culture are negative, on oral doxy, cipro, and flagyl since she refused iv treatment. (5) Drug abuse Assessment & Plan: screening for HIV and hepatitis are negative , recommend counseling and rehabilitation Subjective Respiratory: Reports: dry cough Allergies: Coded Allergies: CITRUS AND DERIVATIVES (Verified Allergy, Intermediate, Hives, 12/09/16) AMOXICILLIN (Verified Allergy, Mild, 06/28/15) ASPIRIN (Verified Allergy, Mild, 06/28/15) SALICYLATES (Verified Allergy, Mild, 06/28/15) Bumble Bee (Verified Allergy, Unknown, Hives, 12/09/16) All Systems: reviewed and negative except above Objective Vital Signs Last 24 Hour Vital Signs Date Time Temp Pulse Resp B/P Pulse Ox O2 Delivery O2 Flow Rate FiO2 12/09/16 19:11 92 Nasal Cannula 3.0 12/09/16 19:11 Nasal Cannula 3.0 12/09/16 18:49 100.9 12/09/16 17:29 100.9 12/09/16 17:28 100.9 12/09/16 16:00 100.9 102 18 128/74 93 Nasal Cannula 2.0 12/09/16 12:00 98.1 100 20 127/75 93 Room Air 12/09/16 08:00 100.0 98 18 139/77 92 Room Air 12/09/16 07:08 93 Nasal Cannula 3.0 12/09/16 07:08 Nasal Cannula 3.0 12/09/16 04:00 97.2 85 20 111/72 93 Nasal Cannula 2.0 12/09/16 00:00 98.2 92 22 110/73 92 Nasal Cannula 2.0 Height (Feet): 5 Height (Inches): 6.00 Weight (Pounds): 220 General Appearance: WD/WN, no acute distress HEENT: normocephalic, atraumatic, anicteric, mucous membranes moist Respiratory/Chest: chest wall non-tender, normal breath sounds, no respiratory distress, no accessory muscle use, decreased breath sounds Cardiovascular: normal peripheral pulses, normal rate, regular rhythm, no gallop/murmur, no JVD Abdomen: normal bowel sounds, soft, non tender, no organomegaly, non distended , no mass, no scars, tender Extremities: no cyanosis, no clubbing Laboratory Tests Test 12/09/16 04:45 White Blood Count 16.0 K/UL (4.8-10.8) H Red Blood Count 3.97 M/UL (4.20-5.40) L Hemoglobin 11.3 G/DL (12.0-16.0) L Hematocrit 34.8 % (37.0-47.0) L Mean Corpuscular Volume 88 FL (80-99) Mean Corpuscular Hemoglobin 28.5 PG (27.0-31.0) Mean Corpuscular Hemoglobin Concent 32.5 G/DL (32.0-36.0) Red Cell Distribution Width 12.0 % (11.6-14.8) Platelet Count 456 K/UL (150-450) H Mean Platelet Volume 6.3 FL (6.5-10.1) L Neutrophils (%) (Auto) 75.3 % (45.0-75.0) H Lymphocytes (%) (Auto) 12.2 % (20.0-45.0) L Monocytes (%) (Auto) 9.3 % (1.0-10.0) Eosinophils (%) (Auto) 2.4 % (0.0-3.0) Basophils (%) (Auto) 0.7 % (0.0-2.0) Sodium Level 136 mEQ/L (135-145) Potassium Level 3.8 mEQ/L (3.4-4.9) Chloride Level 93 mEQ/L (98-107) L Carbon Dioxide Level 30 mEQ/L (20-30) Anion Gap 13 (5-15) Blood Urea Nitrogen 11 mg/dL (7-23) Creatinine 0.6 mg/dL (0.5-0.9) Estimat Glomerular Filtration Rate > 60 mL/min (>60) Glucose Level 112 mg/dL (74-106) H Calcium Level 8.2 mg/dL (8.6-10.2) L Current Medications Medications (Trade) Dose Ordered Sig/Ok Route PRN Reason Start Time Stop Time Status Last Admin Dose Admin Acetaminophen (Tylenol) 650 mg Q4H PRN ORAL fever 12/03/16 06:15 01/02/17 06:14 12/09/16 16:30 Al Hydroxide/Mg Hydroxide (Mylanta II) 30 ml Q6H PRN ORAL dyspepsia 12/03/16 06:15 01/02/17 06:14 Albuterol/ Ipratropium (DuoNeb 0.5-3(2.5)mg/3ml) 3 ml Q4H PRN HHN Shortness of Breath 12/09/16 13:30 12/14/16 13:29 Carbamazepine (TEGretol XR) 200 mg DAILY ORAL 12/03/16 09:00 01/02/17 08:59 12/09/16 09:05 Ciprofloxacin (Cipro 500mg tab) 500 mg EVERY 12 HOURS ORAL 12/08/16 21:00 01/03/17 20:59 12/09/16 09:05 Dextrose (Dextrose 50%) STAT PRN IV Hypoglycemia 12/03/16 13:45 01/02/17 13:44 Doxycycline Monohydrate (Vibramycin) 100 mg EVERY 12 HOURS ORAL 12/08/16 21:00 01/03/17 20:59 12/09/16 09:04 Heparin Sodium (Porcine) (Heparin 5000 units/ml) 5,000 units EVERY 12 HOURS SUBQ 12/03/16 09:00 01/02/17 08:59 Heparin Sodium/ Sodium Chloride (Heparin 2000 units/Ns 1000ml premix) 2,000 unit ONCE PRN INJ PICC PLACEMENT 12/10/16 09:00 12/10/16 23:59 Hydromorphone HCl (Dilaudid) 1.5 mg Q4H PRN IVP severe pain 12/06/16 08:45 12/13/16 08:44 12/07/16 09:41 Insulin Aspart (NovoLOG) BEFORE MEALS AND HS SUBQ 12/03/16 16:30 01/02/17 16:29 12/04/16 17:15 Lidocaine (Lidoderm 5% PATCH) 1 patch Q24H TDERMAL 12/05/16 21:00 01/04/17 20:59 12/07/16 22:02 Lidocaine HCl (Xylocaine 1% 30ml) 30 ml ONCE PRN INJ PICC PLACEMENT 12/10/16 09:00 12/10/16 23:59 Metronidazole (Flagyl) 500 mg Q8HR ORAL 12/08/16 22:00 01/03/17 21:59 12/09/16 13:31 Nitroglycerin (Ntg) 0.4 mg Q5M PRN SL Prn Chest Pain 12/03/16 06:15 01/02/17 06:14 Ondansetron HCl (Zofran) 4 mg Q6H PRN IVP Nausea & Vomiting 12/03/16 06:15 01/02/17 06:14 12/07/16 11:29 Oxycodone/ Acetaminophen (Percocet 10/325) 1 tab Q6H PRN ORAL moderate pain 12/06/16 08:30 12/13/16 08:29 12/09/16 16:29 Polyethylene Glycol (Miralax) 17 gm DAILYPRN PRN ORAL Constipation 12/03/16 06:15 01/02/17 06:14 Pregabalin (Lyrica) 150 mg THREE TIMES A DAY ORAL 12/06/16 09:00 01/05/17 08:59 12/09/16 17:50 Promethazine HCl/ Codeine (Phenergan with Codeine) 5 ml Q4H PRN ORAL For Cough 12/03/16 06:15 01/02/17 06:14 Sodium Bicarbonate (Sodium Bicarbonate) 50 ml ONCE PRN IV PICC PLACEMENT 12/10/16 06:00 12/10/16 23:59 Temazepam (Restoril) 15 mg HSPRN PRN ORAL Insomnia 12/09/16 13:30 12/16/16 23:59 Josue Kelley M.D. Dec 09, 2016 19:57
[2016-12-10] VITALS: BP 122/79
[2016-12-10 04:00] VITALS: BP 120/72
[2016-12-10] MEDS: metroNIDAZOLE 500mg tab ORAL SCH (05:35)
[2016-12-10] MEDS ORDERED: Sodium Bicarbonate 8.4% 50ml Inj IV PRN (06:00)
[2016-12-10] MEDS: NovoLOG Insulin Flexpen SUBQ SCH ×2 (06:29→11:30)
[2016-12-10 07:16] LABS: MEAN CORPUSCULAR HEMOGLOBIN 28.4 PG (27.0-31.0); MEAN CORPUSCULAR HGB CONC 32.6 G/DL (32.0-36.0); MEAN CORPUSCULAR VOLUME 87 FL (80-99); MEAN PLATELET VOLUME 5.9 FL (6.5-10.1); PLATELET COUNT 516 K/UL (150-450); RED BLOOD COUNT 4.22 M/UL (4.20-5.40); RED CELL DISTRIBUTION WIDTH 12.3 % (11.6-14.8)
[2016-12-10 07:23] LABS: WHITE BLOOD COUNT 22.4 K/UL (4.8-10.8)
[2016-12-10 07:35] LABS: ANION GAP 15 (5-15); CARBON DIOXIDE 27 mEQ/L (20-30); CHLORIDE 95 mEQ/L (98-107); CREATININE 0.6 mg/dL (0.5-0.9); GLOMERULAR FILTRATION RATE > 60 mL/min (>60); HEMOLYSIS 3; POTASSIUM 3.9 mEQ/L (3.4-4.9); SODIUM 137 mEQ/L (135-145)
[2016-12-10 08:00] VITALS: BP 122/94
--- NOTE | 2016-12-10 08:02 | General Progress Note ---
Assessment/Plan Problem List: (1) Hyperglycemia ICD Codes: R73.9 - Hyperglycemia, unspecified SNOMED: 71627510 (2) Thyroid mass ICD Codes: E07.9 - Disorder of thyroid, unspecified SNOMED: 656378298 (3) CAP (community acquired pneumonia) ICD Codes: J18.9 - Pneumonia, unspecified organism SNOMED: 420881919 (4) Pleural effusion ICD Codes: J90 - Pleural effusion, not elsewhere classified SNOMED: 66039253 Assessment/Plan FNA of the dominant thyroid nodules has been ordered to be done under ultrasound guidance - pending continue SSI Subjective Allergies: Coded Allergies: CITRUS AND DERIVATIVES (Verified Allergy, Intermediate, Hives, 12/09/16) AMOXICILLIN (Verified Allergy, Mild, 06/28/15) ASPIRIN (Verified Allergy, Mild, 06/28/15) SALICYLATES (Verified Allergy, Mild, 06/28/15) Bumble Bee (Verified Allergy, Unknown, Hives, 12/09/16) All Systems: reviewed and negative except above Subjective events noted - interval notes reviewed Objective Last 24 Hour Vital Signs Date Time Temp Pulse Resp B/P Pulse Ox O2 Delivery O2 Flow Rate FiO2 12/10/16 04:00 98.3 90 18 120/72 93 Room Air 12/10/16 00:00 97.9 94 18 122/79 94 Room Air 12/09/16 19:11 92 Nasal Cannula 3.0 12/09/16 19:11 Nasal Cannula 3.0 12/09/16 18:49 100.9 12/09/16 17:29 100.9 12/09/16 17:28 100.9 12/09/16 16:00 100.9 102 18 128/74 93 Nasal Cannula 2.0 12/09/16 12:00 98.1 100 20 127/75 93 Room Air Intake and Output 12/09/16 12/10/16 19:00 07:00 Intake Total 600 ml 120 ml Balance 600 ml 120 ml Intake Oral 600 ml 120 ml # Voids 2 1 Laboratory Tests 12/10/16 05:35: White Blood Count 22.4*H, Red Blood Count 4.22, Hemoglobin 12.0, Hematocrit 36.7L, Mean Corpuscular Volume 87, Mean Corpuscular Hemoglobin 28.4, Mean Corpuscular Hemoglobin Concent 32.6, Red Cell Distribution Width 12.3, Platelet Count 516H, Mean Platelet Volume 5.9L, Neutrophils (%) (Auto) , Lymphocytes (%) (Auto) , Monocytes (%) (Auto) , Eosinophils (%) (Auto) , Basophils (%) (Auto) , Neutrophils % (Manual) [Pending], Lymphocytes % (Manual) [Pending], Platelet Estimate [Pending], Platelet Morphology [Pending], Sodium Level 137, Potassium Level 3.9, Chloride Level 95L, Carbon Dioxide Level 27, Anion Gap 15, Blood Urea Nitrogen 7, Creatinine 0.6, Estimat Glomerular Filtration Rate > 60, Glucose Level 117H, Calcium Level 8.0L Height (Feet): 5 Height (Inches): 6.00 Weight (Pounds): 220 General Appearance: no apparent distress Neck: normal alignment Cardiovascular: normal rate Respiratory/Chest: decreased breath sounds Abdomen: normal bowel sounds Objective Current Medications Medications (Trade) Dose Ordered Sig/Ok Route PRN Reason Start Time Stop Time Status Last Admin Dose Admin Acetaminophen (Tylenol) 650 mg Q4H PRN ORAL fever 12/03/16 06:15 01/02/17 06:14 12/09/16 16:30 Al Hydroxide/Mg Hydroxide (Mylanta II) 30 ml Q6H PRN ORAL dyspepsia 12/03/16 06:15 01/02/17 06:14 Albuterol/ Ipratropium (DuoNeb 0.5-3(2.5)mg/3ml) 3 ml Q4H PRN HHN Shortness of Breath 12/09/16 13:30 12/14/16 13:29 Carbamazepine (TEGretol XR) 200 mg DAILY ORAL 12/03/16 09:00 01/02/17 08:59 12/09/16 09:05 Ciprofloxacin (Cipro 500mg tab) 500 mg EVERY 12 HOURS ORAL 12/08/16 21:00 01/03/17 20:59 12/09/16 20:34 Dextrose (Dextrose 50%) STAT PRN IV Hypoglycemia 12/03/16 13:45 01/02/17 13:44 Doxycycline Monohydrate (Vibramycin) 100 mg EVERY 12 HOURS ORAL 12/08/16 21:00 01/03/17 20:59 12/09/16 20:34 Heparin Sodium (Porcine) (Heparin 5000 units/ml) 5,000 units EVERY 12 HOURS SUBQ 12/03/16 09:00 01/02/17 08:59 Heparin Sodium/ Sodium Chloride (Heparin 2000 units/Ns 1000ml premix) 2,000 unit ONCE PRN INJ PICC PLACEMENT 12/10/16 09:00 12/10/16 23:59 Hydromorphone HCl (Dilaudid) 1.5 mg Q4H PRN IVP severe pain 12/06/16 08:45 12/13/16 08:44 12/07/16 09:41 Insulin Aspart (NovoLOG) BEFORE MEALS AND HS SUBQ 12/03/16 16:30 01/02/17 16:29 12/04/16 17:15 Lidocaine (Lidoderm 5% PATCH) 1 patch Q24H TDERMAL 12/05/16 21:00 01/04/17 20:59 12/09/16 20:35 Lidocaine HCl (Xylocaine 1% 30ml) 30 ml ONCE PRN INJ PICC PLACEMENT 12/10/16 09:00 12/10/16 23:59 Metronidazole (Flagyl) 500 mg Q8HR ORAL 12/08/16 22:00 01/03/17 21:59 12/10/16 05:35 Nitroglycerin (Ntg) 0.4 mg Q5M PRN SL Prn Chest Pain 12/03/16 06:15 01/02/17 06:14 Ondansetron HCl (Zofran) 4 mg Q6H PRN IVP Nausea & Vomiting 12/03/16 06:15 01/02/17 06:14 12/07/16 11:29 Oxycodone/ Acetaminophen (Percocet 10/325) 1 tab Q6H PRN ORAL moderate pain 12/06/16 08:30 12/13/16 08:29 12/10/16 05:36 Polyethylene Glycol (Miralax) 17 gm DAILYPRN PRN ORAL Constipation 12/03/16 06:15 01/02/17 06:14 Pregabalin (Lyrica) 150 mg THREE TIMES A DAY ORAL 12/06/16 09:00 01/05/17 08:59 12/09/16 17:50 Promethazine HCl/ Codeine (Phenergan with Codeine) 5 ml Q4H PRN ORAL For Cough 12/03/16 06:15 01/02/17 06:14 Sodium Bicarbonate (Sodium Bicarbonate) 50 ml ONCE PRN IV PICC PLACEMENT 12/10/16 06:00 12/10/16 23:59 Temazepam (Restoril) 15 mg HSPRN PRN ORAL Insomnia 12/09/16 13:30 12/16/16 23:59 Item Value Date Time Glucose Level 117 mg/dL H 12/10/16 0535 Glucose Level 112 mg/dL H 12/09/16 0445 JOVANY HOFFMAN Dec 10, 2016 08:02
--- NOTE | 2016-12-10 08:31 | General Progress Note ---
Assessment/Plan Assessment/Plan (1) Polysubstance abuse (2) Chest wall pain due to pneumonia and pleural effusion (3) Lumbar DDD (4) Lumbar Spondylosis (5) Lumbar Radiculopathy We will continue Dilaudid, Percocet and Lyrica. The patient was discussed with Dr. Castellano and Dr. Castellano concurred. Subjective Date patient seen: Dec 10, 2016 Time patient seen: 07:00 - am Allergies: Coded Allergies: CITRUS AND DERIVATIVES (Verified Allergy, Intermediate, Hives, 12/09/16) AMOXICILLIN (Verified Allergy, Mild, 06/28/15) ASPIRIN (Verified Allergy, Mild, 06/28/15) SALICYLATES (Verified Allergy, Mild, 06/28/15) Bumble Bee (Verified Allergy, Unknown, Hives, 12/09/16) Subjective REVIEW OF SYSTEMS: Denies rash, fever, chills, sweating, dizziness, drowsiness, blurred vision, sore throat, or change in weight. No bowel or bladder incontinence. She is complaining of left-sided chest wall pain and back pain. SUBJECTIVE: Pain is stable and she has no new complaints. Objective Last 24 Hour Vital Signs Date Time Temp Pulse Resp B/P Pulse Ox O2 Delivery O2 Flow Rate FiO2 12/10/16 08:00 98.1 96 20 122/94 96 Room Air 12/10/16 04:00 98.3 90 18 120/72 93 Room Air 12/10/16 00:00 97.9 94 18 122/79 94 Room Air 12/09/16 19:11 92 Nasal Cannula 3.0 12/09/16 19:11 Nasal Cannula 3.0 12/09/16 18:49 100.9 12/09/16 17:29 100.9 12/09/16 17:28 100.9 12/09/16 16:00 100.9 102 18 128/74 93 Nasal Cannula 2.0 12/09/16 12:00 98.1 100 20 127/75 93 Room Air Intake and Output 12/09/16 12/10/16 19:00 07:00 Intake Total 600 ml 120 ml Balance 600 ml 120 ml Intake Oral 600 ml 120 ml # Voids 2 1 Laboratory Tests 12/10/16 05:35: White Blood Count 22.4*H, Red Blood Count 4.22, Hemoglobin 12.0, Hematocrit 36.7L, Mean Corpuscular Volume 87, Mean Corpuscular Hemoglobin 28.4, Mean Corpuscular Hemoglobin Concent 32.6, Red Cell Distribution Width 12.3, Platelet Count 516H, Mean Platelet Volume 5.9L, Neutrophils (%) (Auto) , Lymphocytes (%) (Auto) , Monocytes (%) (Auto) , Eosinophils (%) (Auto) , Basophils (%) (Auto) , Neutrophils % (Manual) [Pending], Lymphocytes % (Manual) [Pending], Platelet Estimate [Pending], Platelet Morphology [Pending], Sodium Level 137, Potassium Level 3.9, Chloride Level 95L, Carbon Dioxide Level 27, Anion Gap 15, Blood Urea Nitrogen 7, Creatinine 0.6, Estimat Glomerular Filtration Rate > 60, Glucose Level 117H, Calcium Level 8.0L Height (Feet): 5 Height (Inches): 6.00 Weight (Pounds): 220 Objective PHYSICAL EXAMINATION: GENERAL: Alert, awake, and oriented. HEENT: PERRLA. NECK: Range of motion is decreased due to the patient's clinical condition. LUNGS: Decreased breath sounds bilaterally. HEART: S1 and S2, regular. ABDOMEN: Obese. BACK: Range of motion is decreased due to the patient's pain and condition. EXTREMITIES: No cyanosis, clubbing or edema. NEURO: No changes HARSH SCOTT Dec 10, 2016 08:31
[2016-12-10 08:34] LABS: BAND NEUTROPHILS % (MANUAL) 2 % (0-8); BASOPHILS % (MANUAL) 0 % (0-2); EOSINOPHILS % (MANUAL) 0 % (0-3); LYMPHOCYTES % (MANUAL) 11 % (20-45); NEUTROPHILS % (MANUAL) 78 % (45-75); PLATELET ESTIMATE INCREASED; PLATELET MORPHOLOGY NORMAL; TOTAL CELLS COUNTED 100
[2016-12-10] MEDS: Heparin 5000 units/ml inj SUBQ SCH (09:00)
[2016-12-10] MEDS ORDERED: Lidocaine 1% Plain 30 ml INJ PRN (09:00)
[2016-12-10] MEDS ORDERED: Heparin 2000 units/Ns 1000ml INJ PRN (09:00)
[2016-12-10] MEDS: carBAMazepine XR 200mg tab ORAL SCH (09:48)
[2016-12-10] MEDS: Ciprofloxacin 500mg tab ORAL SCH (09:50)
[2016-12-10] MEDS: Lyrica 75mg cap ORAL SCH (09:50)
[2016-12-10 11:39] VITALS: BP 142/92
--- NOTE | 2016-12-10 12:34 | General Progress Note ---
Assessment/Plan Assessment/Plan ASSESSMENT: 1. Thyroid mass 3.2 x 1.9 cm, corresponding to recent mass on CT scan, it is solid, likely slightly hypoechoic as compared to thyroid parenchyma. Obtain bx , however patient refusing 2. Thrombocytosis, likely reactive process 3. Anemia 2/2 chronic disease 4. Leukocytosis, likely secondary to sepsis, septic shock, has now improved. 5. Pleural effusion secondary to pneumonia. 6. Pneumonia, complicated with loculated pleural effusion RECOMMENDATIONS: 1. Transfuse to hgb >7. 2. Obtain peripheral smear. 3. Endo recs 4. To Obtain a FNA bx 5. Followup on ID recs 6. Antibiotics as needed. 7. Pain control. 8. DVT prophylaxis with heparin sq 9. GI prophylaxis as needed. 10. staff Thank you, Anselmo Cronin MD Subjective Constitutional: Reports: no symptoms HEENT: Reports: no symptoms Cardiovascular: Reports: no symptoms Respiratory: Reports: no symptoms Gastrointestinal/Abdominal: Reports: poor fluid intake Genitourinary: Reports: no symptoms Neurologic/Psychiatric: Reports: no symptoms Endocrine: Reports: no symptoms Hematologic/Lymphatic: Reports: anemia Allergies: Coded Allergies: CITRUS AND DERIVATIVES (Verified Allergy, Intermediate, Hives, 12/09/16) AMOXICILLIN (Verified Allergy, Mild, 06/28/15) ASPIRIN (Verified Allergy, Mild, 06/28/15) SALICYLATES (Verified Allergy, Mild, 06/28/15) Bumble Bee (Verified Allergy, Unknown, Hives, 12/09/16) Subjective stable, no fevers or chills reported, no hematochezia, no bleeding Objective Last 24 Hour Vital Signs Date Time Temp Pulse Resp B/P Pulse Ox O2 Delivery O2 Flow Rate FiO2 12/10/16 11:39 98.6 119 20 142/92 93 Nasal Cannula 2.0 12/10/16 10:49 98.1 12/10/16 08:00 98.1 96 20 122/94 96 Room Air 12/10/16 06:45 95 Nasal Cannula 3.0 32 12/10/16 06:45 Nasal Cannula 3.0 32 12/10/16 04:00 98.3 90 18 120/72 93 Room Air 12/10/16 00:00 97.9 94 18 122/79 94 Room Air 12/09/16 19:11 92 Nasal Cannula 3.0 12/09/16 19:11 Nasal Cannula 3.0 12/09/16 17:29 100.9 12/09/16 17:28 100.9 12/09/16 16:00 100.9 102 18 128/74 93 Nasal Cannula 2.0 Intake and Output 12/09/16 12/10/16 19:00 07:00 Intake Total 600 ml 120 ml Balance 600 ml 120 ml Intake Oral 600 ml 120 ml # Voids 2 1 Laboratory Tests 12/10/16 05:35: White Blood Count 22.4*H, Red Blood Count 4.22, Hemoglobin 12.0, Hematocrit 36.7L, Mean Corpuscular Volume 87, Mean Corpuscular Hemoglobin 28.4, Mean Corpuscular Hemoglobin Concent 32.6, Red Cell Distribution Width 12.3, Platelet Count 516H, Mean Platelet Volume 5.9L, Neutrophils (%) (Auto) , Lymphocytes (%) (Auto) , Monocytes (%) (Auto) , Eosinophils (%) (Auto) , Basophils (%) (Auto) , Differential Total Cells Counted 100, Neutrophils % (Manual) 78H, Lymphocytes % (Manual) 11L, Monocytes % (Manual) 9, Eosinophils % (Manual) 0, Basophils % ( Manual) 0, Band Neutrophils 2, Platelet Estimate IncreasedH, Platelet Morphology Normal, Red Blood Cell Morphology Normal, Sodium Level 137, Potassium Level 3.9, Chloride Level 95L, Carbon Dioxide Level 27, Anion Gap 15, Blood Urea Nitrogen 7, Creatinine 0.6, Estimat Glomerular Filtration Rate > 60, Glucose Level 117H, Calcium Level 8.0L Height (Feet): 5 Height (Inches): 6.00 Weight (Pounds): 220 General Appearance: no apparent distress Neck: supple Cardiovascular: regular rhythm Respiratory/Chest: normal breath sounds Abdomen: normal bowel sounds Pelvis: no masses Extremities: non-tender Edema: 1+ Leg (L), 1+ Leg (R) Edema: mild edema Neurologic: alert Skin: warm/dry Anselmo Cronin Dec 10, 2016 12:34
--- NOTE | 2016-12-11 13:59 | Discharge Summary ---
Discharge Summary Hospital Course Date of Admission Dec 03, 2016 at 01:53 Date of Discharge Dec 10, 2016 at 13:30 Admitting Diagnosis Pneumonia HPI Micky Ramires is a 46 year old female who was admitted on Dec 03, 2016 at 01:53 for Pneumonia Hospital Course dc summary dictated #[id number] Discharge Condition Upon Discharge: unchanged Discharge Disposition Patient signed AMA Discharge Diagnoses: Kayden (Miri),Mona WILKINSON Dec 11, 2016 13:59
--- NOTE | 2016-12-12 04:57 | Discharge Summary 2 SIG ---
DATE OF ADMISSION: 12/03/2016 DATE OF SIGNING AGAINST MEDICAL ADVICE: 12/10/2016 REASON FOR ADMISSION: 46-year-old female with a history of chronic pain and drug abuse, presented with the complaint of the chest pain for two days. She stated that she was coughing for two days and woke up with severe pain worse with coughing, with inspiration, and with movement. The pain described as 10/10 localized in the left chest. No radiation. No diaphoresis. No shortness of breath. No exertional dyspnea. No orthopnea. Workup in the emergency room revealed leukocytosis, tachycardia, and chest x-ray revealed left lower lobe infiltrate with effusion. A CT of the chest revealed left lower infiltrate with effusion. Troponin was negative. EKG shows sinus tachycardia with heart rate of 111. The patient started on empiric antibiotics and admitted for further management. ADMITTING DIAGNOSES: sepsis pneumonia intractable pain history of drug abuse. HOSPITAL COURSE: The patient admitted to the floor. Pulmonology and ID consults initially were requested. Supplemental oxygen and pulmonary toilet provided as needed. CTA of the chest and thorax revealed no gross large vessel central pulmonary emboli, however ectatic main pulmonary artery may indicate pulmonary arterial hypertension. Consolidation with atelectasis of most of the left lower lobe, moderate sized left-side pleural effusion. A 3.1 to 1.1 posterior right lobe thyroid nodule accidentally was discovered. Moderate to large sliding type hiatal hernia. Associated distal esophageal wall thickening, possibly esophagitis, neoplasm less likely, but also possible. Barrel Filler Head seen the patient, ordered a thoracentesis as well as the PPD testing. Thoracentesis was subsequently performed on 12/05/2016, which yielded 800 mL of pleural fluid. Multiloculated left pleural effusion with incomplete drainage noted. Fluid culture was negative. Chest x-ray post thoracentesis revealed no pneumothorax, but marked increase in volume of left pleural effusion despite thoracentesis, underlying left middle lower lung base pathology not excluded . The patient was on isolation. The patient subsequently also undergone thyroid ultrasound due to an accidental finding of the thyroid mass. Thyroid ultrasound revealed 3.2 x 1.9 posterior right lower pole thyroid nodule corresponding to abnormality described on recent CT. Team Leader Surgery consulted, Fine needle aspiration of thyroid mass under ultrasound guidance was ordered, however the patient declined the procedure. Thyroid function test was within normal limits. ID doctor followed. The blood culture negative. Body fluid culture from thoracentesis negative. The patient was on empiric antibiotics. Blood sugar was managed with sliding scale insulin. Hemoglobin A1c - 5.2 at goal. Hemoglobin and hematocrit at the baseline and stable. No need for transfusion. The pain specialist followed the patient to address pain management issue. Aviation Neuropsychologist/oncologist followed the patient for the thyroid mass. In terms of the loculated pleural effusion with incomplete drainage, cardiothoracic surgery consult was requested. Dr. Richardson seen the patient , and he confirmed, that the patient has left lower lobe consolidation associated with parapneumonic effusion. The patient was evaluated at the bedside. The surgeon recommends left video-assisted thoracoscopic surgery with intrathoracic washout. However, the patient refused this procedure as well. The patient did not want to stay in the hospital any longer. On that day she had leukocytosis of 22.4. No fevers. The patient decided to sign against medical advice without awaiting for a doctor to call back. The risks and consequences of signing against medical advice were explained to the patient. Despite all this, the patient decided to sign the form. The patient stated, that she does not believe she needs to be in the hospital and was eager to leave. FINAL DIAGNOSIS: pneumonia left loculated parapneumonic pleural effusion s/p thoracentesis ( incomplete) -800cc elevated D dimer thyroid nodule /mass amphetamine abuse DM Aidan Melara D.O. Mona Monique ([facility] N.P. DR: RUDY JOB#: [id number] CC: SANDRA
== END 2016-12-10 13:30 | disposition left against medical advice (07) | DRG 720 ==
LOC: ENRESERVDT → ENRESERVTM → EMR 23:15 → 4E 12-03 01:53 → EDBEDREQ 12-03 02:04 → 4W 12-03 19:22
PROC: 0W9B3ZZ Drainage of Left Pleural Cavity, Percutaneous Approach (ICD-10-PCS; principal; 2016-12-05)
DX: A41.9 Sepsis, unspecified organism (principal); J90 Pleural effusion, not elsewhere classified; J18.9 Pneumonia, unspecified organism; E10.65 Type 1 diabetes mellitus with hyperglycemia; N39.0 Urinary tract infection, site not specified; Z88.6 Allergy status to analgesic agent; Z88.1 Allergy status to other antibiotic agents; Z88.0 Allergy status to penicillin; Z88.8 Allergy status to other drugs, medicaments and biological substances; K44.9 Diaphragmatic hernia without obstruction or gangrene; F15.10 Other stimulant abuse, uncomplicated; F19.10 Other psychoactive substance abuse, uncomplicated; J45.909 Unspecified asthma, uncomplicated; F31.9 Bipolar disorder, unspecified; M51.16 Intervertebral disc disorders with radiculopathy, lumbar region; M47.26 Other spondylosis with radiculopathy, lumbar region; G89.4 Chronic pain syndrome; Z59.0 Homelessness; I25.10 Atherosclerotic heart disease of native coronary artery without angina pectoris; E07.9 Disorder of thyroid, unspecified; D47.3 Essential (hemorrhagic) thrombocythemia
CPT/HCPCS: 36415; 71010; 71275; 76536; 76942; 80048; 80053; 80069; 80202; 80300; 81003; 81025; 82164; 82550; 82553; 82962; 83036; 83605; 84439; 84443; 84481; 84484; 85007; 85025; 85379; 85610; 85730; 86580; 86703; 86709; 86803; 87040; 87070; 87081; 87205; 87340; 87517; 88104; 93005; 94664; 94760; J1815; J2405